=== PATIENT | male | born 1950 | race Caucasian/White ===

== ENCOUNTER 2022-06-19 18:35 | Inpatient (IN) ==
[2022-06-19 19:59] LABS: Basophils # (auto) 0.06 K/uL (0-0.2); Basophils % (auto) 0.6 %; Eosinophils # (auto) 0.32 K/uL (0-0.50); Eosinophils % (auto) 3.4 %; Hematocrit (blood only) 43.5 % (40.1-51.0); Hemoglobin 14.9 g/dl (14.0-18.0); Immature Granulocytes # (auto) 0.05 K/uL (0.00-0.02); Immature Granulocytes % (auto) 0.5 %; Lymphocytes # (auto) 2.04 K/uL (1.2-3.4); Lymphocytes % (auto) 21.5 %; Mean Corpuscular Hemoglobin 32.6 pg (25.0-34.0); Mean Corpuscular Hgb Conc 34.3 g/dL (32.0-36.0); Mean Corpuscular Volume 95.2 fL (80.0-100.0); Monocytes # (auto) 1.15 K/uL (0.24-0.82); Monocytes % (auto) 12.1 %; Neutrophils # (auto) 5.86 K/uL (1.4-6.5); Neutrophils % (auto) 61.9 %; Platelet Count 291 K/uL (130-400); RDW Coefficient of Variation 14.2 % (11.5-14.5); RDW Standard Deviation 49.3 fL (36.4-46.3); Red Blood Count 4.57 M/uL (4.63-6.08); White Blood Count 9.48 K/ul (4.8-10.8)
[2022-06-19 20:26] LABS: Albumin Globulin Ratio 1.3 (0.9-2); Albumin Level 4.1 gm/dl (3.4-5.0); BUN Creatinine Ratio 14.1 (10-20); Calcium 9.5 mg/dl (8.5-10.1); Creatinine Clr Calc Pharmacy 106.8 ml/min; Est GFR (African American) 105.3 ml/min; Est GFR (Non-African American) 90.8 ml/min; Globulin 3.2 gm/dl (2.5-4.0); Potassium 4.4 mmol/L (3.5-5.1); Total Protein 7.3 gm/dl (6.0-8.3)
[2022-06-19] MEDS ORDERED: SODIUM CHLORIDE 0.9% 1000ML 1,000 ML IV ONE (21:16)
[2022-06-19] MEDS ORDERED: PIPERACILLIN/TAZOBACTAM 4.5 GM/120 ML BAG IV ONE (21:16)
--- NOTE | 2022-06-19 21:24 | Emergency Department Note ---
Impression & Plan Catheter-associated urinary tract infection ED Provider Note NAME: LORAINE GALEAS AGE: 71 SEX: M : 1950 ARRIVES VIA: Walk-In INFORMANT: Patient, ED PROVIDER(S): Deep Keene DO CHIEF COMPLAINT: Urinary symptoms HPI: The patient is a 71-year-old male who presented to the emergency department for urinary symptoms. The patient has been dealing with chronic urinary issues over the course of the last year. He has a suprapubic catheter. He also has a stimulator that was implanted in [facility]. This is hopefully to help with his urinary symptoms. He states he noticed cloudy urine recently. He is suprapubic catheter was changed a few weeks ago. He states that he had a urinalysis done as an outpatient on the . He had antibiotics called in by his primary care physician but he was told not to start the antibiotics today as the urine culture returned positive for Pseudomonas which was resistant and would require IV antibiotics. The patient states he has no fever. He has had no vomiting. He does note some abdominal discomfort. He denies having any swelling in the lower extremities. ROS: See above HPI for pertinent positives & negatives. A total of 10 systems reviewed and were otherwise negative. PAST MEDICAL HISTORY: See Below PAST SURGICAL HISTORY: See Below FAMILY HISTORY: See Below SOCIAL HISTORY: See Below HOME MEDICATIONS: See Below ALLERGIES: See Below VITALS: See Below PHYSICAL EXAMINATION: GENERAL: Patient is awake alert in no acute distress patient is resting comfortably and showing no signs of anxiety EYES: The conjunctivae are clear. The pupils are round and reactive. EARS, NOSE, MOUTH AND THROAT: The nose is without any evidence of any deformity. NECK: The neck is nontender and supple. RESPIRATORY: Normal respiratory effort is noted there is no evidence of wheezing rhonchi or rales CARDIOVASCULAR: Regular rate and rhythm noted there no murmurs rubs or gallops normal S1 normal S2. GASTROINTESTINAL: The abdomen was soft and mildly distended. There is no specific tenderness guarding rigidity. MUSCULOSKELETAL/EXTREMITIES: There is no evidence of gross deformity full range of motion is noted in the hips and shoulders. SKIN: The skin is warm and dry. Trace pedal edema was noted bilaterally. NEUROLOGIC: Patient is awake alert and oriented x3 MEDICAL DECISION MAKING: The patient is a 71-year-old male who presented to the emergency department at the request of his physician for an evaluation of urinary tract infection. The patient has a history of a chronic indwelling suprapubic Patel catheter. The patient was found to have Pseudomonas in the urine. He states he has been having cloudy urine. This does appear to be consistent with an acute infection. The patient was treated with IV fluids and IV antibiotics in the emergency department. I discussed patient's laboratory results with him. I also discussed this case with the on-call [facility] hospitalist. They have agreed to evaluate the patient in the emergency department. Triage Nursing notes reviewed. Prior medical records reviewed Vital Signs: reviewed and remarkable for elevated blood pressure. Differential diagnosis: Catheter malfunction, obstruction, dehydration, urinary tract infection, urinary retention, acute kidney injury, as well as other pathologies. ER treatment provided: See below Diagnostics interpreted by me: ECG: none Cardiac Monitoring: An order was placed for continuous cardiac monitoring. The monitor shows a rate of 80 bpm with sinus rhythm. Laboratory studies: As stated above and show below. Imaging studies: See below Consultation(s): I discussed this case with Dr. Oglesby who is on-call for the [facility]ist group. Past Med/Surg History Medical History Asthma Basal cell carcinoma of back Bladder outlet obstruction Bladder wall thickening BPH (benign prostatic hyperplasia) Chronic back pain Hepatic steatosis History of COVID-19 Dx 09/2020 > symptoms at time of: fatigue, loss of taste and smell > resolved Incarcerated ventral hernia Obesity Suprapubic catheter Urethral stricture Urinary retention Surgical History H/O dilation of urethra x3 H/O ventral hernia repair (04/10/22) Robotic Laparoscopic Ventral Hernia Repair with Mesh, Transabdominal pre peritoneal - John Perez DO, FACS History of basal cell carcinoma (BCC) excision (05/28/22) FINAL DIAGNOSIS Skin, left back (punch biopsy): - A micronodular and macronodular basal cell carcinoma is seen. - This basal cell carcinoma extends to the edges of the punch biopsy specimen. - A conservative reexcision of this site to obtain negative surgical margins is suggested. History of cystoscopy irect Visual Internal Urethrotomy History of surgery suprapubic cath placed @ [facility] [place] History of ureter repair STRICTURE Hx of biopsy 10/29/2021: lesion on his back punch biopsy Dr. Perez in office Hx of biopsy Back Mass Wide Local Excision (11/20/21): Grade view 2, MAC#3, [place] 7.5 [place] [facility] [place] Family History Mother Alcohol abuse Bone cancer Dementia Breast cancer She age 85 Uterine cancer Brother Alcohol abuse Brother Depression - suicide. Father Dementia Began after open heart surgery age 89. Still living as of 10/2019. born [birth year] Heart disease valvular Other No family history of adverse response to anesthesia Social History Smoking Status: Never smoker Age Started Using Tobacco: 21; Age Quit Using Tobacco: 26; Years Smoked: 5; Second Hand Exposure: No; Hx Alcohol Use: Yes Alcohol type: wine Alcohol Intake Frequency: 4 or More x per/Week Hx Substance Use: No Preferred Language: Indonesian Communication Ability: Effective Visual Impairment: No Limitations Hearing Ability: Normal Tie Tape Machine Operator Required: No Beliefs That Will Affect Care: None marital status: Current Living Situation: Spouse current occupational status: retired Feels Safe at Home: Yes Childhood Exposure to Second-Hand Smoke: Yes caffeine: Yes Dental Care, Regularly: Yes Physical Activity Frequency: 3-4 Times per Week Physical Activity Frequency Comment: walk Seatbelt Use: always Sunscreen Use: Yes Do you think of yourself as: straight/heterosexual Assistive Devices: None Allergies Allergies Allergy/AdvReac Type Severity Reaction Status Date / Time No Known Allergies Allergy Verified 06/19/22 22:40 Home Meds Home Medications Medication Instructions Recorded Confirmed ascorbate calcium (vitamin C) 500 500 mg PO QAM 03/22/19 06/19/22 mg tablet vitamin B complex 1 cap PO QAM 03/22/19 06/19/22 vitamin E 200 unit capsule 200 units PO QAM 03/22/19 06/19/22 Lactobacillus acidophilus 10 1 cell PO QAM 11/09/19 06/19/22 billion cell capsule (Probiotic) multivitamin 1 tab PO QAM 10/15/20 06/19/22 aspirin 81 mg tablet,delayed 81 mg PO QAM 07/11/21 06/19/22 release (Adult Low Dose Aspirin) cholecalciferol (vitamin D3) 25 1,000 unit PO QAM 10/16/21 06/19/22 mcg (1,000 unit) capsule omega 9-uoh-dtq-fish oil 1,000 mg 1 cap PO QAM 06/19/22 06/19/22 (120 mg-180 mg) capsule (Fish Oil) Previous Rx's Medication Instructions Recorded duloxetine 60 mg capsule,delayed 60 mg PO QAM #30 caps 05/22/22 release levofloxacin 750 mg tablet 750 mg PO DAILY #10 tabs 06/18/22 tramadol 50 mg tablet 50 mg PO HS PRN pain #30 tabs 06/18/22 Results & Data (ED) Vital Signs Vital Signs - 24 hr 06/19/22 19:08 06/19/22 22:00 06/20/22 00:00 Temperature 36.8 C Temperature Source Temporal Artery Scan Pulse Rate 70 Pulse Rate [Finger] 62 88 Pulse Rhythm [Finger] Regular Regular Pulse Strength [Finger] Normal Normal Respiratory Rate 16 18 18 Respiratory Effort / Characteristics Non-Labored Spontaneous Non-Labored Non-Labored Respiratory Depth Normal Normal Normal Respiratory Pattern Regular Regular Regular Blood Pressure 145/95 H Blood Pressure [Right Arm] 164/104 H 146/93 H Blood Pressure Mean 111 Blood Pressure Mean [Right Arm] 124 110 Blood Pressure Position [Right Arm] Lying Lying Pulse Oximetry 98 98 97 Oxygen Delivery Method Room Air Room Air Room Air Sepsis Recent Fever Within 48 Hours No Sepsis New/Unexplained Change in Mental Status No Sepsis Action Taken by Nursing No Action Required Home Medications Current Medication List: was personally reviewed by me Laboratory Data Attestation: I reviewed the patient's lab results. Result diagrams: 06/19/22 19:40 06/19/22 19:40 Lab Results 06/19/22 06/19/22 06/19/22 Range/Units 19:40 19:40 21:07 WBC 9.48 (4.8-10.8) K/ul RBC 4.57 L (4.63-6.08) M/uL Hgb 14.9 (14.0-18.0) g/dl Hct 43.5 (40.1-51.0) % MCV 95.2 (80.0-100.0) fL MCH 32.6 (25.0-34.0) pg MCHC 34.3 (32.0-36.0) g/dL RDW Std Deviation 49.3 H (36.4-46.3) fL RDW Coeff of Mandie 14.2 (11.5-14.5) % Plt Count 291 (130-400) K/uL MPV 9.0 L (9.4-12.4) fL Immature Gran % (Auto) 0.5 % Neut % (Auto) 61.9 % Lymph % (Auto) 21.5 % Kidder % (Auto) 12.1 % Eos % (Auto) 3.4 % Baso % (Auto) 0.6 % Neut # (Auto) 5.86 (1.4-6.5) K/uL Lymph # (Auto) 2.04 (1.2-3.4) K/uL [place] # (Auto) 1.15 H (0.24-0.82) K/uL Eos # (Auto) 0.32 (0-0.50) K/uL Baso # (Auto) 0.06 (0-0.2) K/uL Immature Gran # (Auto) 0.05 H (0.00-0.02) K/uL Sodium 138 (136-145) mmol/L Potassium 4.4 (3.5-5.1) mmol/L Chloride 104 (98-107) mmol/L Carbon Dioxide 25 (21-32) mmol/L Anion Gap 9 (3-11) BUN 11 (6-23) mg/dl Creatinine 0.78 (0.6-1.4) mg/dl Est Cr Clr Drug Dosing 106.8 ml/min Est GFR ( Amer) 105.3 ml/min Est GFR (Non-Af Amer) 90.8 ml/min BUN/Creatinine Ratio 14.1 (10-20) Glucose 80 (70-99(Fasting)) mg/dl Calcium 9.5 (8.5-10.1) mg/dl Total Bilirubin 1.0 (0.2-1.0) mg/dl AST 29 (13-39) U/L ALT 25 (7-52) U/L Alkaline Phosphatase 93 (34-104) U/L Total Protein 7.3 (6.0-8.3) gm/dl Albumin 4.1 (3.4-5.0) gm/dl Globulin 3.2 (2.5-4.0) gm/dl Albumin/Globulin Ratio 1.3 (0.9-2) Urine Color Yellow Urine Appearance Cloudy A (Clear) Urine pH 5.0 (4.5-7.5) Ur Specific [place] 1.017 (1.000-1.030) Urine Protein 1+ H (Negative) Urine Glucose (UA) Negative (Negative) Urine Ketones Negative (Negative) Urine Blood 3+ H (Negative) Urine Nitrite Positive A (Negative) Urine Bilirubin Negative (Negative) Urine Urobilinogen Negative (Negative) Ur Leukocyte Esterase 3+ H (Negative) Urine WBC (Auto) >30 H (0-5) /hpf Urine RBC (Auto) 10-30 H (0-4) /hpf U Hyaline Cast (Auto) 0 (0-5) /lpf U Epithel Cells (Auto) 0-5 (0-5) /lpf Urine Bacteria (Auto) Negative (Negative) Urine Yeast Budding A (None Prsent) SARS-CoV-2, RNA, NAAT (NEGATIVE) 06/19/22 Range/Units 22:00 WBC (4.8-10.8) K/ul RBC (4.63-6.08) M/uL Hgb (14.0-18.0) g/dl Hct (40.1-51.0) % MCV (80.0-100.0) fL MCH (25.0-34.0) pg MCHC (32.0-36.0) g/dL RDW Std Deviation (36.4-46.3) fL RDW Coeff of Mandie (11.5-14.5) % Plt Count (130-400) K/uL MPV (9.4-12.4) fL Immature Gran % (Auto) % Neut % (Auto) % Lymph % (Auto) % Kid[place] % (Auto) % Eos % (Auto) % Baso % (Auto) % Neut # (Auto) (1.4-6.5) K/uL Lymph # (Auto) (1.2-3.4) K/uL [place] # (Auto) (0.24-0.82) K/uL Eos # (Auto) (0-0.50) K/uL Baso # (Auto) (0-0.2) K/uL Immature Gran # (Auto) (0.00-0.02) K/uL Sodium (136-145) mmol/L Potassium (3.5-5.1) mmol/L Chloride (98-107) mmol/L Carbon Dioxide (21-32) mmol/L Anion Gap (3-11) BUN (6-23) mg/dl Creatinine (0.6-1.4) mg/dl Est Cr Clr Drug Dosing ml/min Est GFR ( Amer) ml/min Est GFR (Non-Af Amer) ml/min BUN/Creatinine Ratio (10-20) Glucose (70-99(Fasting)) mg/dl Calcium (8.5-10.1) mg/dl Total Bilirubin (0.2-1.0) mg/dl AST (13-39) U/L ALT (7-52) U/L Alkaline Phosphatase (34-104) U/L Total Protein (6.0-8.3) gm/dl Albumin (3.4-5.0) gm/dl Globulin (2.5-4.0) gm/dl Albumin/Globulin Ratio (0.9-2) Urine Color Urine Appearance (Clear) Urine pH (4.5-7.5) Ur Specific [place] (1.000-1.030) Urine Protein (Negative) Urine Glucose (UA) (Negative) Urine Ketones (Negative) Urine Blood (Negative) Urine Nitrite (Negative) Urine Bilirubin (Negative) Urine Urobilinogen (Negative) Ur Leukocyte Esterase (Negative) Urine WBC (Auto) (0-5) /hpf Urine RBC (Auto) (0-4) /hpf U Hyaline Cast (Auto) (0-5) /lpf U Epithel Cells (Auto) (0-5) /lpf Urine Bacteria (Auto) (Negative) Urine Yeast (None Prsent) SARS-CoV-2, RNA, NAAT NEGATIVE (NEGATIVE) Administered Medications Discontinued Medications Sodium Chloride (Nss 1000ml) 1,000 mls @ 999 mls/hr IV .[id number] ONE Stop: 06/19/22 22:16 Last Infusion: 06/19/22 23:41 Dose: 0 mls/hr Documented By: Admin: 06/19/22 22:03 Dose: 999 mls/hr Documented By: LRS Piperacillin Sod/Tazobactam Sod (Zosyn) 4.5 gm in 120 mls @ 240 mls/hr IV NOW ONE Stop: 06/19/22 21:45 Last Infusion: 06/19/22 22:43 Dose: 0 mls/hr Documented By: Admin: 06/19/22 22:03 Dose: 240 mls/hr Documented By: KINGS Morphine Sulfate (Morphine Sulfate 2 Mg/Ml Carp) 1 mg IV NOW STA Stop: 06/19/22 22:56 Last Admin: 06/19/22 23:04 Dose: 1 mg Documented By: KINGS Discharge Plan Visit Data Chief Complaint: Medication Request Stated Complaint: REFERRD BY DOCTOR, IV FLUIDS, MEDICATION ED Provider: Deep Keene Discharge Problem: Catheter-associated urinary tract infection Patient Disposition: Being Evaluated by Hospitalist Forms Stand Alone Forms: My [facility] Prescriptions Prescriptions: No Action levofloxacin 750 mg tablet 750 mg PO DAILY Qty: 10 0RF tramadol 50 mg tablet 50 mg PO HS PRN (Reason: pain) Qty: 30 0RF duloxetine 60 mg capsule,delayed release(DR/EC) 60 mg PO QAM Qty: 30 3RF Probiotic 10 billion cell capsule 1 cell PO QAM cholecalciferol (vitamin D3) 25 mcg (1,000 unit) capsule 1,000 unit PO QAM ascorbate calcium (vitamin C) 500 mg tablet 500 mg PO QAM vitamin E 200 unit capsule 200 units PO QAM vitamin B complex capsule 1 cap PO QAM multivitamin Tablet 1 tab PO QAM aspirin [Adult Low Dose Aspirin] 81 mg tablet,delayed release (DR/EC) 81 mg PO QAM omega 8-mho-hmk-fish oil [Fish Oil] 1,000 mg (120 mg-180 mg) Capsule 1 cap PO QAM Referrals Referrals: Eduardo Gonzalez DO [Physician] -
[2022-06-19 22:02] LABS: Appearance Urine Cloudy (Clear); Bacteria Urine Automated Negative (Negative); Bilirubin Urine Negative (Negative); Blood Urine 3+ (Negative); Cast Urine Automated 0 /lpf (0-5); Color Urine Yellow; Epithelial Cell Urine Auto 0-5 /lpf (0-5); Glucose Urine UA Negative (Negative); Ketones Urine Negative (Negative); Leukocyte Esterase Urine 3+ (Negative); Nitrite Urine Positive (Negative); Protein Urine 1+ (Negative); Specific Gravity Urine 1.017 (1.000-1.030); Urobilinogen Urine Negative (Negative); WBC Urine Automated >30 /hpf (0-5)
--- NOTE | 2022-06-19 22:10 | History & Physical Report ---
Date of Service June 19, 2022 Assessment & Plan (1) Catheter-associated urinary tract infection: Plan: -Zosyn -Urology consultation -Bladder scan as needed -Flush catheter as needed -Morphine PRN (2) Depression: Plan: Chronic. 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 Cooper. Patient had a suprapubic catheter placed as well at [facility] [place]. He reports that the site has never done well. He has a considerable amount of crusting and discharge. He has noted purulent urine over the last 11-12 days - described as frothy and opaque. Also with bladder pressure and difficulty passing urine over the last several days. He denies fever, chills, chest pain, cough, SOB, nausea, vomiting, diarrhea or constipation. Had UA performed which suggested infection. Culture with Pseudomonas - resi stant to Cipro and Levaquin. In the ER he is afebrile, HD stable, NAD. Complaining of suprapubic pain, requesting medication. ER Course: Zosyn, Morphine, NSS Allergies Allergy/AdvReac Type Severity Reaction Status Date / Time No Known Allergies Allergy Verified 06/19/22 22:40 Home Medications Medication Instructions Recorded Confirmed Type ascorbate calcium (vitamin C) 500 500 mg PO QAM 03/22/19 06/19/22 History mg tablet vitamin B complex 1 cap PO QAM 03/22/19 06/19/22 History vitamin E 200 unit capsule 200 units PO QAM 03/22/19 06/19/22 History Lactobacillus acidophilus 10 1 cell PO QAM 11/09/19 06/19/22 History billion cell capsule (Probiotic) multivitamin 1 tab PO QAM 10/15/20 06/19/22 History aspirin 81 mg tablet,delayed 81 mg PO QAM 07/11/21 06/19/22 History release (Adult Low Dose Aspirin) cholecalciferol (vitamin D3) 25 1,000 unit PO QAM 10/16/21 06/19/22 History mcg (1,000 unit) capsule duloxetine 60 mg capsule,delayed 60 mg PO QAM #30 caps 05/22/22 06/19/22 Rx release levofloxacin 750 mg tablet 750 mg PO DAILY #10 tabs 06/18/22 06/19/22 Rx tramadol 50 mg tablet 50 mg PO HS PRN pain #30 tabs 06/18/22 06/19/22 Rx omega 4-ofn-xtg-fish oil 1,000 mg 1 cap PO QAM 06/19/22 06/19/22 History (120 mg-180 mg) capsule (Fish Oil) Past Med/Surg History Medical History Asthma Basal cell carcinoma of back Bladder outlet obstruction Bladder wall thickening BPH (benign prostatic hyperplasia) Chronic back pain Hepatic steatosis History of COVID-19 Dx 09/2020 > symptoms at time of: fatigue, loss of taste and smell > resolved Incarcerated ventral hernia Obesity Suprapubic catheter Urethral stricture Urinary retention Surgical History H/O dilation of urethra x3 H/O ventral hernia repair (04/10/22) Robotic Laparoscopic Ventral Hernia Repair with Mesh, Transabdominal pre per trixie Perez DO, FACS History of basal cell carcinoma (BCC) excision (05/28/22) FINAL DIAGNOSIS Skin, left back (punch biopsy): - A micronodular and macronodular basal cell carcinoma is seen. - This basal cell carcinoma extends to the edges of the punch biopsy specimen. - A conservative reexcision of this site to obtain negative surgical margins is suggested. History of cystoscopy irect Visual Internal Urethrotomy History of surgery suprapubic cath [place] [facility] [place] History of ureter repair STRICTURE Hx of biopsy 10/29/2021: lesion on his back punch biopsy Dr. Perez in office Hx of biopsy Back Mass Wide Local Excision (11/20/21): Grade view 2, MAC#3, ETT 7.5 at [facility] [place] tonsillectomy Family History Mother Alcohol abuse Bone cancer Dementia Breast cancer She age 85 Uterine cancer Brother Alcohol abuse Brother Depression - suicide. Father Dementia Began after open heart surgery age 89. Still living as of 10/2019. born 1923 Heart disease valvular Other No family history of adverse response to anesthesia Social History Smoking Status: Former smoker Age Started Using Tobacco: 21; Age Quit Using Tobacco: 26; Years Smoked: 5; Second Hand Exposure: No; Hx Alcohol Use: Yes Alcohol type: wine Alcohol Intake Frequency: 4 or More x per/Week Hx Substance Use: No Preferred Language: [place] Korean Communication Ability: Effective Visual Impairment: No Limitations Hearing Ability: Normal Lookback Coordinator Required: No Beliefs That Will Affect Care: None marital status: Current Living Situation: Spouse Current Living Situation Comment: current occupational status: retired Other Information That Helps Us Care for You: No Feels Safe at Home: Yes Safety Concerns: Feels Safe At This Time Childhood Exposure to Second-Hand Smoke: Yes caffeine: Yes Dental Care, Regularly: Yes Physical Activity Frequency: 3-4 Times per Week Physical Activity Frequency Comment: walk Seatbelt Use: always Sunscreen Use: Yes Do you think of yourself as: straight/heterosexual Assistive Devices: None Review of Systems Review of Systems: All systems reviewed & are unremarkable except as noted in HPI & below Physical Exam Physical Exam: General: patient resting comfortably, NAD, non-toxic in appearance, AA&O x 4 Skin: warm, dry, intact, no rashes or lesions HEENT: NC/AT, PERRL, EOMI, anicteric sclera, conjunctiva without injection, external ear normal to inspection and nontender, nares patent, moist mucus membranes, dentition intact, no oropharyngeal lesions, neck supple, trachea midline, no LAD, no thyromegaly, no JVD Heart: +S1/S2, regular, no m/r/g Lungs: equal air entry bilaterally, no rales/rhonchi/wheezes Abd: +BS, soft, NT/ND, no masses/organomegaly/ascites, suprapubic catheter with crusting at entry site, bladder stimulator present on back Ext: warm, 2+ pulses in UE/LE bilaterally, no clubbing/cyanosis or edema Neuro: nonfocal, patient AA&O x 4, speech intact, no facial droop, moving all extremities on command with equal strength 5/5 Results & Data Results & Data ([facility]) Vital Signs (Past 12 Hours) Vital Signs Temp Pulse Pulse Resp BP BP Pulse Ox 06/19/22 22:00 62 18 164/104 H 98 06/19/22 19:08 36.8 C 70 16 145/95 H 98 O2 Del Method 06/19/22 22:00 Room Air 06/19/22 19:08 Room Air Laboratory Results Laboratory Results WBC 9.48 K/ul (4.8-10.8) 06/19/22 19:40 RBC 4.57 M/uL (4.63-6.08) L 06/19/22 19:40 Hgb 14.9 g/dl (14.0-18.0) 06/19/22 19:40 Hct 43.5 % (40.1-51.0) 06/19/22 19:40 MCV 95.2 fL (80.0-100.0) 06/19/22 19:40 MCH 32.6 pg (25.0-34.0) 06/19/22 19:40 MCHC 34.3 g/dL (32.0-36.0) 06/19/22 19:40 RDW Std Deviation 49.3 fL (36.4-46.3) H 06/19/22 19:40 RDW Coeff of Mandie 14.2 % (11.5-14.5) 06/19/22 19:40 Plt Count 291 K/uL (130-400) 06/19/22 19:40 MPV 9.0 fL (9.4-12.4) L 06/19/22 19:40 Immature Gran % (Auto) 0.5 % 06/19/22 19:40 Neut % (Auto) 61.9 % 06/19/22 19:40 Lymph % (Auto) 21.5 % 06/19/22 19:40 [place] % (Auto) 12.1 % 06/19/22 19:40 Eos % (Auto) 3.4 % 06/19/22 19:40 Baso % (Auto) 0.6 % 06/19/22 19:40 Neut # (Auto) 5.86 K/uL (1.4-6.5) 06/19/22 19:40 Lymph # (Auto) 2.04 K/uL (1.2-3.4) 06/19/22 19:40 [place] # (Auto) 1.15 K/uL (0.24-0.82) H 06/19/22 19:40 Eos # (Auto) 0.32 K/uL (0-0.50) 06/19/22 19:40 Baso # (Auto) 0.06 K/uL (0-0.2) 06/19/22 19:40 Immature Gran # (Auto) 0.05 K/uL (0.00-0.02) H 06/19/22 19:40 Sodium 138 mmol/L (136-145) 06/19/22 19:40 Potassium 4.4 mmol/L (3.5-5.1) 06/19/22 19:40 Chloride 104 mmol/L (98-107) 06/19/22 19:40 Carbon Dioxide 25 mmol/L (21-32) 06/19/22 19:40 Anion Gap 9 (3-11) 06/19/22 19:40 BUN 11 mg/dl (6-23) 06/19/22 19:40 Creatinine 0.78 mg/dl (0.6-1.4) 06/19/22 19:40 Est Cr Clr Drug Dosing 106.8 ml/min 06/19/22 19:40 Est GFR ( Amer) 105.3 ml/min 06/19/22 19:40 Est GFR (Non-Af Amer) 90.8 ml/min 06/19/22 19:40 BUN/Creatinine Ratio 14.1 (10-20) 06/19/22 19:40 Glucose 80 mg/dl (70-99(Fasting)) 06/19/22 19:40 Calcium 9.5 mg/dl (8.5-10.1) 06/19/22 19:40 Total Bilirubin 1.0 mg/dl (0.2-1.0) 06/19/22 19:40 AST 29 U/L (13-39) 06/19/22 19:40 ALT 25 U/L (7-52) 06/19/22 19:40 Alkaline Phosphatase 93 U/L (34-104) 06/19/22 19:40 Total Protein 7.3 gm/dl (6.0-8.3) 06/19/22 19:40 Albumin 4.1 gm/dl (3.4-5.0) 06/19/22 19:40 Globulin 3.2 gm/dl (2.5-4.0) 06/19/22 19:40 Albumin/Globulin Ratio 1.3 (0.9-2) 06/19/22 19:40 Urine Color Yellow 06/19/22 21:07 Urine Appearance Cloudy (Clear) A 06/19/22 21:07 Urine pH 5.0 (4.5-7.5) 06/19/22 21:07 Ur Specific [place] 1.017 (1.000-1.030) 06/19/22 21:07 Urine Protein 1+ (Negative) H 06/19/22 21:07 Urine Glucose (UA) Negative (Negative) 06/19/22 21: Urine Ketones Negative (Negative) 06/19/22 21: Urine Blood 3+ (Negative) H 06/19/22 21:07 Urine Nitrite Positive (Negative) A 06/19/22 21: Urine Bilirubin Negative (Negative) 06/19/22 21:07 Urine Urobilinogen Negative (Negative) 06/19/22 21:07 Ur Leukocyte Esterase 3+ (Negative) H 06/19/22 21:07 Urine WBC (Auto) >30 /hpf (0-5) H 06/19/22 21:07 Urine RBC (Auto) 10-30 /hpf (0-4) H 06/19/22 21:07 U Hyaline Cast (Auto) 0 /lpf (0-5) 06/19/22 21:07 U Epithel Cells (Auto) 0-5 /lpf (0-5) 06/19/22 21:07 Urine Bacteria (Auto) Negative (Negative) 06/19/22 21: Urine Yeast Budding (None Prsent) A 06/19/22 21:07 SARS-CoV-2, RNA, NAAT NEGATIVE (NEGATIVE) 06/19/22 22:00 Code Status & VTE Plan VTE Prophylaxis Plan VTE Prophylaxis will be ordered: Yes PG Care Time/CCT Total # of Minutes Spent Total Time Spent with Patient: Total time spent is greater than 50% in coordination of care (as documented) at patient's floor/unit and/or counseling patient: Coding Level of Care Code 45922 Initial Inpt Care Lvl 2 Diagnoses Catheter-associated urinary tract infection T83.511A; N39.0 Encounter type: initial encounter Indwelling urinary catheter type: unspecified Depression F32.9 (1) Catheter-associated urinary tract infection Encounter type: initial encounter Indwelling urinary catheter type: unspecified Qualified Code(s): T83.511A - Infection and inflammatory reaction due to indwelling urethral catheter, initial encounter; N39.0 - Urinary tract infection, site not specified
[2022-06-19] MEDS ORDERED: MoRPHine SULFATE 2 MG/ML CARP IV STA (22:55)
[2022-06-20] MEDS ORDERED: ACETAMINOPHEN 325 MG TAB PO PRN (01:39)
[2022-06-20] MEDS ORDERED: ONDANSETRON INJ 2 MG/ML 2 ML VIAL IV PRN (01:39)
[2022-06-20] MEDS ORDERED: DOCUSATE SODIUM 100 MG CAP PO PRN (01:39)
[2022-06-20] MEDS: LACTATED RINGER'S 1,000 ML IV SCH ×2 (02:27→14:48)
[2022-06-20] MEDS: MoRPHine SULFATE 2 MG/ML CARP IV PRN ×5 (03:19→20:02)
[2022-06-20] MEDS: PIPERACILLIN/TAZOBACTAM 4.5 GM in DEXTROSE 5% 100 ML IV SCH ×3 (03:28→20:02)
[2022-06-20 08:16] LABS: Hematocrit (blood only) 40.5 % (40.1-51.0); Mean Corpuscular Hemoglobin 32.7 pg (25.0-34.0); Mean Corpuscular Hgb Conc 34.6 g/dL (32.0-36.0); Mean Corpuscular Volume 94.6 fL (80.0-100.0); Mean Platelet Volume 9.3 fL (9.4-12.4); Platelet Count 245 K/uL (130-400); RDW Standard Deviation 48.5 fL (36.4-46.3); Red Blood Count 4.28 M/uL (4.63-6.08); White Blood Count 7.51 K/ul (4.8-10.8)
[2022-06-20] MEDS: DULoxetine HCL 60 MG CAP PO SCH (08:27)
[2022-06-20] MEDS: ASPIRIN 81 MG ECTAB PO SCH (08:27)
[2022-06-20] MEDS: ENOXAPARIN INJ 40 MG/0.4 ML SYR SQ SCH (08:28)
[2022-06-20 08:38] LABS: BUN Creatinine Ratio 12.9 (10-20); Calcium 9.1 mg/dl (8.5-10.1); Est GFR (African American) 101.6 ml/min; Est GFR (Non-African American) 87.7 ml/min; Potassium 3.9 mmol/L (3.5-5.1)
--- NOTE | 2022-06-20 08:50 | Urology Consultation ---
Date of Consultation June 20, 2022 Assessment & Plan (1) Catheter-associated urinary tract infection: (2) Suprapubic catheter: Plan 71yo M with a suprapubic catheter and temporary Medtronic bladder stimulator in place admitted with Pseudomonas UTI. - Reviewed with Dr. Ledesma. - Afebrile and hemodynamically stable. - Labs reviewed - WBC 7.51, Creatinine 0.85. - UC&S 06/17 with Pseudomonas; UC&S 06/19 pending; Blood cultures pending. - On IV Zosyn, follow cultures. - No plan for urological intervention. OK to have diet from standpoint. - 16Fr Suprapubic catheter exchanged at bedside without difficulty. Pt tolerated well. - Maintain suprapubic catheter. - Continue supportive care and antibiotic therapy. - Pt has f/u with his urology team at [facility] on 06/25, plans to keep as scheduled. - Urology will sign-off for now. Please contact us with any further questions, concerns, or changes in patient status. Supervising Physician Co-Signing Physician Notes Discussed patient with CHRISTAL. Agree with plan. Saw patient personally and helped with SP tube exchange. F/U with [place] [facility] for postoperative care from sacral neuromodulator placement. History of Present Illness Reason for Consultation: Suprapubic catheter, UTI Attending Physician: Cristiana Mensah MD History of Present Illness 71yo male with history of urethroplasty in the , urinary retention with detrusor inactivity (presently has a temporary MedTronic bladder stimulator in place which was placed at [facility] on 06/11/[address] Cooper) and a suprapubic catheter (also placed at [facility]) admitted with Pseudomonas UTI. The patient had a urine culture done as an outpatient on 06/17. The urine culture finalized with Pseudomonas, however was resistant to oral options and requires IV antibiotics. On arrival, he reported cloudy urine, some bladder pressure, and some difficulty passing urine over the last several days. Patient currently follows with urology at [facility]. He is status post stage I InterStim sacral neuromodulation, placement of electrodes on 06/11/2022 at [facility]. Per operative note review, the patient was to follow-up in 1 week for removal of electrodes or full implantation of device. He was also do a plugging trial with attempt to void spontaneously in the interim. Patient examined at bedside this AM. Awake, resting bed on arrival. No acute distress. Suprapubic catheter intact, currently plugged. Pt drains every couple of hours. 575ml output documented this morning. Denies hematuria or dysuria. Does note site irritation/tenderness and drainage. Urine has been cloudy. SP tube last exchanged 05/03/22 per [facility]. He denies fevers or chills. Denies nausea or vomiting. Has f/u with Urology on 06/25 at [facility]. Will either have electrodes removed or full implantation at that time. No additional complaints or concerns at time of exam. Allergies Allergy/AdvReac Type Severity Reaction Status Date / Time No Known Allergies Allergy Verified 06/19/22 22:40 Home Medications Medication Instructions Recorded Confirmed Type ascorbate calcium (vitamin C) 500 500 mg PO QAM 03/22/19 06/19/22 History mg tablet vitamin B complex 1 cap PO QAM 03/22/19 06/19/22 History vitamin E 200 unit capsule 200 units PO QAM 03/22/19 06/19/22 History Lactobacillus acidophilus 10 1 cell PO QAM 11/09/19 06/19/22 History billion cell capsule (Probiotic) multivitamin 1 tab PO QAM 10/15/20 06/19/22 History aspirin 81 mg tablet,delayed 81 mg PO QAM 07/11/21 06/19/22 History release (Adult Low Dose Aspirin) cholecalciferol (vitamin D3) 25 1,000 unit PO QAM 10/16/21 06/19/22 History mcg (1,000 unit) capsule duloxetine 60 mg capsule,delayed 60 mg PO QAM #30 caps 05/22/22 06/19/22 Rx release levofloxacin 750 mg tablet 750 mg PO DAILY #10 tabs 06/18/22 06/19/22 Rx tramadol 50 mg tablet 50 mg PO HS PRN pain #30 tabs 06/18/22 06/19/22 Rx omega 3-udw-ibd-fish oil 1,000 mg 1 cap PO QAM 06/19/22 06/19/22 History (120 mg-180 mg) capsule (Fish Oil) piperacillin-tazobactam 3.375 3.375 g (56.25 mL) IV Q6H 8 days 06/20/22 Rx gram/50 mL dextrose(iso-os) IV #1,800 mL piggyback (Zosyn) Patient History Medical History Asthma Basal cell carcinoma of back Bladder outlet obstruction Bladder wall thickening BPH (benign prostatic hyperplasia) Chronic back pain Hepatic steatosis History of COVID-19 Dx 09/2020 > symptoms at time of: fatigue, loss of taste and smell > resolved Incarcerated ventral hernia Obesity Suprapubic catheter Urethral stricture Urinary retention Surgical History H/O dilation of urethra x3 H/O ventral hernia repair (04/10/22) Robotic Laparoscopic Ventral Hernia Repair with Mesh, Transabdominal pre peritoneal - John Perez, , FACS History of basal cell carcinoma (BCC) excision (05/28/22) FINAL DIAGNOSIS Skin, left back (punch biopsy): - A micronodular and macronodular basal cell carcinoma is seen. - This basal cell carcinoma extends to the edges of the punch biopsy specimen. - A conservative reexcision of this site to obtain negative surgical margins is suggested. History of cystoscopy irect Visual Internal Urethrotomy History of surgery suprapubic cath placed @ [facility] History of ureter repair STRICTURE Hx of biopsy 10/29/2021: lesion on his back punch biopsy Dr. Perez in office Hx of biopsy Back Mass Wide Local Excision (11/20/21): Grade view 2, MAC#3, ETT 7.5 at [facility] [place] tonsillectomy Family History Mother Alcohol abuse Bone cancer Dementia Breast cancer She age 85 Uterine cancer Brother Alcohol abuse Brother Depression - suicide. Father Dementia Began after open heart surgery age 89. Still living as of 10/2019. born 1923 Heart disease valvular Other No family history of adverse response to anesthesia Social History Smoking Status: Former smoker Age Started Using Tobacco: 21; Age Quit Using Tobacco: 26; Years Smoked: 5; Second Hand Exposure: No; Hx Alcohol Use: Yes Alcohol type: wine Alcohol Intake Frequency: 4 or More x per/Week Hx Substance Use: No Preferred Language: Divehi Communication Ability: Effective Visual Impairment: No Limitations Hearing Ability: Normal Physical Education Department Chair Required: No Beliefs That Will Affect Care: None marital status: Current Living Situation: Spouse Current Living Situation Comment: current occupational status: retired How many Children do You have: 1 Feels Safe at Home: Yes Childhood Exposure to Second-Hand Smoke: Yes caffeine: Yes Dental Care, Regularly: Yes Physical Activity Frequency: 3-4 Times per Week Physical Activity Frequency Comment: walk Seatbelt Use: always Sunscreen Use: Yes Do you think of yourself as: straight/heterosexual Assistive Devices: None Review of Systems Review of Systems: All systems reviewed & are unremarkable except as noted in HPI & below Physical Exam Constitutional: cooperative; no acute distress Eyes: PERRL, conjunctivae normal, anicteric sclerae ENMT: external ear and nose normal, oropharynx normal Neck: normal visual inspection Respiratory: no respiratory distress and no labored breathing Gastrointestinal (Abdomen): Suprapubic catheter intact. Mild erythema surrounding site. Small amount of drainage noted. Musculoskeletal: Head/Neck/Chest: normocephalic Skin: No visible rashes or lesions to exposed skin areas Neurologic: awake Psychiatric: A+Ox3, euthymic affect Results & Data ([facility]) Vital Signs (Past 12 Hours) Vital Signs Temp Pulse Resp BP Pulse Ox O2 Del Method 06/20/22 07:17 36.7 C 64 16 153/97 H 99 Room Air 06/20/22 01:30 36.4 C 63 18 167/92 H 100 Room Air 06/20/22 00:00 88 18 146/93 H 97 Room Air 06/19/22 22:00 62 18 164/104 H 98 Room Air PG Care Time/CCT Total # of Minutes Spent Total Time Spent with Patient: Total time spent is greater than 50% in coordination of care (as documented) at patient's floor/unit and/or counseling patient: Coding Level of Care Code 83305 Initial Inpt Care Lvl 2 Diagnoses Catheter-associated urinary tract infection T83.511A; N39.0 Encounter type: initial encounter Indwelling urinary catheter type: unspecified Suprapubic catheter Z93.59 (1) Catheter-associated urinary tract infection Encounter type: initial encounter Indwelling urinary catheter type: unspecified Qualified Code(s): T83.511A - Infection and inflammatory reaction due to indwelling urethral catheter, initial encounter; N39.0 - Urinary tract infection, site not specified
--- NOTE | 2022-06-20 13:54 | Hospitalist Progress Note ---
Date of Service June 20, 2022 Assessment & Plan (1) Catheter-associated urinary tract infection: Plan: With suprapubic catheter in place x5 weeks, presents with almost 2 weeks of cloudy and infected appearing urine along with discomfort in the lower abdomen Growing Pseudomonas aeruginosa resistant to fluoroquinolones on multiple urine cultures over the last month, but most recently on 06/17 now resistant to fluoroquinolones No signs or symptoms of sepsis -Continue Zosyn and recommend 10-day course of treatment -Appreciate urology-have asked them to exchange suprapubic catheter which was done on 06/20 -Urology consultation appreciated -Bladder scan as needed -Flush catheter as needed -Morphine PRN (2) Atonic bladder: Plan: Severe, currently with trial of Medtronic bladder stimulator in place, surgically placed at [facility] on 06/11 Has follow-up planned for 06/25 for removal of trial stimulator (3) Depression: Plan: Chronic. Well controlled on medication -Continue Duloxetine Plan F/E/N - LR at 80mL/hr x 2 liters and then complete, advance diet to regular Ppx - Lovenox Code - Full Dispo -continued stay on medical/surgical, but hopefully discharge to home tomorrow with IV antibiotics if blood cultures remain negative and doing well Admission and Anticipated Discharge Date Admission Date: June 19, 2022 Subjective Patient feeling exhausted as he did not get any sleep through the night while in the ER waiting for a bed on the floor. He denies any chest pain or shortness of breath, no lightheadedness. He reviewed his year-long history of bladder issues with me which has been very severe. He is having some occasional lower abdominal pain but nothing severe. He is feeling frustrated about his situation. He states that since having the suprapubic catheter for the last 5 weeks, it has not been exchanged that he knows of. His urine has been "opaque" for the last 11 days. No fevers or chills. He and his are open to home IV antibiotics. Review of Systems Review of Systems: All systems reviewed & are unremarkable except as noted in HPI & below Physical Exam Constitutional: WD/WN, vitals as above Eyes: + anicteric sclerae Neck: trachea midline, no thyromegaly Respiratory: normal respiratory effort, lungs clear to auscultation Cardiovascular: RRR, no murmur, no edema Chest (Breasts): Chest: normal inspection of chest Gastrointestinal (Abdomen): normal bowel sounds, soft, nontender, no hepatosplenomegaly Musculoskeletal: Extremities: extremities normal to inspection; no cyanosis an d no clubbing Skin: Multiple small scabs on face Neurologic: moves all extremities and awake; no focal motor deficits Psychiatric: A+Ox3, euthymic affect Genitourinary: + external lesion (SP catheter site with pyogenic granuloma around catheter) Lymphatic: no lymphedema Results & Data Results & Data ([facility]) Vital Signs (Past 12 Hours) Vital Signs Temp Pulse Resp BP Pulse Ox O2 Del Method 06/20/22 07:17 36.7 C 64 16 153/97 H 99 Room Air Laboratory Results 06/20/22 06/20/22 06/19/22 Range/Units 07:54 07:54 22:00 WBC 7.51 (4.8-10.8) K/ul RBC 4.28 L (4.63-6.08) M/uL Hgb 14.0 (14.0-18.0) g/dl Hct 40.5 (40.1-51.0) % MCV 94.6 (80.0-100.0) fL MCH 32.7 (25.0-34.0) pg MCHC 34.6 (32.0-36.0) g/dL RDW Std Deviation 48.5 H (36.4-46.3) fL RDW Coeff of Mandie 14.0 (11.5-14.5) % Plt Count 245 (130-400) K/uL MPV 9.3 L (9.4-12.4) fL Immature Gran % (Auto) % Neut % (Auto) % Lymph % (Auto) % [place] % (Auto) % Eos % (Auto) % Baso % (Auto) % Neut # (Auto) (1.4-6.5) K/uL Lymph # (Auto) (1.2-3.4) K/uL [place] # (Auto) (0.24-0.82) K/uL Eos # (Auto) (0-0.50) K/uL Baso # (Auto) (0-0.2) K/uL Immature Gran # (Auto) (0.00-0.02) K/uL Sodium 137 (136-145) mmol/L Potassium 3.9 (3.5-5.1) mmol/L Chloride 104 (98-107) mmol/L Carbon Dioxide 27 (21-32) mmol/L Anion Gap 6 (3-11) BUN 11 (6-23) mg/dl Creatinine 0.85 (0.6-1.4) mg/dl Est Cr Clr Drug Dosing 98.0 ml/min Est GFR ( Amer) 101.6 ml/min Est GFR (Non-Af Amer) 87.7 ml/min BUN/Creatinine Ratio 12.9 (10-20) Glucose 96 (70-99(Fasting)) mg/dl Calcium 9.1 (8.5-10.1) mg/dl Total Bilirubin (0.2-1.0) mg/dl AST (13-39) U/L ALT (7-52) U/L Alkaline Phosphatase (34-104) U/L Total Protein (6.0-8.3) gm/dl Albumin (3.4-5.0) gm/dl Globulin (2.5-4.0) gm/dl Albumin/Globulin Ratio (0.9-2) Urine Color Urine Appearance (Clear) Urine pH (4.5-7.5) Ur Specific [place] (1.000-1.030) Urine Protein (Negative) Urine Glucose (UA) (Negative) Urine Ketones (Negative) Urine Blood (Negative) Urine Nitrite (Negative) Urine Bilirubin (Negative) Urine Urobilinogen (Negative) Ur Leukocyte Esterase (Negative) Urine WBC (Auto) (0-5) /hpf Urine RBC (Auto) (0-4) /hpf U Hyaline Cast (Auto) (0-5) /lpf U Epithel Cells (Auto) (0-5) /lpf Urine Bacteria (Auto) (Negative) Urine Yeast (None Prsent) SARS-CoV-2, RNA, NAAT NEGATIVE (NEGATIVE) 06/19/22 06/19/22 06/19/22 Range/Units 21:07 19:40 19:40 WBC 9.48 (4.8-10.8) K/ul RBC 4.57 L (4.63-6.08) M/uL Hgb 14.9 (14.0-18.0) g/dl Hct 43.5 (40.1-51.0) % MCV 95.2 (80.0-100.0) fL MCH 32.6 (25.0-34.0) pg MCHC 34.3 (32.0-36.0) g/dL RDW Std Deviation 49.3 H (36.4-46.3) fL RDW Coeff of Mandie 14.2 (11.5-14.5) % Plt Count 291 (130-400) K/uL MPV 9.0 L (9.4-12.4) fL Immature Gran % (Auto) 0.5 % Neut % (Auto) 61.9 % Lymph % (Auto) 21.5 % [place] % (Auto) 12.1 % Eos % (Auto) 3.4 % Baso % (Auto) 0.6 % Neut # (Auto) 5.86 (1.4-6.5) K/uL Lymph # (Auto) 2.04 (1.2-3.4) K/uL [place] # (Auto) 1.15 H (0.24-0.82) K/uL Eos # (Auto) 0.32 (0-0.50) K/uL Baso # (Auto) 0.06 (0-0.2) K/uL Immature Gran # (Auto) 0.05 H (0.00-0.02) K/uL Sodium 138 (136-145) mmol/L Potassium 4.4 (3.5-5.1) mmol/L Chloride 104 (98-107) mmol/L Carbon Dioxide 25 (21-32) mmol/L Anion Gap 9 (3-11) BUN 11 (6-23) mg/dl Creatinine 0.78 (0.6-1.4) mg/dl Est Cr Clr Drug Dosing 106.8 ml/min Est GFR ( Amer) 105.3 ml/min Est GFR (Non-Af Amer) 90.8 ml/min BUN/Creatinine Ratio 14.1 (10-20) Glucose 80 (70-99(Fasting)) mg/dl Calcium 9.5 (8.5-10.1) mg/dl Total Bilirubin 1.0 (0.2-1.0) mg/dl AST 29 (13-39) U/L ALT 25 (7-52) U/L Alkaline Phosphatase 93 (34-104) U/L Total Protein 7.3 (6.0-8.3) gm/dl Albumin 4.1 (3.4-5.0) gm/dl Globulin 3.2 (2.5-4.0) gm/dl Albumin/Globulin Ratio 1.3 (0.9-2) Urine Color Yellow Urine Appearance Cloudy A (Clear) Urine pH 5.0 (4.5-7.5) Ur Specific [place] 1.017 (1.000-1.030) Urine Protein 1+ H (Negative) Urine Glucose (UA) Negative (Negative) Urine Ketones Negative (Negative) Urine Blood 3+ H (Negative) Urine Nitrite Positive A (Negative) Urine Bilirubin Negative (Negative) Urine Urobilinogen Negative (Negative) Ur Leukocyte Esterase 3+ H (Negative) Urine WBC (Auto) >30 H (0-5) /hpf Urine RBC (Auto) 10-30 H (0-4) /hpf U Hyaline Cast (Auto) 0 (0-5) /lpf U Epithel Cells (Auto) 0-5 (0-5) /lpf Urine Bacteria (Auto) Negative (Negative) Urine Yeast Budding A (None Prsent) SARS-CoV-2, RNA, NAAT (NEGATIVE) PG Care Time/CCT Total # of Minutes Spent Total Time Spent with Patient: Total time spent is greater than 50% in coordination of care (as documented) at patient's floor/unit and/or counseling patient: Coding Level of Care Code 92607 Subseq Hosp Care Lvl 2 Diagnoses Catheter-associated urinary tract infection T83.511A; N39.0 Encounter type: initial encounter Indwelling urinary catheter type: unspecified Atonic bladder N31.2 Depression F32.9 (1) Catheter-associated urinary tract infection Encounter type: initial encounter Indwelling urinary catheter type: unspecified Qualified Code(s): T83.511A - Infection and inflammatory reaction due to indwelling urethral catheter, initial encounter; N39.0 - Urinary tract infection, site not specified
[2022-06-21] MEDS: MoRPHine SULFATE 2 MG/ML CARP IV PRN ×5 (00:11→19:34)
[2022-06-21] MEDS: PIPERACILLIN/TAZOBACTAM 4.5 GM in DEXTROSE 5% 100 ML IV SCH ×3 (04:23→19:34)
[2022-06-21 07:56] LABS: Basophils # (auto) 0.06 K/uL (0-0.2); Basophils % (auto) 0.7 %; Eosinophils # (auto) 0.52 K/uL (0-0.50); Hematocrit (blood only) 41.4 % (40.1-51.0); Hemoglobin 14.4 g/dl (14.0-18.0); Immature Granulocytes # (auto) 0.03 K/uL (0.00-0.02); Immature Granulocytes % (auto) 0.3 %; Lymphocytes % (auto) 13.9 %; Mean Corpuscular Hemoglobin 32.4 pg (25.0-34.0); Mean Corpuscular Hgb Conc 34.8 g/dL (32.0-36.0); Mean Platelet Volume 9.2 fL (9.4-12.4); Monocytes # (auto) 1.13 K/uL (0.24-0.82); Monocytes % (auto) 13.1 %; Neutrophils # (auto) 5.67 K/uL (1.4-6.5); Platelet Count 236 K/uL (130-400); RDW Coefficient of Variation 13.8 % (11.5-14.5); RDW Standard Deviation 46.9 fL (36.4-46.3); Red Blood Count 4.45 M/uL (4.63-6.08); White Blood Count 8.61 K/ul (4.8-10.8)
[2022-06-21] MEDS: ENOXAPARIN INJ 40 MG/0.4 ML SYR SQ SCH (08:15)
[2022-06-21] MEDS: DULoxetine HCL 60 MG CAP PO SCH (08:16)
[2022-06-21] MEDS: ASPIRIN 81 MG ECTAB PO SCH (08:16)
[2022-06-21 08:25] LABS: BUN Creatinine Ratio 13.4 (10-20); Calcium 8.9 mg/dl (8.5-10.1); Creatinine Clr Calc Pharmacy 101.6 ml/min; Est GFR (African American) 103.1 ml/min; Potassium 3.9 mmol/L (3.5-5.1)
[2022-06-21] MEDS ORDERED: MELATONIN 3 MG TAB PO PRN (11:42)
[2022-06-21] MEDS ORDERED: POLYETHYLENE (MIRALAX) 17 GM PACK PO PRN (11:42)
--- NOTE | 2022-06-21 11:51 | Hospitalist Progress Note ---
Date of Service June 21, 2022 Assessment & Plan (1) Catheter-associated urinary tract infection: Plan: With suprapubic catheter in place x5 weeks, presents with almost 2 weeks of cloudy and infected appearing urine along with discomfort in the lower abdomen Growing Pseudomonas aeruginosa on multiple urine cultures over the last month, but most recently on 06/17 now resistant to fluoroquinolones No signs or symptoms of sepsis Continues to have some lower abd pains, poor appetite, fatigue Urine now appears clear and no longer looks infected -Continue Zosyn and recommend 10-day course of treatment-last dose will be end of day 06/29 -Appreciate urology-have asked them to exchange suprapubic catheter which was done on 06/20 -Urology consultation appreciated -change Bladder scan to scheduled qshift to see if having any retention since having bladder stimulator placed -Flush catheter as needed -Morphine PRN but will also add on po option of hydrocodone prn mod-severe pain, continue APAP po for mild pain -Case Man has arranged home IV Zosyn infusions to start after discharge-delayed discharge on Friday due to patient still not feeling well enough to be discharged but CM will arrange for home health to start on Fri-Friday instead. -US-guided PIV placed by IV team on 06/21 -should have once weekly CBC, CMP while on IV antibiotics -Blood cultures remain NGTD -add on scheduled docusate, prn Miralax for bowel regimen while on opioids (2) Atonic bladder: Plan: Severe, currently with trial of Medtronic bladder stimulator in place, surgically placed at [facility] on 06/11 Has follow-up planned for 06/25 for removal of trial stimulator-he called [facility] and convinced them to delay removal of the trial stimulator until beginning of July given ongoing treatment for current infection (3) Depression: Plan: Chronic. Well controlled on medication -Continue Duloxetine -add melatonin prn for insomnia Plan DVT Ppx - Lovenox Code - Full Dispo -continued stay on medical/surgical, but hopefully discharge to home tomorrow with IV antibiotics if blood cultures remain negative and feeling better Admission and Anticipated Discharge Date Admission Date: June 19, 2022 Subjective Pt still feeling wiped out today and not sleeping, poor appetite. Having pain in lower back from surgery and in lower abdomen, taking IV morphine. Is ambulating to the bathroom and back but no BM since admission. No CP, SOB. Does not feel ready to discharge yet. Review of Systems Review of Systems: All systems reviewed & are unremarkable except as noted in HPI & below Physical Exam Constitutional: WD/WN, vitals as above Eyes: + anicteric sclerae Neck: trachea midline, no thyromegaly Respiratory: normal respiratory effort, lungs clear to auscultation Cardiovascular: RRR, no murmur, no edema Chest (Breasts): Chest: normal inspection of chest Gastrointestinal (Abdomen): Inspection/Auscultation: + abdomen abnormal to inspection (SP catheter in place) Percussion/Palpation: + abdomen tender (mild TTP in suprapubic region w/o guarding or rebound) and abdomen soft Musculoskeletal: Extremities: extremities normal to inspection; no cyanosis and no clubbing Skin: multiple scabs on face Neurologic: moves all extremities and awake; no focal motor deficits Psychiatric: A+Ox3, euthymic affect Genitourinary: + external lesion (SP catheter site with pyogenic granuloma around catheter) Lymphatic: no lymphedema Results & Data Results & Data ([facility]) Vital Signs (Past 12 Hours) Vital Signs Temp Pulse Resp BP Pulse Ox O2 Del Method 06/21/22 07:47 36.9 C 62 16 126/84 97 Room Air Laboratory Results 06/21/22 06/21/22 Range/Units 07:27 07:27 WBC 8.61 (4.8-10.8) K/ul RBC 4.45 L (4.63-6.08) M/uL Hgb 14.4 (14.0-18.0) g/dl Hct 41.4 (40.1-51.0) % MCV 93.0 (80.0-100.0) fL MCH 32.4 (25.0-34.0) pg MCHC 34.8 (32.0-36.0) g/dL RDW Std Deviation 46.9 H (36.4-46.3) fL RDW Coeff of Mandie 13.8 (11.5-14.5) % Plt Count 236 (130-400) K/uL MPV 9.2 L (9.4-12.4) fL Immature Gran % (Auto) 0.3 % Neut % (Auto) 66.0 % Lymph % (Auto) 13.9 % [place] % (Auto) 13.1 % Eos % (Auto) 6.0 % Baso % (Auto) 0.7 % Neut # (Auto) 5.67 (1.4-6.5) K/uL Lymph # (Auto) 1.20 (1.2-3.4) K/uL [place] # (Auto) 1.13 H (0.24-0.82) K/uL Eos # (Auto) 0.52 H (0-0.50) K/uL Baso # (Auto) 0.06 (0-0.2) K/uL Immature Gran # (Auto) 0.03 H (0.00-0.02) K/uL Sodium 134 L (136-145) mmol/L Potassium 3.9 (3.5-5.1) mmol/L Chloride 103 (98-107) mmol/L Carbon Dioxide 24 (21-32) mmol/L Anion Gap 7 (3-11) BUN 11 (6-23) mg/dl Creatinine 0.82 (0.6-1.4) mg/dl Est Cr Clr Drug Dosing 101.6 ml/min Est GFR ( Amer) 103.1 ml/min Est GFR (Non-Af Amer) 89.0 ml/min BUN/Creatinine Ratio 13.4 (10-20) Glucose 99 (70-99(Fasting)) mg/dl Calcium 8.9 (8.5-10.1) mg/dl PG Care Time/CCT Total # of Minutes Spent Total Time Spent with Patient: Total time spent is greater than 50% in coordination of care (as documented) at patient's floor/unit and/or counseling patient: Coding Level of Care Code 52491 Subseq Hosp Care Lvl 2 Diagnoses Catheter-associated urinary tract infection T83.511A; N39.0 Encounter type: initial encounter Indwelling urinary catheter type: unspecified Atonic bladder N31.2 Depression F32.9 (1) Catheter-associated urinary tract infection Encounter type: initial encounter Indwelling urinary catheter type: unspecified Qualified Code(s): T83.511A - Infection and inflammatory reaction due to indwelling urethral catheter, initial encounter; N39.0 - Urinary tract infection, site not specified
[2022-06-21] MEDS: HYDROCODONE/ACETAMOPHEN 5/325MG TAB PO PRN ×3 (12:27→23:24)
[2022-06-21] MEDS: DOCUSATE SODIUM 100 MG CAP PO SCH ×2 (12:27→19:35)
[2022-06-22] MEDS: MoRPHine SULFATE 2 MG/ML CARP IV PRN ×2 (03:00→07:16)
[2022-06-22] MEDS: PIPERACILLIN/TAZOBACTAM 4.5 GM in DEXTROSE 5% 100 ML IV SCH (04:55)
[2022-06-22] MEDS: HYDROCODONE/ACETAMOPHEN 5/325MG TAB PO PRN ×2 (05:23→09:31)
[2022-06-22 07:47] LABS: Basophils # (auto) 0.06 K/uL (0-0.2); Basophils % (auto) 0.8 %; Eosinophils # (auto) 0.66 K/uL (0-0.50); Eosinophils % (auto) 8.9 %; Hematocrit (blood only) 40.9 % (40.1-51.0); Hemoglobin 14.2 g/dl (14.0-18.0); Immature Granulocytes # (auto) 0.03 K/uL (0.00-0.02); Immature Granulocytes % (auto) 0.4 %; Lymphocytes # (auto) 1.36 K/uL (1.2-3.4); Lymphocytes % (auto) 18.3 %; Mean Corpuscular Hemoglobin 32.6 pg (25.0-34.0); Mean Corpuscular Hgb Conc 34.7 g/dL (32.0-36.0); Mean Platelet Volume 9.2 fL (9.4-12.4); Monocytes % (auto) 12.1 %; Neutrophils # (auto) 4.41 K/uL (1.4-6.5); Neutrophils % (auto) 59.5 %; Platelet Count 239 K/uL (130-400); RDW Coefficient of Variation 13.8 % (11.5-14.5); RDW Standard Deviation 47.6 fL (36.4-46.3); Red Blood Count 4.35 M/uL (4.63-6.08); White Blood Count 7.42 K/ul (4.8-10.8)
[2022-06-22] MEDS: ENOXAPARIN INJ 40 MG/0.4 ML SYR SQ SCH (08:02)
[2022-06-22] MEDS: ASPIRIN 81 MG ECTAB PO SCH (08:03)
[2022-06-22] MEDS: DOCUSATE SODIUM 100 MG CAP PO SCH (08:03)
[2022-06-22] MEDS: DULoxetine HCL 60 MG CAP PO SCH (08:04)
[2022-06-22 08:27] LABS: Albumin Globulin Ratio 1.2 (0.9-2); Albumin Level 3.7 gm/dl (3.4-5.0); BUN Creatinine Ratio 13.3 (10-20); Bilirubin,Total 1.5 mg/dl (0.2-1.0); Creatinine Clr Calc Pharmacy 100.4 ml/min; Est GFR (African American) 102.6 ml/min; Est GFR (Non-African American) 88.5 ml/min; Potassium 3.8 mmol/L (3.5-5.1); Total Protein 6.7 gm/dl (6.0-8.3)
--- NOTE | 2022-07-01 10:17 | Discharge Summary ---
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 Cooper. Patient had a suprapubic catheter placed as well at [facility]. He reports that the site has never done well. He has a considerable amount of crusting and discharge. He has noted purulent urine over the last 11-12 days - described as frothy and opaque. Also with bladder pressure and difficulty passing urine over the last several days. He denies fever, chills, chest pain, cough, SOB, nausea, vomiting, diarrhea or constipation. Had UA performed which suggested infection. Culture with Pseudomonas - resistant to Cipro and Levaquin. In the ER he is afebrile, HD stable, NAD. Complaining of suprapubic pain, requesting medication. ER Course: Zosyn, Morphine, NSS Principal Diagnosis cathter associated UTI Discharge Exam Constitutional: WD/WN, vitals as above Eyes: + anicteric sclerae Neck: trachea midline, no thyromegaly Respiratory: normal respiratory effort, lungs clear to auscultation Cardiovascular: RRR, no murmur, no edema Chest (Breasts): Chest: normal inspection of chest Gastrointestinal (Abdomen): Inspection/Auscultation: + abdomen abnormal to inspection (SP catheter in place) Percussion/Palpation: + abdomen tender (mild TTP in suprapubic region w/o guarding or rebound) and abdomen soft Musculoskeletal: Extremities: extremities normal to inspection; no cyanosis and no clubbing Skin: multiple scabs on face Neurologic: moves all extremities and awake; no focal motor deficits Psychiatric: A+Ox3, euthymic affect Genitourinary: + external lesion (SP catheter site with pyogenic granuloma around catheter) Lymphatic: no lymphedema Discharge Data Allergies Allergy/AdvReac Type Severity Reaction Status Date / Time No Known Allergies Allergy Verified 06/26/22 13:26 Consultations 06/19/22 21:31 ED Decision to Admit Stat 06/20/22 01:39 Consult Urology Routine Hospital Course (1) Catheter-associated urinary tract infection: With suprapubic catheter in place x5 weeks, presents with almost 2 weeks of cloudy and infected appearing urine along with discomfort in the lower abdomen Growing Pseudomonas aeruginosa on multiple urine cultures over the last month, but most recently on 06/17 now resistant to fluoroquinolones No signs or symptoms of sepsis Continues to have some lower abd pains, poor appetite, fatigue Urine now appears clear and no longer looks infected -Continue Zosyn and recommend 10-day course of treatment-last dose will be end of day 06/29 -Appreciate urology-have asked them to exchange suprapubic catheter which was done on 06/20 -Urology consultation appreciated -change Bladder scan to scheduled qshift to see if having any retention since having bladder stimulator placed -Flush catheter as needed -Morphine PRN but will also add on po option of hydrocodone prn mod-severe pain, continue APAP po for mild pain -Case Man has arranged home IV Zosyn infusions to start after discharge -US-guided PIV placed by IV team on 06/21 -should have once weekly CBC, CMP while on IV antibiotics -Blood cultures remain NGTD - (2) Atonic bladder: Severe, currently with trial of Medtronic bladder stimulator in place, surgically placed at [facility] on 06/11 Has follow-up planned for 06/25 for removal of trial stimulator-he called [facility] and convinced them to delay removal of the trial stimulator until beginning of July given ongoing treatment for current infection (3) Depression: Chronic. Well controlled on medication -Continue Duloxetine -add melatonin prn for insomnia Total Time Total Time Spent Total Time Spent (In Minutes): 35 Discharge Plan Discharge Items Patient Disposition: Home - Home Health Services Reason For Visit: PSEUDOMONAL UTI Discharge Diagnosis: Catheter-associated UTI Condition on Discharge: Fair Activity: Resume your previous activity Non-emergency contact: Primary Care Provider and Urologist Call non-emergency contact if: you have any medication questions, your symptoms worsen, your pain is concerning for you and you have a fever Follow-up/Referrals: Genesis Sultana MD [Primary Care Provider] - 06/26/22 11:45 am Diet: Regular Addtl Attending Provider Instructions: Please finish out 8 more days of the IV Zosyn for your urinary tract infection. You will need to have blood work to include a CBC and CMP in 5 days with the results sent to your PCP for review. Please keep your follow up appointment with your Urologist at [facility] as planned. Pending Studies at Discharge: Yes Studies:: Final blood culture results-no growth to date Stand-Alone Forms: My [facility], Smoking Cessation Medications and DC Order Prescriptions: New hydrocodone-acetaminophen 5-325 mg Tablet 1 tab PO Q4H PRN (Reason: moderate-severe pain) Qty: 15 0RF Continued tramadol 50 mg tablet 50 mg PO HS PRN (Reason: pain) Qty: 30 0RF duloxetine 60 mg capsule,delayed release(DR/EC) 60 mg PO QAM Qty: 30 3RF Probiotic 10 billion cell capsule 1 cell PO QAM cholecalciferol (vitamin D3) 25 mcg (1,000 unit) capsule 1,000 unit PO QAM ascorbate calcium (vitamin C) 500 mg tablet 500 mg PO QAM vitamin E 200 unit capsule 200 units PO QAM vitamin B complex capsule 1 cap PO QAM multivitamin Tablet 1 tab PO QAM aspirin [Adult Low Dose Aspirin] 81 mg tablet,delayed release (DR/EC) 81 mg PO QAM omega 6-mkp-kjx-fish oil [Fish Oil] 1,000 mg (120 mg-180 mg) Capsule 1 cap PO QAM Discontinued levofloxacin 750 mg tablet 750 mg PO DAILY Qty: 10 0RF Discharge Orders: Discharge Order (Routine); Ordered 06/22/22 Ordered By: Donnell Holden Admission Data Admit Date/Time: 06/19/22 22:10 Attending Provider: Donnell Holden Admit Provider: Saba Oglesby Primary Care Provider: Genesis Sultana Other Providers: Saba Oglesby ; Jesus Ledesma ; [facility] Other Interventions: Discharge Summary Assessment (RN) Last Done: 06/22/22 10:26 Coding Level of Care Code D/C DAY MANAGEMENT >30 MINS Diagnoses Catheter-associated urinary tract infection T83.511A; N39.0 Encounter type: initial encounter Indwelling urinary catheter type: unspecified Atonic bladder N31.2 Depression F32.9
== END 2022-06-22 11:33 | disposition home health service (06) | DRG 699 ==
LOC: ED 18:35 → SUATTDRO 22:10 → 3W 22:10

== ENCOUNTER 2022-07-21 13:56 | Inpatient (IN) ==
--- NOTE | 2022-07-21 14:05 | Emergency Department Note ---
Impression & Plan Complicated urinary tract infection, Suprapubic catheter, Abdominal pain ED Provider Note NAME: LORAINE GALEAS AGE: 71 SEX: M : 1950 ARRIVES VIA: Walk-In INFORMANT: Patient, ED PROVIDER(S): Brian Cooper MD Chief Complaint: Lower abdominal pain and pressure HPI: Patient presents with the above symptoms and states that his discomfort and pressure is gotten progressively worse of the last 3 days and believes he has had decreased urine output from his suprapubic catheter. The patient did have it placed in March of this past year and does follow with [facility] as well as Dr. Silva. Patient states that he was admitted back in May for complicated UTI that did require antibiotics. The patient denies any fevers chills flank pain or back pain. Patient has not done anything with regard to the patient's pain or symptoms. Patient denies any chest pains or shortness of breath. Patient did have his catheter replaced approximate 1 month prior. No additional exacerbating remitting factors. ROS: See HPI for pertinent positives and negatives. A total of 10 systems were reviewed and otherwise negative. Past medical history: See below Surgical history: See below Social history: See below Physical Exam: GENERAL: NAD, wearing a mask, non-toxic. EYE EXAM: Normal conjunctiva. PERRL, no anisocoria and EOM's grossly intact w/o pain. NECK: Supple, no nuchal rigidity, no adenopathy, non-tender. No signs of meningismus. FROM of the neck with good chin to chest and neck extension. No stridor. LUNGS: Clear to auscultation. Normal chest wall mechanics. HEART: NSR, no MRG. ABDOMEN: Abdomen soft, lower abdominal discomfort, most prominent in the mid lower abdomen, suprapubic catheter in place, normo-active bowel sounds, no masses, no rebound or guarding. BACK: No CVA TTP. SKIN: No rashes and no bruising. UPPER EXTREMITIES: Upper extremities are grossly normal. LOWER EXTREMITIES: Grossly normal, no edema. NEURO EXAM: A&O x3, cranial nerves II-XII grossly intact, normal speech, moves all 4 extremities. Differential diagnoses: Appendicitis, testicular torsion, infections, diverticulitis, UTI, obstruction, mesenteric ischemia, aortic pathology, inflammatory bowel disease, renal colic, PUD, pancreatitis, biliary pathology, hernia, volvulus, constipation, as well as other pathologies. Course: Patient was seen and evaluated the bedside. Full history physical exam was performed. Imaging Studies: See Below Cardiac monitoring: An order was placed for continuous cardiac monitoring. The monitor shows a rate of 79 with sinus rhythm. MDM: Patient was seen due to concern for lower abdominal pain and possible catheter obstruction. Catheter was attempted to be replaced and blood work was obtained along with urinalysis. I discussed with the patient that at the patient's blood work looked concerning or he did not have improvement in his discomfort we would obtain a CAT scan of the abdomen pelvis. Patient understood. He also stated that the pain was not relieved with replacement of the suprapubic catheter that a medication would be ordered. Patient is in agreement with this plan of care. Patient was able to drain 400 cc off the catheter and did not have significant retention the patient still complained of pain so CT abdomen pelvis ordered. I did have pharmacy look through the patient's prior urine cultures and the patient has had Pseudomonas that is resistant to p.o. antibiotics and cefepime was ordered. Patient was ordered pain medication. Patient has a normal white count H&H and platelet count. The patient's kidney function is unremarkable with normal electrolytes. Urinalysis does show likely infection. COVID-negative. CT abdomen pelvis shows bladder wall thickening no evidence of obstruction and no hydronephrosis. There is a subcutaneous fluid collection near the umbilicus which is likely a postoperative seroma. Given the patient's prior resistance and complicated UTI do believe the patient does benefit from admission and IV antibiotics. I did speak with Jt Brooks PA-C and Dr. Pascual. The patient was admitted to the medicine service Past Med/Surg History Medical History Asthma Basal cell carcinoma of back Bladder outlet obstruction Bladder wall thickening BPH (benign prostatic hyperplasia) Chronic back pain Hepatic steatosis History of COVID-19 Dx 09/2020 > symptoms at time of: fatigue, loss of taste and smell > resolved Hyperglycemia Incarcerated ventral hernia Obesity Suprapubic catheter Urethral stricture Urinary retention Surgical History H/O dilation of urethra x3 H/O ventral hernia repair (04/10/22) Robotic Laparoscopic Ventral Hernia Repair with Mesh, Transabdominal pre peritoneal - John Perez, DO, FACS History of basal cell carcinoma (BCC) excision (05/28/22) FINAL DIAGNOSIS Skin, left back (punch biopsy): - A micronodular and macronodular basal cell carcinoma is seen. - This basal cell carcinoma extends to the edges of the punch biopsy specimen. - A conservative reexcision of this site to obtain negative surgical margins is suggested. History of cystoscopy irect Visual Internal Urethrotomy History of surgery suprapubic cath placed [place] [facility] [place] History of ureter repair STRICTURE Hx of biopsy 10/29/2021: lesion on his back punch biopsy Dr. Perez in office Hx of biopsy Back Mass Wide Local Excision (11/20/21): Grade view 2, MAC#3, ETT 7.5 at [facility] [place]P tonsillectomy Family History Mother Alcohol abuse Bone cancer Dementia Breast cancer She age 85 Uterine cancer Brother Alcohol abuse Brother Depression - suicide. Father Dementia Began after open heart surgery age 89. Still living as of 10/2019. born 1923 Heart disease valvular Other No family history of adverse response to anesthesia Social History Smoking Status: Never smoker Age Started Using Tobacco: 21; Age Quit Using Tobacco: 26; Second Hand Exposure: No; Hx Alcohol Use: Yes Alcohol type: wine Alcohol Intake Frequency: 4 or More x per/Week Hx Substance Use: No Preferred Language: Maltese Communication Ability: Effective Visual Impairment: No Limitations Hearing Ability: Normal Flooring Installer Required: No Beliefs That Will Affect Care: None marital status: Current Living Situation: Spouse Current Living Situation Comment: current occupational status: retired How many Children do You have: 1 Feels Safe at Home: Yes Childhood Exposure to Second-Hand Smoke: Yes caffeine: Yes Dental Care, Regularly: Yes Physical Activity Frequency: 3-4 Times per Week Physical Activity Frequency Comment: walk Seatbelt Use: always Sunscreen Use: Yes Do you think of yourself as: straight/heterosexual Assistive Devices: None Allergies Allergies Allergy/AdvReac Type Severity Reaction Status Date / Time No Known Allergies Allergy Verified 07/21/22 15:00 Home Meds Home Medications Medication Instructions Recorded Confirmed ascorbate calcium (vitamin C) 500 500 mg PO QAM 03/22/19 07/21/22 mg tablet vitamin B complex 1 cap PO QAM 03/22/19 07/21/22 Lactobacillus acidophilus 10 1 cell PO QAM 11/09/19 07/21/22 billion cell capsule (Probiotic) multivitamin 1 tab PO QAM 10/15/20 07/21/22 aspirin 81 mg tablet,delayed 81 mg PO QAM 07/11/21 07/21/22 release (Adult Low Dose Aspirin) cholecalciferol (vitamin D3) 25 1,000 unit PO QAM 10/16/21 07/21/22 mcg (1,000 unit) capsule omega 5-squ-nii-fish oil 1,000 mg 1 cap PO QAM 06/19/22 07/21/22 (120 mg-180 mg) capsule (Fish Oil) vitamin E (dl, acetate) 90 mg (200 90 mg PO DAILY 07/21/22 07/21/22 unit) capsule Previous Rx's Medication Instructions Recorded duloxetine 60 mg capsule,delayed 60 mg PO QAM #30 caps 05/22/22 release hydrocodone 5 mg-acetaminophen 325 1 tab PO Q4H PRN moderate-severe 06/22/22 mg tablet pain #15 tabs tramadol 50 mg tablet 50 mg PO HS PRN pain #30 tabs 07/18/22 Results & Data (ED) Vital Signs Vital Signs - 24 hr 07/21/22 14:01 07/21/22 15:13 07/21/22 16:43 Temperature 36.5 C Temperature Source Oral Pulse Rate 73 Pulse Rate [Finger] 73 78 Respiratory Rate 18 18 18 Respiratory Effort / Characteristics Non-Labored Spontaneous Non-Labored Spontaneous Non-Labored Respiratory Depth Normal Normal Normal Respiratory Pattern Regular Blood Pressure 148/92 H Blood Pressure [Right Arm] 143/92 H 143/91 H Blood Pressure Mean 110 Blood Pressure Mean [Right Arm] 109 108 Pulse Oximetry 99 99 100 Oxygen Delivery Method Room Air Room Air Room Air Sepsis Recent Fever Within 48 Hours No Sepsis New/Unexplained Change in Mental Status No Sepsis Action Taken by Nursing No Action Required Home Medications Current Medication List: was personally reviewed by me Laboratory Data Attestation: I reviewed the patient's lab results. Result diagrams: 07/21/22 14:29 07/21/22 14:29 Lab Results 07/21/22 07/21/22 07/21/22 Range/Units 14:29 14:29 14:49 WBC 10.42 (4.8-10.8) K/ul RBC 4.64 (4.63-6.08) M/uL Hgb 15.2 (14.0-18.0) g/dl Hct 44.2 (40.1-51.0) % MCV 95.3 (80.0-100.0) fL MCH 32.8 (25.0-34.0) pg MCHC 34.4 (32.0-36.0) g/dL RDW Std Deviation 48.3 H (36.4-46.3) fL RDW Coeff of Mandie 13.8 (11.5-14.5) % Plt Count 241 (130-400) K/uL MPV 9.0 L (9.4-12.4) fL Immature Gran % (Auto) 0.4 % Neut % (Auto) 64.4 % Lymph % (Auto) 18.5 % Defiance % (Auto) 9.4 % Eos % (Auto) 6.4 % Baso % (Auto) 0.9 % Neut # (Auto) 6.71 H (1.4-6.5) K/uL Lymph # (Auto) 1.93 (1.2-3.4) K/uL Defiance # (Auto) 0.98 H (0.24-0.82) K/uL Eos # (Auto) 0.67 H (0-0.50) K/uL Baso # (Auto) 0.09 (0-0.2) K/uL Immature Gran # (Auto) 0.04 H (0.00-0.02) K/uL Sodium 135 L (136-145) mmol/L Potassium 4.5 (3.5-5.1) mmol/L Chloride 102 (98-107) mmol/L Carbon Dioxide 22 (21-32) mmol/L Anion Gap 11 (3-11) BUN 12 (6-23) mg/dl Creatinine 0.82 (0.6-1.4) mg/dl Est Cr Clr Drug Dosing 106.0 ml/min Est GFR ( Amer) 103.1 ml/min Est GFR (Non-Af Amer) 89.0 ml/min BUN/Creatinine Ratio 14.6 (10-20) Glucose 77 (70-99(Fasting)) mg/dl Calcium 9.7 (8.5-10.1) mg/dl Total Bilirubin 0.9 (0.2-1.0) mg/dl AST 38 (13-39) U/L ALT 34 (7-52) U/L Alkaline Phosphatase 96 (34-104) U/L Total Protein 7.9 (6.0-8.3) gm/dl Albumin 4.5 (3.4-5.0) gm/dl Globulin 3.4 (2.5-4.0) gm/dl Albumin/Globulin Ratio 1.3 (0.9-2) Lipase 16 (11-82) U/L Urine Color Yellow Urine Appearance Turbid A (Clear) Urine pH 5.5 (4.5-7.5) Ur Specific Minerva 1.013 (1.000-1.030) Urine Protein 2+ H (Negative) Urine Glucose (UA) Negative (Negative) Urine Ketones Negative (Negative) Urine Blood 3+ H (Negative) Urine Nitrite Positive A (Negative) Urine Bilirubin Negative (Negative) Urine Urobilinogen Negative (Negative) Ur Leukocyte Esterase 3+ H (Negative) Urine WBC (Auto) >30 H (0-5) /hpf Urine RBC (Auto) 10-30 H (0-4) /hpf U Hyaline Cast (Auto) 1-5 (0-5) /lpf U Epithel Cells (Auto) 20-30 H (0-5) /lpf Urine Bacteria (Auto) 1+ H (Negative) Urine Yeast Not Reportable SARS-CoV-2, RNA, NAAT (NEGATIVE) 07/21/22 Range/Units 17:24 WBC (4.8-10.8) K/ul RBC (4.63-6.08) M/uL Hgb (14.0-18.0) g/dl Hct (40.1-51.0) % MCV (80.0-100.0) fL MCH (25.0-34.0) pg MCHC (32.0-36.0) g/dL RDW Std Deviation (36.4-46.3) fL RDW Coeff of Mandie (11.5-14.5) % Plt Count (130-400) K/uL MPV (9.4-12.4) fL Immature Gran % (Auto) % Neut % (Auto) % Lymph % (Auto) % Defiance % (Auto) % Eos % (Auto) % Baso % (Auto) % Neut # (Auto) (1.4-6.5) K/uL Lymph # (Auto) (1.2-3.4) K/uL Def[place] # (Auto) (0.24-0.82) K/uL Eos # (Auto) (0-0.50) K/uL Baso # (Auto) (0-0.2) K/uL Immature Gran # (Auto) (0.00-0.02) K/uL Sodium (136-145) mmol/L Potassium (3.5-5.1) mmol/L Chloride (98-107) mmol/L Carbon Dioxide (21-32) mmol/L Anion Gap (3-11) BUN (6-23) mg/dl Creatinine (0.6-1.4) mg/dl Est Cr Clr Drug Dosing ml/min Est GFR ( Amer) ml/min Est GFR (Non-Af Amer) ml/min BUN/Creatinine Ratio (10-20) Glucose (70-99(Fasting)) mg/dl Calcium (8.5-10.1) mg/dl Total Bilirubin (0.2-1.0) mg/dl AST (13-39) U/L ALT (7-52) U/L Alkaline Phosphatase (34-104) U/L Total Protein (6.0-8.3) gm/dl Albumin (3.4-5.0) gm/dl Globulin (2.5-4.0) gm/dl Albumin/Globulin Ratio (0.9-2) Lipase (11-82) U/L Urine Color Urine Appearance (Clear) Urine pH (4.5-7.5) Ur Specific Minerva (1.000-1.030) Urine Protein (Negative) Urine Glucose (UA) (Negative) Urine Ketones (Negative) Urine Blood (Negative) Urine Nitrite (Negative) Urine Bilirubin (Negative) Urine Urobilinogen (Negative) Ur Leukocyte Esterase (Negative) Urine WBC (Auto) (0-5) /hpf Urine RBC (Auto) (0-4) /hpf U Hyaline Cast (Auto) (0-5) /lpf U Epithel Cells (Auto) (0-5) /lpf Urine Bacteria (Auto) (Negative) Urine Yeast SARS-CoV-2, RNA, NAAT NEGATIVE (NEGATIVE) Administered Medications Morphine Sulfate (Morphine Sulfate 2 Mg/Ml Carp) 1 mg IV Q4H PRN PRN Reason: Pain (4,5,6+) Stop: 08/04/22 17:16 Last Admin: 07/21/22 17:34 Dose: 1 mg Documented By: MARGAUX Discontinued Medications Cefepime HCl (Maxipime) 2,000 mg in 20 mls @ 5 mls/min IV NOW STA; Protocol Stop: 07/21/22 16:28 Last Admin: 07/21/22 16:40 Dose: 5 mls/min Documented By: MARGAUX Ioversol (Optiray 350 100ml) 94 ml IV ONCE ONE Stop: 07/21/22 16:10 Last Admin: 07/21/22 16:09 Dose: 94 ml Documented By: HUEK Morphine Sulfate (Morphine Sulfate 4 Mg/Ml 1 Ml Carp\Vial) 4 mg IV NOW STA Stop: 07/21/22 15:03 Last Admin: 07/21/22 15:13 Dose: 4 mg Documented By: MARGAUX Imaging Data Radiologist's Impression: Abdomen/Pelvis CT 07/21/22 15:[address] WITH IV CONTRAST CT DOSE: 1162.15 mGy.cm HISTORY: lower ab pain, suprapubic TECHNIQUE: Multiaxial CT images of the abdomen and pelvis were performed following the use of intravenous contrast. A dose lowering technique was utilized adhering to the principles of ALARA. COMPARISON STUDY: Abdomen and pelvis CT 04/02/2022. FINDINGS: The lung bases are clear. No pneumoperitoneum. No pneumatosis. No acute fractures within the visualized osseous structures. Status post mesh repair. Focal hernia. There is a 5.4 x 4.0 cm loculated that contains fluid collection at the umbilicus. This slightly protrudes beyond the skin surface. This favors a postoperative seroma. Secondary infection would be considered less likely but difficult to exclude by imaging. The liver, gallbladder, pancreas, spleen, and adrenal glands unremarkable. The main portal vein is patent. Mild to moderate calcified plaque within the mildly ectatic abdominal aorta. No evidence for an aortic aneurysm. Stable 1 cm hypodense lesion within the right kidney. This likely represents a cyst. Normal left kidney. No ureteral stones. No hydronephrosis. No retroperitoneal lymphadenopathy. No pelvic free fluid. There is severe bladder wall thickening. This has progressed. A suprapubic catheter appears in good position. Small focus of gas within the bladder lumen may be due to the prior catheterization. Colonic diverticulosis. No evidence for acute diverticulitis. No bowel wall thickening or obstruction. Normal appendix. IMPRESSION: 1. Marked bladder wall thickening. This is slightly progressed in the interval. This could be chronic or represent a cystitis. Recommend correlation with urinalysis. 2. No bowel wall thickening or obstruction. 3. No hydronephrosis. 4. Interval mesh repair of an umbilical hernia. There is a 5.4 x 4.0 cm subcutaneous fluid collection at the umbilicus which is new from the prior study. This favors a postoperative seroma. Secondary infection would be d ifficult to exclude by imaging but considered less likely. ACT 112: Negative or not required by law. Electronically signed by: Huber De La Paz M.D. 07/21/2022 4:23 PM Discharge Plan Visit Data Chief Complaint: Urinary Symptoms Stated Complaint: ABD PAIN, UNABLE TO VOID ED Provider: Brian Cooper Discharge Problem: Complicated urinary tract infection, Suprapubic catheter, Abdominal pain Patient Disposition: Admitted As Inpatient Forms Stand Alone Forms: [facility] Prescriptions Prescriptions: No Action tramadol 50 mg tablet 50 mg PO HS PRN (Reason: pain) Qty: 30 0RF duloxetine 60 mg capsule,delayed release(DR/EC) 60 mg PO QAM Qty: 30 3RF Probiotic 10 billion cell capsule 1 cell PO QAM cholecalciferol (vitamin D3) 25 mcg (1,000 unit) capsule 1,000 unit PO QAM ascorbate calcium (vitamin C) 500 mg tablet 500 mg PO QAM vitamin B complex capsule 1 cap PO QAM multivitamin Tablet 1 tab PO QAM aspirin [Adult Low Dose Aspirin] 81 mg tablet,delayed release (DR/EC) 81 mg PO QAM omega 8-owt-ker-fish oil [Fish Oil] 1,000 mg (120 mg-180 mg) Capsule 1 cap PO QAM hydrocodone-acetaminophen 5-325 mg Tablet 1 tab PO Q4H PRN (Reason: moderate-severe pain) Qty: 15 0RF vitamin E (dl, acetate) 90 mg (200 unit) Capsule 90 mg PO DAILY Referrals Referrals: PCP,NO [Physician] -
[2022-07-21 14:39] LABS: Basophils # (auto) 0.09 K/uL (0-0.2); Basophils % (auto) 0.9 %; Eosinophils # (auto) 0.67 K/uL (0-0.50); Eosinophils % (auto) 6.4 %; Hematocrit (blood only) 44.2 % (40.1-51.0); Hemoglobin 15.2 g/dl (14.0-18.0); Immature Granulocytes # (auto) 0.04 K/uL (0.00-0.02); Immature Granulocytes % (auto) 0.4 %; Lymphocytes # (auto) 1.93 K/uL (1.2-3.4); Lymphocytes % (auto) 18.5 %; Mean Corpuscular Hemoglobin 32.8 pg (25.0-34.0); Mean Corpuscular Hgb Conc 34.4 g/dL (32.0-36.0); Mean Corpuscular Volume 95.3 fL (80.0-100.0); Monocytes # (auto) 0.98 K/uL (0.24-0.82); Monocytes % (auto) 9.4 %; Neutrophils # (auto) 6.71 K/uL (1.4-6.5); Neutrophils % (auto) 64.4 %; Platelet Count 241 K/uL (130-400); RDW Coefficient of Variation 13.8 % (11.5-14.5); RDW Standard Deviation 48.3 fL (36.4-46.3); Red Blood Count 4.64 M/uL (4.63-6.08); White Blood Count 10.42 K/ul (4.8-10.8)
[2022-07-21] MEDS ORDERED: MoRPHine SULFATE 4 MG/ML 1 ML CARP\\VIAL IV STA (15:02)
[2022-07-21 15:13] LABS: Albumin Globulin Ratio 1.3 (0.9-2); Albumin Level 4.5 gm/dl (3.4-5.0); BUN Creatinine Ratio 14.6 (10-20); Bilirubin,Total 0.9 mg/dl (0.2-1.0); Calcium 9.7 mg/dl (8.5-10.1); Est GFR (African American) 103.1 ml/min; Globulin 3.4 gm/dl (2.5-4.0); Potassium 4.5 mmol/L (3.5-5.1); Total Protein 7.9 gm/dl (6.0-8.3)
[2022-07-21 15:17] LABS: Appearance Urine Turbid (Clear); Bacteria Urine Automated 1+ (Negative); Bilirubin Urine Negative (Negative); Blood Urine 3+ (Negative); Color Urine Yellow; Epithelial Cell Urine Auto 20-30 /lpf (0-5); Glucose Urine UA Negative (Negative); Ketones Urine Negative (Negative); Leukocyte Esterase Urine 3+ (Negative); Nitrite Urine Positive (Negative); Protein Urine 2+ (Negative); Specific Gravity Urine 1.013 (1.000-1.030); Urobilinogen Urine Negative (Negative); WBC Urine Automated >30 /hpf (0-5); pH Urine 5.5 (4.5-7.5)
[2022-07-21] MEDS ORDERED: OPTIRAY 350 100ml IV ONE (16:09)
[2022-07-21] MEDS ORDERED: CEFEPIME 2,000 MG/20 ML VIAL IV STA (16:25)
--- NOTE | 2022-07-21 16:25 | CT Scan Report ---
ABDOMEN AND PELVIS CT WITH IV CONTRAST CT DOSE: 1162.15 mGy.cm HISTORY: lower ab pain, suprapubic TECHNIQUE: Multiaxial CT images of the abdomen and pelvis were performed following the use of intrave nous contrast. A dose lowering technique was utilized adhering to the principles of ALARA. COMPARISON STUDY: Abdomen and pelvis CT 04/02/2022. FINDINGS: The lung bases are clear. No pneumoperitoneum. No pneumatosis. No acute fractures within th e visualized osseous structures. Status post mesh repair. Focal hernia. There is a 5.4 x 4.0 cm locul ated that contains fluid collection at the umbilicus. This slightly protrudes beyond the skin surface . This favors a postoperative seroma. Secondary infection would be considered less likely but difficu lt to exclude by imaging. The liver, gallbladder, pancreas, spleen, and adrenal glands unremarkable. The main portal vein is patent. Mild to moderate calcified plaque within the mildly ectatic abdominal aorta. No evidence for an aortic aneurysm. Stable 1 cm hypodense lesion within the right kidney. Thi s likely represents a cyst. Normal left kidney. No ureteral stones. No hydronephrosis. No retroperito sanchez lymphadenopathy. No pelvic free fluid. There is severe bladder wall thickening. This has progres sed. A suprapubic catheter appears in good position. Small focus of gas within the bladder lumen may be due to the prior catheterization. Colonic diverticulosis. No evidence for acute diverticulitis. No bowel wall thickening or obstruction. Normal appendix. IMPRESSION: 1. Marked bladder wall thickening. This is slightly progressed in the interval. This could be chronic or represent a cystitis. Recommend correlation with urinalysis. 2. No bowel wall thickening or obstruction. 3. No hydronephrosis. 4. Interval mesh repair of an umbilical hernia. There is a 5.4 x 4.0 cm subcutaneous fluid collection at the umbilicus which is new from the prior study. This favors a postoperative seroma. Secondary in fection would be difficult to exclude by imaging but considered less likely. ACT 112: Negative or not required by law. Electronically signed by: Huber De La Paz M.D. 07/21/2022 4:23 PM
--- NOTE | 2022-07-21 16:54 | History & Physical Report ---
Date of Service July 21, 2022 Assessment & Plan (1) Catheter-associated urinary tract infection: Plan: -Admit to med/surge -Patient is currently afebrile, hemodynamically stable, and stable on RA resistant to Fluoroquinolones. Patient was treated with Zosyn for a total of 10 days -Will switch to Cefepime for now as Zosyn may not have full treated his infection last time. Urology consult placed to help determine if he needs a catheter replacement and/or other procedure to successfully treat his infection -Urine and blood cultures obtained, follow results and sensitivities -Will start Detrol for bladder spasm pain, tylenol for mild pain and IV morphine for severe pain -AM CBC and BMP (2) H/O ventral hernia repair: Plan: -Patient is S/P robotic Jasvir incarcerated ventral hernia repair with mesh with Dr. Perez on 04/10/22 -Noted to have previous small seroma at the surgical site -CT of the A/P today showing a 5.4 x 4.0 cm subcutaneous fluid collection at the umbilicus which is new from the prior study. Results are likely showing a post- operative seroma but abscess cannot be excluded at this time -Patient is non-tender over the are so less concerned for a seroma at this time -Will consult Dr. Layton to assess the surgical site and determine if any procedures need to be done. (3) Depression: Plan: -Continue Duloxetine Plan The patient was seen with and discussed with Dr. Pascual at the time of the admission History of Present Illness Chief Complaint: Urinary symptoms Primary Care Provider: Sravanthi Moncada PA-C Pablo is a 71 year old male with a PMH significant for atonic bladder with current supra-pubic cath in place, recurrent Pseudomonal UTI's last in 06/2022 now resistant to fluoroquinolones, basal cell carcinoma S/P resection on 05/28/22,alcohol dependence, depression, and obesity who presented to the [facility] ED on 07/21/22 due to concerns for possible malfunctioning suprapubic weinstein catheter. In the ED the patient was found to be afebrile, hemodynamically stable, and stable on RA. Labs were remarkable for WBC WNlL, stable Hgb and platelets, absolute neutrophils of 6.71, stable renal function, and electrolytes, Liver function WNL, UA obtained from his weinstein catheter was noted to be Turbid, 3+ blood, Nitrite positive, 3+ leukocyte esterase, WBC > 30, and urine bacteria. CT of the abdomen and pelvis with IV contrast showed "Marked bladder wall thickening. This is slightly progressed in the interval. This could be chronic or represent a cystitis. Recommend correlation with urinalysis. 2. No bowel wall thickening or obstruction. 3. No hydronephrosis. 4. Interval mesh repair of an umbilical hernia. There is a 5.4 x 4.0 cm subcutaneous fluid collection at the umbilicus which is new from the prior study. This favors a postoperative seroma. Secondary infection would be difficult to exclude by imaging but considered less likely." Prior to admission the patient was given one dose of cefepime and 4mg IV morphine. At the time of the exam the patient was resting comfortably in bed in no acute distress. He states that he is frustrated to hear that he likely has a recurrent UTI as he was just admitted here last month for the same issue. He states that when he finished the home IV antibiotics for his last Pseudomonal UTI he feels as though it was not fully treated. He continues to have pain/pressure/discomfort over his bladder and at the suprapubic catheter site. He states that each morning there are blood clots and he also has pus at the catheter insertion site. He denies recent fevers and chills, chest pain, SOB, nausea, vomiting, diarrhea, melena and recent falls. We spoke about the fluid collection noted on CT at his previous hernia repair site. The patient had the procedure with Dr. Perez in General Surgery who he enjoys very much. He states that Dr. Perez was previously aware of the seroma but it appears as though it has increased in size and changed locations. The patient denies any pain at the location of the fluid collection, he just notes that it is firm. He previously had the bladder stimulator placed at [facility] and has been very unhappy with their care; he would like to transfer care back to [facility]. I spoke to him regarding code status, the patient is a full code and his would make decisions for him if he could not make them himself. PLease refer to Dr. Pascual's attestation for any changes to the treatment plan Allergies Allergy/AdvReac Type Severity Reaction Status Date / Time No Known Allergies Allergy Verified 07/21/22 15:00 Home Medications Medication Instructions Recorded Confirmed Type ascorbate calcium (vitamin C) 500 500 mg PO QAM 03/22/19 07/21/22 History mg tablet vitamin B complex 1 cap PO QAM 03/22/19 07/21/22 History Lactobacillus acidophilus 10 1 cell PO QAM 11/09/19 07/21/22 History billion cell capsule (Probiotic) multivitamin 1 tab PO QAM 10/15/20 07/21/22 History aspirin 81 mg tablet,delayed 81 mg PO QAM 07/11/21 07/21/22 History release (Adult Low Dose Aspirin) cholecalciferol (vitamin D3) 25 1,000 unit PO QAM 10/16/21 07/21/22 History mcg (1,000 unit) capsule duloxetine 60 mg capsule,delayed 60 mg PO QAM #30 caps 05/22/22 07/21/22 Rx release omega 6-uhx-pri-fish oil 1,000 mg 1 cap PO QAM 06/19/22 07/21/22 History (120 mg-180 mg) capsule (Fish Oil) hydrocodone 5 mg-acetaminophen 325 1 tab PO Q4H PRN moderate-severe 06/22/22 07/21/22 Rx mg tablet pain #15 tabs tramadol 50 mg tablet 50 mg PO HS PRN pain #30 tabs 07/18/22 07/21/22 Rx vitamin E (dl, acetate) 90 mg (200 90 mg PO DAILY 07/21/22 07/21/22 History unit) capsule Past Med/Surg History Medical History Asthma Basal cell carcinoma of back Bladder outlet obstruction Bladder wall thickening BPH (benign prostatic hyperplasia) Chronic back pain Hepatic steatosis History of COVID-19 Dx 09/2020 > symptoms at time of: fatigue, loss of taste and smell > resolved Hyperglycemia Incarcerated ventral hernia Obesity Suprapubic catheter Urethral stricture Urinary retention Surgical History H/O dilation of urethra x3 H/O ventral hernia repair (04/10/22) Robotic Laparoscopic Ventral Hernia Repair with Mesh, Transabdominal pre peritoneal - John Perez, DO, FACS History of basal cell carcinoma (BCC) excision (05/28/22) FINAL DIAGNOSIS Skin, left back (punch biopsy): - A micronodular and macronodular basal cell carcinoma is seen. - This basal cell carcinoma extends to the edges of the punch biopsy specimen. - A conservative reexcision of this site to obtain negative surgical margins is suggested. History of cystoscopy irect Visual Internal Urethrotomy History of surgery suprapubic cath placed @ [facility] [place] History of ureter repair STRICTURE Hx of biopsy 10/29/2021: lesion on his back punch biopsy Dr. Perez in office Hx of biopsy Back Mass Wide Local Excision (11/20/21): Grade view 2, MAC#3, ETT 7.5 at [facility] S/P tonsillectomy Family History Mother Alcohol abuse Bone cancer Dementia Breast cancer She age 85 Uterine cancer Brother Alcohol abuse Brother Depression - suicide. Father Dementia Began after open heart surgery age 89. Still living as of 10/2019. born 1923 Heart disease valvular Other No family history of adverse response to anesthesia Social History Smoking Status: Never smoker Age Started Using Tobacco: 21; Age Quit Using Tobacco: 26; Second Hand Exposure: No; Hx Alcohol Use: Yes Alcohol type: wine Alcohol Intake Frequency: 4 or More x per/Week Hx Substance Use: No Preferred Language: Korean Communication Ability: Effective Visual Impairment: No Limitations Hearing Ability: Normal Fisheries Inspector Required: No Beliefs That Will Affect Care: None marital status: Current Living Situation: Spouse Current Living Situation Comment: current occupational status: retired How many Children do You have: 1 Feels Safe at Home: Yes Childhood Exposure to Second-Hand Smoke: Yes caffeine: Yes Dental Care, Regularly: Yes Physical Activity Frequency: 3-4 Times per Week Physical Activity Frequency Comment: walk Seatbelt Use: always Sunscreen Use: Yes Do you think of yourself as: straight/heterosexual Assistive Devices: None Review of Systems Review of Systems: Denies current fever, chills, headache, changes in vision, hearing, taste, and smell, chest pain, SOB, cough, nausea, vomiting, diarrhea, hematemesis, melena, and recent falls. All systems have been reviewed and are otherwise negative. Physical Exam Physical Exam: Physical Exam: General: In no acute distress, stated age, well-nourished, good hygiene, non- toxic appearing HEENT: Normocephalic, atraumatic, no scleral icterus, pupils around round, symmetrical, and reactive to light, moist mucus membranes, trachea midline, no thyromegaly Chest/Pulm: No respiratory distress, symmetrical chest expansion, clear breath sounds throughout Cardiac: RRR, no murmurs noted Abdomen: patient with firm area of skin located just inferior to the umbilicus, the are is without signs of infection and non-tender to palpation, patient with suprapubic catheter in place, pus noted at the insertion site, no blood noted at this time, the suprapubic region is tender to palpation, Negative for ascites and bruising, normoactive bowel sounds, soft, non-tender to palpation throughout the rest of the patient's abdomen Musculoskeletal: Symmetrical and without signs of acute trauma, upper and lower extremities with full ROM, no atrophy, spasticity, or flaccidity Extremities: Radial, dorsalis pedis, and posterior tibial pulses are intact and symmetrical, no edema noted in the BL LE's Skin: Warm, dry, no rashes , lesions, or scars noted Neuro: Alert and oriented to person, place, month, year, and president, no focal defects, CN II-XII tested and intact, finger to nose test negative, no tremors noted Psych: No acute distress, calm and cooperative during the exam Results & Data Results & Data ([facility]) Vital Signs (Past 12 Hours) Vital Signs Temp Pulse Pulse Resp BP BP Pulse Ox 07/21/22 15:13 73 18 143/92 H 99 07/21/22 14:01 36.5 C 73 18 148/92 H 99 O2 Del Method 07/21/22 15:13 Room Air 07/21/22 14:01 Room Air Laboratory Results Abnormal lab results 07/21/22 07/21/22 07/21/22 Range/Units 14:29 14:29 14:49 RDW Std Deviation 48.3 H (36.4-46.3) fL MPV 9.0 L (9.4-12.4) fL Neut # (Auto) 6.71 H (1.4-6.5) K/uL Meagher # (Auto) 0.98 H (0.24-0.82) K/uL Eos # (Auto) 0.67 H (0-0.50) K/uL Immature Gran # (Auto) 0.04 H (0.00-0.02) K/uL Sodium 135 L (136-145) mmol/L Urine Appearance Turbid A (Clear) Urine Protein 2+ H (Negative) Urine Blood 3+ H (Negative) Urine Nitrite Positive A (Negative) Ur Leukocyte Esterase 3+ H (Negative) Urine WBC (Auto) >30 H (0-5) /hpf Urine RBC (Auto) 10-30 H (0-4) /hpf U Epithel Cells (Auto) 20-30 H (0-5) /lpf Urine Bacteria (Auto) 1+ H (Negative) Diagnostic Findings Abdomen/Pelvis CT 07/21/22 15:[address] WITH IV CONTRAST CT DOSE: 1162.15 mGy.cm HISTORY: lower ab pain, suprapubic TECHNIQUE: Multiaxial CT images of the abdomen and pelvis were performed following the use of intravenous contrast. A dose lowering technique was utilized adhering to the principles of ALARA. COMPARISON STUDY: Abdomen and pelvis CT 04/02/2022. FINDINGS: The lung bases are clear. No pneumoperitoneum. No pneumatosis. No acute fractures within the visualized osseous structures. Status post mesh repair. Focal hernia. There is a 5.4 x 4.0 cm loculated that contains fluid collection at the umbilicus. This slightly protrudes beyond the skin surface. This favors a postoperative seroma. Secondary infection would be considered less likely but difficult to exclude by imaging. The liver, gallbladder, pancreas, spleen, and adrenal glands unremarkable. The main portal vein is patent. Mild to moderate calcified plaque within the mildly ectatic abdominal aorta. No evidence for an aortic aneurysm. Stable 1 cm hypodense lesion within the right kidney. This likely represents a cyst. Normal left kidney. No ureteral stones. No hydronephrosis. No retroperitoneal lymphadenopathy. No pelvic free fluid. There is severe bladder wall thickening. This has progressed. A suprapubic catheter appears in good position. Small focus of gas within the bladder lumen may be due to the prior catheterization. Colonic diverticulosis. No evidence for acute diverticulitis. No bowel wall thickening or obstruction. Normal appendix. IMPRESSION: 1. Marked bladder wall thickening. This is slightly progressed in the interval. This could be chronic or represent a cystitis. Recommend correlation with urinalysis. 2. No bowel wall thickening or obstruction. 3. No hydronephrosis. 4. Interval mesh repair of an umbilical hernia. There is a 5.4 x 4.0 cm subcutaneous fluid collection at the umbilicus which is new from the prior study. This favors a postoperative seroma. Secondary infection would be difficult to exclude by imaging but considered less likely. ACT 112: Negative or not required by law. Electronically signed by: Huber De La Paz M.D. 07/21/2022 4:23 PM ECG Additional Comments: No ECG noted at the time of the admission Code Status & VTE Plan Code Status Full code VTE Prophylaxis Plan VTE Prophylaxis will be ordered: Yes Supervising Physician Co-Signing Physician Notes Patient seen and examined, chart reviewed, case discussed with Jt Brooks PA-C and I agree with the assessment and plan as above except as otherwise noted Labs and images reviewed Pablo is seen at the bedside. Reports he has had significant difficulties with his catheter and exchange, and is somewhat frustrated by the recurrence of his infection. Also notes that the swelling under his bellybutton is not painful or warm, but has become concerning to him and would like it dealt with. No fever/chills at the bedside. No chest pain/shortness of breath at the bedside. At bedside to review catheter is with surrounding purulent drainage and sediment in the Weinstein bag. Palpable around 4-5 cm nontender masses felt in the infraumbilical region. Agree with treatment of Pseudomonas infection as noted above. Recommend catheter exchange, urology has been consulted. Suspect patient's infraumbilical mass is a seroma in the setting of hernia repair, would defer intervention/drainage until suprapubic infection has been appropriately managed to prevent seeding but surgery consulted for arrangement of potential sterile drainage/management as able. Agree with management above. PG Care Time/CCT Total # of Minutes Spent Total Time Spent with Patient: Total time spent is greater than 50% in coordination of care (as documented) at patient's floor/unit and/or counseling patient: [place] [address] Initial Inpt Care Lvl 3 Patient Type Established Medical Decision Making High Complexity Diagnoses Catheter-associated urinary tract infection T83.511A; N39.0 Encounter type: initial encounter Indwelling urinary catheter type: unspecified H/O ventral hernia repair Z98.890; Z87.19 Depression F32.9 (1) Catheter-associated urinary tract infection Encounter type: initial encounter Indwelling urinary catheter type: unspecified Qualified Code(s): T83.511A - Infection and inflammatory reaction due to indwelling urethral catheter, initial encounter; N39.0 - Urinary tract infection, site not specified
[2022-07-21] MEDS: MoRPHine SULFATE 2 MG/ML CARP IV PRN ×2 (17:34→20:57)
[2022-07-21] MEDS: TOLTERODINE TARTRATE 2 MG TAB PO SCH (18:00)
[2022-07-21] MEDS ORDERED: MoRPHine SULFATE 2 MG/ML CARP IV STA ×2 (19:23→21:32)
--- NOTE | 2022-07-21 19:37 | Urology Consultation ---
Date of Consultation July 21, 2022 Assessment & Plan (1) Complicated urinary tract infection: Patient has been admitted on the hospitalist service. From a urology perspective we recommend the following: Continue antibiotics in form of cefepime as this will provide pseudomonal coverage. Urine culture can be followed and his antibiotics can be tailored based on the results of this Would recommend placing patient's suprapubic catheter to gravity drainage in order to adequately and persistently drain any infected urine Once the patient has received several days of intravenous antibiotics consideration can be given to changing his suprapubic catheter. It would be ideal to attempt to sterilize his urine before placing a new suprapubic catheter. Continue analgesics We will add Pyridium as patient is experiencing bladder discomfort and this may be bladder spasm due to underlying urinary tract infection Additional recommendations be forthcoming based on his clinical course as it unfolds History of Present Illness Reason for Consultation: Recurrent urinary tract infection with suprapubic catheter in place Attending Physician: Anup Pascual MD History of Present Illness This is a 71-year-old male who has a history of urethroplasty in . The patient also has a history of urinary retention for which she had a bladder stimulator placed at [facility] in June 2022. During this visit the patient also had a suprapubic catheter placed. The patient was instructed on how to His suprapubic catheter as well as had a drain and he has been doing so since it has been placed. The patient presented [facility] emergency department as he notes for approximately 3 days he has noted decreased urine output as well as suprapubic discomfort. He denies any nausea or vomiting. He denies any fevers, shakes, or chills. Patient notes that he usually uncapped his suprapubic catheter and drained urine and he has noted a decreased amount compared to what he is usually present. There is no other mention that the patient has a history of pseudomonal urinary tract infection in June 2022 which was resistant to quinolones. He does note that the suprapubic catheter has been in place since his visit at [facility] but has been exchanged on 1 occasion in June 2022 at [facility]. Since arrival to [facility] the patient has had labs and imaging which independent reviewed. A CT scan of the abdomen pelvis showed marked bladder wall thickening this felt to represent cystitis. Labs include a CBC her white blood cell count, hemoglobin, hematocrit, and platelet count were normal. Chemistry profile showed sodium is 135 with a normal potassium, normal BUN, normal creatinine. Urinalysis showed turbid urine with positive nitrites and 3+ leukocyte Estrace. He was noted to have greater than 30 white blood cells per high-power field as well as 1+ bacteria on the study. A COVID test was negative. I discussed with the nurse in the emergency department the patient's Patel catheter was flushed and irrigated easily. The amount of fluid that was instilled in the bladder was easily returned according to the nurse. Proximally 1 hour after this modality bladder scan showed only approximate 150 cc of residual urine. Due to concern for recurrent pseudomonal urinary tract infection he has been placed on cefepime. At the time of my interview he was resting comfortably in bed in no distress. Allergies Allergy/AdvReac Type Severity Reaction Status Date / Time No Known Allergies Allergy Verified 07/21/22 15:00 Home Medications Medication Instructions Recorded Confirmed Type ascorbate calcium (vitamin C) 500 500 mg PO QAM 03/22/19 07/21/22 History mg tablet vitamin B complex 1 cap PO QAM 03/22/19 07/21/22 History Lactobacillus acidophilus 10 1 cell PO QAM 11/09/19 07/21/22 History billion cell capsule (Probiotic) multivitamin 1 tab PO QAM 10/15/20 07/21/22 History aspirin 81 mg tablet,delayed 81 mg PO QAM 07/11/21 07/21/22 History release (Adult Low Dose Aspirin) cholecalciferol (vitamin D3) 25 1,000 unit PO QAM 10/16/21 07/21/22 History mcg (1,000 unit) capsule duloxetine 60 mg capsule,delayed 60 mg PO QAM #30 caps 05/22/22 07/21/22 Rx release omega 4-jlb-yuk-fish oil 1,000 mg 1 cap PO QAM 06/19/22 07/21/22 History (120 mg-180 mg) capsule (Fish Oil) hydrocodone 5 mg-acetaminophen 325 1 tab PO Q4H PRN moderate-severe 06/22/22 07/21/22 Rx mg tablet pain #15 tabs tramadol 50 mg tablet 50 mg PO HS PRN pain #30 tabs 07/18/22 07/21/22 Rx vitamin E (dl, acetate) 90 mg (200 90 mg PO DAILY 07/21/22 07/21/22 History unit) capsule Patient History Medical History Asthma Basal cell carcinoma of back Bladder outlet obstruction Bladder wall thickening BPH (benign prostatic hyperplasia) Chronic back pain Hepatic steatosis History of COVID-19 Dx 09/2020 > symptoms at time of: fatigue, loss of taste and smell > resolved Hyperglycemia Incarcerated ventral hernia Obesity Suprapubic catheter Urethral stricture Urinary retention Surgical History H/O dilation of urethra x3 H/O ventral hernia repair (04/10/22) Robotic Laparoscopic Ventral Hernia Repair with Mesh, Transabdominal pre peritoneal - John Perez, DO, FACS History of basal cell carcinoma (BCC) excision (05/28/22) FINAL DIAGNOSIS Skin, left back (punch biopsy): - A micronodular and macronodular basal cell carcinoma is seen. - This basal cell carcinoma extends to the edges of the punch biopsy specimen. - A conservative reexcision of this site to obtain negative surgical margins is suggested. History of cystoscopy irect Visual Internal Urethrotomy History of [place] [facility] [place] of ureter repair STRICTURE Hx of biopsy 10/29/2021: lesion on his back punch biopsy Dr. Perez in office Hx of biopsy Back Mass Wide Local Excision (11/20/21): Grade view 2, MAC#3, ETT 7.5 at [facility] [place] S/P tonsillectomy Family History Mother Alcohol abuse Bone cancer Dementia Breast cancer She age 85 Uterine cancer Brother Alcohol abuse Brother Depression - suicide. Father Dementia Began after open heart surgery age 89. Still living as of 10/2019. 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 Beliefs That Will Affect Care: None marital status: Current Living Situation: Spouse Current Living Situation Comment: current occupational status: retired How many Children do You have: 1 Feels Safe at Home: Yes Childhood Exposure to Second-Hand Smoke: Yes caffeine: Yes Dental Care, Regularly: Yes Physical Activity Frequency: 3-4 Times per Week Physical Activity Frequency Comment: walk Seatbelt Use: always Sunscreen Use: Yes Do you think of yourself as: straight/heterosexual Assistive Devices: None Review of Systems Constitutional: no fever and no chills Eyes: no eye pain Ear, Nose, Mouth, Throat: no ear pain Respiratory: no cough and no dyspnea Cardiovascular: no chest pain Gastrointestinal: + abdominal pain (Suprapubic discomfort); no nausea and no vomiting Genitourinary: + as per Subjective / HPI Musculoskeletal: no back pain Integumentary: no rash Neurologic: no localized weakness Physical Exam Constitutional: WD/WN, vitals as above Eyes: no conjunctival abnormality ENMT: Ears: no hearing impairment Mouth: no oropharynx abnormality Neck: trachea midline Respiratory: normal respiratory effort; no respiratory distress and no labored breathing Cardiovascular: Rate/Rhythm: regular rate and regular rhythm Gastrointestinal (Abdomen): Soft, nonrigid, nondistended. There is some slight discomfort with palpation of the suprapubic area. Suprapubic catheter is in place and is currently capped. There is minimal surrounding erythema at the patient's catheter insertion site. There is a small amount of purulent drainage near the catheter site. Musculoskeletal: No calf tenderness Skin: no rashes Neurologic: moves all extremities Psychiatric: A+Ox3, euthymic affect Results & Data ([facility]) Vital Signs (Past 12 Hours) Vital Signs Temp Pulse Pulse Resp BP BP Pulse Ox 07/21/22 16:43 78 18 143/91 H 100 07/21/22 15:13 73 18 143/92 H 99 07/21/22 14:01 36.5 C 73 18 148/92 H 99 O2 Del Method 07/21/22 16:43 Room Air 07/21/22 15:13 Room Air 07/21/22 14:01 Room Air PG Care Time/CCT Total # of Minutes Spent Total Time Spent with Patient: Total time spent is greater than 50% in coordination of care (as documented) at patient's floor/unit and/or counseling patient: Coding Level of Care Code 20605 Inpt Consult Level 5 Diagnoses Complicated urinary tract infection N39.0
--- NOTE | 2022-07-21 19:58 | Surgery Consultation ---
Date of Consultation July 21, 2022 Assessment & Plan (1) Seroma: The patient is being admitted to the hospital due to complicated urinary tract infection. For details concerning this please see the urology consultation as well as plan by the admitting service. From general surgery perspective concerning his seroma we recommend the following: As the patient does not have leukocytosis, tachycardia, or fever coupled with the fact that the lump in his abdomen is not warm or red is suggestive that this is merely a seroma or hematoma and not an abscess. It is unlikely that this is an expanding hematoma as the patient has not had a significant drop in his hemoglobin and hematocrit Would recommend monitoring this clinically for signs of enlargement. If significant enlargement is noted further measures can be taken. Additional recommendations be forthcoming based on his clinical course as it unfolds History of Present Illness Reason for Consultation: Postoperative seroma Attending Physician: Anup Pascual MD History of Present Illness This is a 71-year-old male who presented to [facility] to decreased urine output from his suprapubic catheter. He is being admitted to the hospital due to a complicated urinary tract infection. For more details concerning this please see the urology consultation as well as the admitting history and physical by the primary service. This patient did have a history of an incarcerated ventral hernia and on 04/10/2022 the patient underwent a robotic assisted laparoscopic ventral hernia pair with mesh by Dr. Perez. The patient was discharged home the same day as his procedure. The patient has followed up with Dr. Perez since his procedure on 04/30/2022 and 05/28/2022. During these visits the patient was noted to have a lump in his abdomen that was felt to either represent a hematoma or a seroma. Patient was again seen by Dr. Perez on 06/06/2022 and no concerns were raised concerning this lump at this time. Today in the emergency department the patient does note that he continues to have this reported lump in his abdomen and he feels that it may have increased in size over the past several days. He has not had any abdominal pain other than suprapubic discomfort associated with his urinary tract infection. He denies any fevers, shakes, or chills. He denies any nausea or vomiting. He denies any erythema, warmth, or redness of the lump in his abdomen. Today in the emergency department the patient was noted to be hemodynamically stable without hypotension, tachycardia, or fever. A CT scan of the abdomen pelvis was performed that showed patient had an interval mesh repair of an umbilical hernia. He had a 5.4 x 4 cm subcutaneous fluid collection near the umbilicus. The interpreting radiologist favored a seroma. Labs include a CBC her white blood cell count, hemoglobin, hematocrit, and platelet count were normal. Chemistry profile showed sodium was 135. Potassium, BUN, and creatinine were normal. Urinalysis was concerning for urinary tract infection. A COVID test was negative. At the time of interview the patient was not in any distress. Allergies Allergy/AdvReac Type Severity Reaction Status Date / Time No Known Allergies Allergy Verified 07/21/22 15:00 Home Medications Medication Instructions Recorded Confirmed Type ascorbate calcium (vitamin C) 500 500 mg PO QAM 03/22/19 07/21/22 History mg tablet vitamin B complex 1 cap PO QAM 03/22/19 07/21/22 History Lactobacillus acidophilus 10 1 cell PO QAM 11/09/19 07/21/22 History billion cell capsule (Probiotic) multivitamin 1 tab PO QAM 10/15/20 07/21/22 History aspirin 81 mg tablet,delayed 81 mg PO QAM 07/11/21 07/21/22 History release (Adult Low Dose Aspirin) cholecalciferol (vitamin D3) 25 1,000 unit PO QAM 10/16/21 07/21/22 History mcg (1,000 unit) capsule duloxetine 60 mg capsule,delayed 60 mg PO QAM #30 caps 05/22/22 07/21/22 Rx release omega 3-tmt-jji-fish oil 1,000 mg 1 cap PO QAM 06/19/22 07/21/22 History (120 mg-180 mg) capsule (Fish Oil) hydrocodone 5 mg-acetaminophen 325 1 tab PO Q4H PRN moderate-severe 06/22/22 07/21/22 Rx mg tablet pain #15 tabs tramadol 50 mg tablet 50 mg PO HS PRN pain #30 tabs 07/18/22 07/21/22 Rx vitamin E (dl, acetate) 90 mg (200 90 mg PO DAILY 07/21/22 07/21/22 History unit) capsule Patient History Medical History Asthma Basal cell carcinoma of back Bladder outlet obstruction Bladder wall thickening BPH (benign prostatic hyperplasia) Chronic back pain Hepatic steatosis History of COVID-19 Dx 09/2020 > symptoms at time of: fatigue, loss of taste and smell > resolved Hyperglycemia Incarcerated ventral hernia Obesity Suprapubic catheter Urethral stricture Urinary retention Surgical History H/O dilation of urethra x3 H/O ventral hernia repair (04/10/22) Robotic Laparoscopic Ventral Hernia Repair with Mesh, Transabdominal pre peritoneal - John Perez, DO, FACS History of basal cell carcinoma (BCC) excision (05/28/22) FINAL DIAGNOSIS Skin, left back (punch biopsy): - A micronodular and macronodular basal cell carcinoma is seen. - This basal cell carcinoma extends to the edges of the punch biopsy specimen. - A conservative reexcision of this site to obtain negative surgical margins is suggested. History of cystoscopy irect Visual Internal Urethrotomy History of surgery suprapubic cath placed @ [facility] [place] History of ureter repair STRICTURE Hx of biopsy 10/29/2021: lesion on his back punch biopsy Dr. Perez in office Hx of biopsy Back Mass Wide Local Excision (11/20/21): Grade view 2, MAC#3, ETT 7.5 at [facility] [place] S/P tonsillectomy Family History Mother Alcohol abuse Bone cancer Dementia Breast cancer She age 85 Uterine cancer Brother Alcohol abuse Brother Depression - suicide. Father Dementia Began after open heart surgery age 89. Still living as of 10/2019. born 1923 Heart disease valvular Other No family history of adverse response to anesthesia Social History Smoking Status: Never smoker Age Started Using Tobacco: 21; Age Quit Using Tobacco: 26; Second Hand Exposure: No; Hx Alcohol Use: Yes Alcohol type: wine Alcohol Intake Frequency: 4 or More x per/Week Hx Substance Use: No Preferred Language: [place] Communication Ability: Effective Visual Impairment: No Limitations Hearing Ability: Normal Housing Relocation Required: No Beliefs That Will Affect Care: None marital status: Current Living Situation: Spouse Current Living Situation Comment: current occupational status: retired How many Children do You have: 1 Feels Safe at Home: Yes Childhood Exposure to Second-Hand Smoke: Yes caffeine: Yes Dental Care, Regularly: Yes Physical Activity Frequency: 3-4 Times per Week Physical Activity Frequency Comment: walk Seatbelt Use: always Sunscreen Use: Yes Do you think of yourself as: straight/heterosexual Assistive Devices: None Review of Systems Constitutional: no fever and no chills Eyes: no eye pain Ear, Nose, Mouth, Throat: no ear pain Respiratory: no cough and no dyspnea Cardiovascular: no chest pain Gastrointestinal: + abdominal pain (Suprapubic discomfort); no nausea and no vomiting Genitourinary: + as per Subjective / HPI Musculoskeletal: no back pain Integumentary: no rash Neurologic: no localized weakness Physical Exam Constitutional: WD/WN, vitals as above Eyes: no conjunctival abnormality ENMT: Ears: no hearing impairment and no external ear abnormality Mouth: no oropharynx abnormality Neck: trachea midline Respiratory: normal respiratory effort; no respiratory distress and no labored breathing Cardiovascular: Rate/Rhythm: regular rate and regular rhythm Gastrointestinal (Abdomen): Abdomen is soft, nonrigid, nondistended, nontender to palpation. There is no rebound tenderness or guarding. The patient had a lump approximately 3 to 4 cm x 3 to 4 cm in size near his umbilicus. The area is nontender to palpation. The area is not indurated. The area is not fluctuant. There is no crepitus in the soft tissue. There is no surrounding erythema. The area is not warm. Musculoskeletal: No calf tenderness Skin: no rashes Neurologic: moves all extremities Psychiatric: A+Ox3, euthymic affect Results & Data ([facility]) Vital Signs (Past 12 Hours) Vital Signs Temp Pulse Pulse Resp BP BP Pulse Ox 07/21/22 19:45 75 16 136/93 99 07/21/22 16:43 78 18 143/91 H 100 07/21/22 15:13 73 18 143/92 H 99 07/21/22 14:01 36.5 C 73 18 148/92 H 99 O2 Del Method 07/21/22 19:45 07/21/22 16:43 Room Air 07/21/22 15:13 Room Air 07/21/22 14:01 Room Air PG Care Time/CCT Total # of Minutes Spent Total Time Spent with Patient: Total time spent is greater than 50% in coordination of care (as documented) at patient's floor/unit and/or counseling patient: Coding Level of Care Code 48008 Inpt Consult Level 5 Diagnoses Seroma
[2022-07-22] MEDS: MoRPHine SULFATE 2 MG/ML CARP IV PRN ×3 (01:32→09:19)
[2022-07-22] MEDS: CEFEPIME 2,000 MG in SYRINGE 0 ML IV SCH ×2 (05:44→17:01)
[2022-07-22] MEDS: ASPIRIN 81 MG ECTAB PO SCH (07:59)
[2022-07-22] MEDS: MULTIVITAMIN TAB PO SCH (07:59)
[2022-07-22] MEDS: CHOLECALCIFEROL 1,000 UNITS 25 MCG TAB PO SCH (07:59)
[2022-07-22] MEDS: TOLTERODINE TARTRATE 2 MG TAB PO SCH ×2 (07:59→20:30)
[2022-07-22] MEDS: VITAMIN B COMPLEX TAB PO SCH (08:00)
[2022-07-22] MEDS: ASCORBIC ACID 500 MG TAB PO SCH (08:00)
[2022-07-22] MEDS: TOCOPHERYL, DL-ALPHA 100 UNITS CAP PO SCH (08:00)
[2022-07-22] MEDS: DULoxetine HCL 60 MG CAP PO SCH (08:00)
[2022-07-22] MEDS: ADVANCED PROBIOTIC 1250 MG CAPSULE PO SCH (08:00)
[2022-07-22] MEDS: OMEGA-3 (PURIFIED FISH OIL) 1 GM CAP PO SCH (08:00)
[2022-07-22] MEDS: PHENAZOPYRIDINE HCL 100 MG TAB PO PRN (08:01)
--- NOTE | 2022-07-22 08:14 | Hospitalist Progress Note ---
Date of Service July 22, 2022 Assessment & Plan (1) Catheter-associated urinary tract infection: Plan: Prior UTI last month (when he had his catheter exchanged last) with pseudomonas UTI resistant to quinolones and tx w/ Zosyn and sent w/ IV for total 10 days in June. Patient w/ history of atonic bladder -- prior to current events over past year, patient w/ reported markedly distended bladder with estimated volume 3900cc in June 2021 Patient w/ Interstim implantation 06/11/22 however had fulminant UTI w/ purulent urine req hospitalization last month/IV abx and extended trial for [address], removed on 07/02 CTAP on admit w/ marked bladder wall thickening, slightly progressed in interval, chronic vs cystitis UA 3+ blood, +nitrite, 3+ leuk esterase, >30 WBC, 10-30 RBC, 20-30 epi, 1+ bacteria Urine cx pending --> gram negative bacilli on preliminary -- monitor final cx/sensitivity Cefepime on admit, continued No blood cultures drawn on admit -- added for this morning -- mindful he got 2 doses IV cefepime thus far prior to blood cultures Urology consulted -- timing for catheter exchange to be determined Antispasmodics prn Pain control -- morphine 1mg not effective control, 2mg took edge off but not completely--> discussed 2mg/4mg based on pain scale. Also ordered bowel regimen given no BM reported/gas, however does have abdominal sounds on exam kidney function remains stable Inquired to urology about intravesicular abx for patient given recurrence/resistance --> urology rec patient have outpatient ID follow up Messaged Dr Ordonez from [facility] ID connect this morning, consult placed for recs given recurrence Asked CM to help w/ arranging ID outpatient follow up Continued inpatient stay (2) H/O ventral hernia repair: Plan: Patient is S/P robotic Jasvir incarcerated ventral hernia repair with mesh with Dr. Perez on 04/10/22 , previously noted small seroma at surgical site CTAP on admission w/ 5.4 x 4 cm subcutaneous fluid collection at umbilicus new from prior study (noted prior study was before repair), abscess cannot be excluded --> patient noted that he believes this is getting larger in size General surgery consulted -- per note, clinically much smaller than it was just a few months ago, no evidence for infection (3) Depression: Plan: Continue Duloxetine Does have increased depression/frustrations regarding catheter/infections Consider adding lexapro or similar if any continued ongoing issues but would want to hold off starting given interactions w/ abx currently (4) Basal cell carcinoma: Plan: hx recurrent basal cell carcinoma (recent and in the past) -- s/p excisional biopsy recently w/ Dr Perez path w/ extension to the margins --> outpatient f/u for excision of basal cell carcinoma on his back Recommend having CM assist with getting patient follow up outpatient with DERMATOLOGY -- has seen Dr Mohamud in past for ulcerated lesion to L anterior chest, currently w/ one to back Rare cases of metastasis malignant melanoma to bladder have been reported, however no pelvic lymphadenopathy seen on imaging Plan continued inpatient stay monitor urine cx/sensitivities catheter exchange per urology ID consult pending, CM to assist w/ ID outpatient follow up given recurrent infections increased pain control/bowel regimen Admission and Anticipated Discharge Date Admission Date: July 21, 2022 Subjective eval this morning, increased lower abdominal/suprapubic pain in site of catheter increased morphine and got 2mg dose but states only taking the edge off will increased further and add bowel regimen, no BM. +BS but not passing much gas. Typically does not have issue with moving his bowels, but discussed increasing bowel regimen w/ pain control. got dose of pyridium and catheter draining orange urine, states never had spasm before but got one after the dose of pyridium. discussed abx intravesicular and to discuss with urology, has not been seen yet this morning. catheter does have purulent drainage around site. does have umbilical hernia, told was seroma/post-op findings and ok, but does believe this has increased in size. Nontender on exam, but is about the size of a golfball. Discussed if any increased pain/warmth please alert as cannot r/o abscess. No fever/chills. He states he presents as soon as any symptoms, had a fever a year or two ago, but doesn't typically get a fever with infection anymore. No chest pain/shortness of breath. Previously cared for by Dr Mensah, discussed if here later in week would love to have her caring for him. Messaged urology about timing to exchange catheter-- [employer] states few days abx but will clarify with Urologist on timing. Questions/concerns addressed at this time. Review of Systems Review of Systems: All systems reviewed & are unremarkable except as noted in HPI & below Physical Exam Physical Exam: General WD male sitting up in bed, NAD but does appear minimally uncomfortable HEENT: head normocephalic, atraumatic, pupils equal, mmm trachea midline Resp: CTAB, diminished in the bases, no w/c/r, on room air CV: RRR, no m/r/g, no pitting edema/calf tenderness GI: +distended, +BS throughout, suprapubic discomfort on palpation, no guarding/rigidity, +umbilical hernia, about the size of a golf ball, non- reducible, non-painful/erythematous : suprapubic catheter with purulent drainage around catheter site, catheter draining orange urine with sediment MSK/Neuro: moves all extremities, no focal deficit Psych: AOX3, cooperative and pleasant with care, frustrated about having another urinary infection Results & Data Results & Data ([facility]) Vital Signs (Past 12 Hours) Vital Signs Temp Pulse Resp BP Pulse Ox O2 Del Method 07/21/22 22:50 36.7 C 67 17 148/98 H 95 Room Air 07/21/22 20:57 37.1 C 75 18 159/90 H 97 Room Air Laboratory Results 07/21/22 07/21/22 07/21/22 Range/Units 17:24 14:49 14:29 WBC (4.8-10.8) K/ul RBC (4.63-6.08) M/uL Hgb (14.0-18.0) g/dl Hct (40.1-51.0) % MCV (80.0-100.0) fL MCH (25.0-34.0) pg MCHC (32.0-36.0) g/dL RDW Std Deviation (36.4-46.3) fL RDW Coeff of Mandie (11.5-14.5) % Plt Count (130-400) K/uL MPV (9.4-12.4) fL Immature Gran % (Auto) % Neut % (Auto) % Lymph % (Auto) % [place] % (Auto) % Eos % (Auto) % Baso % (Auto) % Neut # (Auto) (1.4-6.5) K/uL Lymph # (Auto) (1.2-3.4) K/uL [place] # (Auto) (0.24-0.82) K/uL Eos # (Auto) (0-0.50) K/uL Baso # (Auto) (0-0.2) K/uL Immature Gran # (Auto) (0.00-0.02) K/uL Sodium 135 L (136-145) mmol/L Potassium 4.5 (3.5-5.1) mmol/L Chloride 102 (98-107) mmol/L Carbon Dioxide 22 (21-32) mmol/L Anion Gap 11 (3-11) BUN 12 (6-23) mg/dl Creatinine 0.82 (0.6-1.4) mg/dl Est Cr Clr Drug Dosing 106.0 ml/min Est GFR ( Amer) 103.1 ml/min Est GFR (Non-Af Amer) 89.0 ml/min BUN/Creatinine Ratio 14.6 (10-20) Glucose 77 (70-99(Fasting)) mg/dl Calcium 9.7 (8.5-10.1) mg/dl Total Bilirubin 0.9 (0.2-1.0) mg/dl AST 38 (13-39) U/L ALT 34 (7-52) U/L Alkaline Phosphatase 96 (34-104) U/L Total Protein 7.9 (6.0-8.3) gm/dl Albumin 4.5 (3.4-5.0) gm/dl Globulin 3.4 (2.5-4.0) gm/dl Albumin/Globulin Ratio 1.3 (0.9-2) Lipase 16 (11-82) U/L Urine Color Yellow Urine Appearance Turbid A (Clear) Urine pH 5.5 (4.5-7.5) Ur Specific Hosmer 1.013 (1.000-1.030) Urine Protein 2+ H (Negative) Urine Glucose (UA) Negative (Negative) Urine Ketones Negative (Negative) Urine Blood 3+ H (Negative) Urine Nitrite Positive A (Negative) Urine Bilirubin Negative (Negative) Urine Urobilinogen Negative (Negative) Ur Leukocyte Esterase 3+ H (Negative) Urine WBC (Auto) >30 H (0-5) /hpf Urine RBC (Auto) 10-30 H (0-4) /hpf U Hyaline Cast (Auto) 1-5 (0-5) /lpf U Epithel Cells (Auto) 20-30 H (0-5) /lpf Urine Bacteria (Auto) 1+ H (Negative) Urine Yeast Not Reportable SARS-CoV-2, RNA, NAAT NEGATIVE (NEGATIVE) 07/21/22 Range/Units 14:29 WBC 10.42 (4.8-10.8) K/ul RBC 4.64 (4.63-6.08) M/uL Hgb 15.2 (14.0-18.0) g/dl Hct 44.2 (40.1-51.0) % MCV 95.3 (80.0-100.0) fL MCH 32.8 (25.0-34.0) pg MCHC 34.4 (32.0-36.0) g/dL RDW Std Deviation 48.3 H (36.4-46.3) fL RDW Coeff of Mandie 13.8 (11.5-14.5) % Plt Count 241 (130-400) K/uL MPV 9.0 L (9.4-12.4) fL Immature Gran % (Auto) 0.4 % Neut % (Auto) 64.4 % Lymph % (Auto) 18.5 % [place] % (Auto) 9.4 % Eos % (Auto) 6.4 % Baso % (Auto) 0.9 % Neut # (Auto) 6.71 H (1.4-6.5) K/uL Lymph # (Auto) 1.93 (1.2-3.4) K/uL [place] # (Auto) 0.98 H (0.24-0.82) K/uL Eos # (Auto) 0.67 H (0-0.50) K/uL Baso # (Auto) 0.09 (0-0.2) K/uL Immature Gran # (Auto) 0.04 H (0.00-0.02) K/uL Sodium (136-145) mmol/L Potassium (3.5-5.1) mmol/L Chloride (98-107) mmol/L Carbon Dioxide (21-32) mmol/L Anion Gap (3-11) BUN (6-23) mg/dl Creatinine (0.6-1.4) mg/dl Est Cr Clr Drug Dosing ml/min Est GFR ( Amer) ml/min Est GFR (Non-Af Amer) ml/min BUN/Creatinine Ratio (10-20) Glucose (70-99(Fasting)) mg/dl Calcium (8.5-10.1) mg/dl Total Bilirubin (0.2-1.0) mg/dl AST (13-39) U/L ALT (7-52) U/L Alkaline Phosphatase (34-104) U/L Total Protein (6.0-8.3) gm/dl Albumin (3.4-5.0) gm/dl Globulin (2.5-4.0) gm/dl Albumin/Globulin Ratio (0.9-2) Lipase (11-82) U/L Urine Color Urine Appearance (Clear) Urine pH (4.5-7.5) Ur Specific Hosmer (1.000-1.030) Urine Protein (Negative) Urine Glucose (UA) (Negative) Urine Ketones (Negative) Urine Blood (Negative) Urine Nitrite (Negative) Urine Bilirubin (Negative) Urine Urobilinogen (Negative) Ur Leukocyte Esterase (Negative) Urine WBC (Auto) (0-5) /hpf Urine RBC (Auto) (0-4) /hpf U Hyaline Cast (Auto) (0-5) /lpf U Epithel Cells (Auto) (0-5) /lpf Urine Bacteria (Auto) (Negative) Urine Yeast SARS-CoV-2, RNA, NAAT (NEGATIVE) Diagnostic Findings Abdomen/Pelvis CT 07/21/22 15:[address] WITH IV CONTRAST CT DOSE: 1162.15 mGy.cm HISTORY: lower ab pain, suprapubic TECHNIQUE: Multiaxial CT images of the abdomen and pelvis were performed following the use of intravenous contrast. A dose lowering technique was utilized adhering to the principles of ALARA. COMPARISON STUDY: Abdomen and pelvis CT 04/02/2022. FINDINGS: The lung bases are clear. No pneumoperitoneum. No pneumatosis. No acute fractures within the visualized osseous structures. Status post mesh repair. Focal hernia. There is a 5.4 x 4.0 cm loculated that contains fluid collection at the umbilicus. This slightly protrudes beyond the skin surface. This favors a postoperative seroma. Secondary infection would be considered less likely but difficult to exclude by imaging. The liver, gallbladder, pancreas, spleen, and adrenal glands unremarkable. The main portal vein is patent. Mild to moderate calcified plaque within the mildly ectatic abdominal aorta. No evidence for an aortic aneurysm. Stable 1 cm hypodense lesion within the right kidney. This likely represents a cyst. Normal left kidney. No ureteral stones. No hydronephrosis. No retroperitoneal lymphadenopathy. No pelvic free fluid. There is severe bladder wall thickening. This has progressed. A suprapubic catheter appears in good position. Small focus of gas within the bladder lumen may be due to the prior catheterization. Colonic diverticulosis. No evidence for acute diverticulitis. No bowel wall thickening or obstruction. Normal appendix. IMPRESSION: 1. Marked bladder wall thickening. This is slightly progressed in the interval. This could be chronic or represent a cystitis. Recommend correlation with urinalysis. 2. No bowel wall thickening or obstruction. 3. No hydronephrosis. 4. Interval mesh repair of an umbilical hernia. There is a 5.4 x 4.0 cm subcutaneous fluid collection at the umbilicus which is new from the prior study. This favors a postoperative seroma. Secondary infection would be difficult to exclude by imaging but considered less likely. ACT 112: Negative or not required by law. Electronically signed by: Huber De La Paz M.D. 07/21/2022 4:23 PM PG Care Time/CCT Total # of Minutes Spent Total Time Spent with Patient: Total time spent is greater than 50% in coordination of care (as documented) at patient's floor/unit and/or counseling patient: Coding Level of Care Code 97913 Subseq Hosp Care Lvl 3 Diagnoses Catheter-associated urinary tract infection T83.511A; N39.0 Encounter type: initial encounter Indwelling urinary catheter type: unspecified H/O ventral hernia repair Z98.890; Z87.19 Depression F32.9 Basal cell carcinoma C44.91 (1) Catheter-associated urinary tract infection Encounter type: initial encounter Indwelling urinary catheter type: unspecif ied Qualified Code(s): T83.511A - Infection and inflammatory reaction due to indwelling urethral catheter, initial encounter; N39.0 - Urinary tract in fection, site not specified
[2022-07-22 08:20] LABS: Hematocrit (blood only) 41.5 % (40.1-51.0); Hemoglobin 14.3 g/dl (14.0-18.0); Mean Corpuscular Hemoglobin 32.6 pg (25.0-34.0); Mean Corpuscular Hgb Conc 34.5 g/dL (32.0-36.0); Mean Corpuscular Volume 94.7 fL (80.0-100.0); Mean Platelet Volume 9.1 fL (9.4-12.4); Platelet Count 243 K/uL (130-400); RDW Coefficient of Variation 13.7 % (11.5-14.5); Red Blood Count 4.38 M/uL (4.63-6.08); White Blood Count 10.14 K/ul (4.8-10.8)
[2022-07-22 08:42] LABS: BUN Creatinine Ratio 15.2 (10-20); Calcium 9.3 mg/dl (8.5-10.1); Creatinine Clr Calc Pharmacy 94.5 ml/min; Est GFR (African American) 96.6 ml/min; Est GFR (Non-African American) 83.4 ml/min; Potassium 4.4 mmol/L (3.5-5.1)
--- NOTE | 2022-07-22 09:24 | Urology Progress Note ---
Date of Service July 22, 2022 Assessment & Plan (1) Complicated urinary tract infection: (2) Suprapubic catheter: Plan: Follow-up of suprapubic catheter and complicated UTI. - Afebrile, lab work reviewed - creatinine and WBC within normal limits. - Urine culture prelim showing gram negative bacilli. Blood cultures are pending. - He is currently on IV Cefepime - follow cultures and narrow per sensitivities. - Suprapubic catheter patent and draining orange urine with sediment and debris dependent in tubing. - SP catheter last changed in June. - Recommend change catheter after a few days of appropriate antibiotics or sooner if issues/malfunction. - Continue supportive care, antibiotics and management per primary service. - Continue Pyridium for discomfort. - He is currently on Tolterodine. Can try switching to oxybutynin 5 mg TID prn or scheduled for bladder spasms. - Recommend ID evaluation for recurrent UTIs. - will follow peripherally. Admission and Anticipated Discharge Date Admission Date: July 21, 2022 Supervising Physician Co-Signing Physician Notes I have discussed Mr. Garcia's case with CHACHA Gambino and agree with the above documentation. Subjective Patient seen and examined at bedside this morning. He is awake and resting in bed. He continues to have intermittent mild lower abdominal/bladder discomfort with occasional spasm. Patel catheter patent and draining orange urine with yellow sediment and debris in tubing. Patel has not required additional flush/irrigation since his arrival. No nausea or vomiting. No fever or chills. Review of Systems Constitutional: as per Subjective / HPI Gastrointestinal: as per Subjective / HPI Genitourinary: + as per Subjective / HPI Physical Exam Constitutional: well developed and well nourished; no acute distress Respiratory: normal respiratory effort; no respiratory distress and no labored breathing Gastrointestinal (Abdomen): Inspection/Auscultation: abdomen normal to inspection; abdomen not distended Percussion/Palpation: abdomen soft; abdomen nontender and no guarding Musculoskeletal: Head/Neck/Chest: normocephalic and head atraumatic Neurologic: moves all extremities and awake Psychiatric: Orientation: alert and oriented x 3 Genitourinary: Patel catheter patent and draining orange urine with yellow sediment and debris in tubing. Results & Data ([facility]) Vital Signs (Past 12 Hours) Vital Signs Temp Pulse Resp BP Pulse Ox O2 Del Method 07/22/22 08:05 36.7 C 71 16 143/83 H 97 Room Air 07/21/22 22:50 36.7 C 67 17 148/98 H 95 Room Air PG Care Time/CCT Total # of Minutes Spent Total Time Spent with Patient: Total time spent is greater than 50% in coordination of care (as documented) at patient's floor/unit and/or counseling patient: Coding Level of Care Code 68979 Subseq Hosp Care Lvl 2 Diagnoses Complicated urinary tract infection N39.0 Suprapubic catheter Z93.59
[2022-07-22] MEDS ORDERED: MoRPHine SULFATE 2 MG/ML CARP IV PRN (10:15)
[2022-07-22] MEDS: DOCUSATE SODIUM/SENNA 50/8.6MG TAB PO SCH (11:33)
[2022-07-22] MEDS: POLYETHYLENE (MIRALAX) 17 GM PACK PO SCH ×2 (11:33→20:30)
--- NOTE | 2022-07-22 14:14 | Surgery Progress Note ---
Date of Service July 22, 2022 Assessment & Plan (1) H/O ventral hernia repair: Plan: Status post robotic incarcerated ventral hernia repair, doing well. The fluid collection seen on imaging is a resolving seroma/hematoma. Clinically it is much smaller than it was just a few months ago. There is no evidence of infection. No surgical intervention indicated Patient needs to follow-up after resolution of his infection to proceed with excision of the basal cell carcinoma on his back Surgery will sign off, call with questions or concerns (2) Basal cell carcinoma: Admission and Anticipated Discharge Date Admission Date: July 21, 2022 Subjective 71-year-old male known to me from prior robotic incarcerated ventral hernia repair, admitted for complicated UTI secondary to indwelling suprapubic catheter. CT showed small fluid collection consistent with a resolving hematoma/seroma. This is been a known issue and has been decreasing in size. He is asymptomatic and there is no evidence of infection on prior exams. Physical Exam Constitutional: WD/WN, vitals as above Gastrointestinal (Abdomen): normal bowel sounds, soft, nontender, no hepatosplenomegaly Percussion/Palpation: no hernia (Resolving seroma/hematoma) Results & Data ([facility]) Vital Signs (Past 12 Hours) Vital Signs Temp Pulse Resp BP Pulse Ox O2 Del Method 07/22/22 08:05 36.7 C 71 16 143/83 H 97 Room Air Diagnostic Findings I personally reviewed and interpreted CT scan and agree with the assessment of a small fluid collection with no evidence of infection. This is much smaller than the size of the hernia sac on prior imaging and is resolving. ABDOMEN AND PELVIS CT WITH IV CONTRAST CT DOSE: 1162.15 mGy.cm HISTORY: lower ab pain, suprapubic TECHNIQUE: Multiaxial CT images of the abdomen and pelvis were performed following the use of intravenous contrast. A dose lowering technique was utilized adhering to the principles of ALARA. COMPARISON STUDY: Abdomen and pelvis CT 04/02/2022. FINDINGS: The lung bases are clear. No pneumoperitoneum. No pneumatosis. No acute fractures within the visualized osseous structures. Status post mesh repair. Focal hernia. There is a 5.4 x 4.0 cm loculated that contains fluid collection at the umbilicus. This slightly protrudes beyond the skin surface. This favors a postoperative seroma. Secondary infection would be considered less likely but difficult to exclude by imaging. The liver, gallbladder, pancreas, spleen, and adrenal glands unremarkable. The main portal vein is patent. Mild to moderate calcified plaque within the mildly ectatic abdominal aorta. No evidence for an aortic aneurysm. Stable 1 cm hypodense lesion within the right kidney. This likely represents a cyst. Normal left kidney. No ureteral stones. No hydronephrosis. No retroperitoneal lymphadenopathy. No pelvic free fluid. There is severe bladder wall thickening. This has progressed. A suprapubic catheter appears in good position. Small focus of gas within the bladder lumen may be due to the prior catheterization. Colonic diverticulosis. No evidence for acute diverticulitis. No bowel wall thickening or obstruction. Normal appendix. IMPRESSION: 1. Marked bladder wall thickening. This is slightly progressed in the interval. This could be chronic or represent a cystitis. Recommend correlation with urinalysis. 2. No bowel wall thickening or obstruction. 3. No hydronephrosis. 4. Interval mesh repair of an umbilical hernia. There is a 5.4 x 4.0 cm subcutaneous fluid collection at the umbilicus which is new from the prior study. This favors a postoperative seroma. Secondary infection would be difficult to exclude by imaging but considered less likely. ACT 112: Negative or not required by law. Electronically signed by: Huber De La Paz M.D. 07/21/2022 4:23 PM Dictated:[id number]/21/[id number] Transcribed: 07/21/221614 PG Care Time/CCT Total # of Minutes Spent Total Time Spent with Patient: Total time spent is greater than 50% in coordination of care (as documented) at patient's floor/unit and/or counseling patient: Coding Level of Care Code 41763 Inpt Consult Level 2 Diagnoses H/O ventral hernia repair Z98.890; Z87.19 Basal cell carcinoma C44.91
[2022-07-22] MEDS: MoRPHine SULFATE 4 MG/ML 1 ML CARP\\VIAL IV PRN ×3 (14:35→23:19)
[2022-07-22] MEDS: oxyCODONE HCL IR 5 MG TAB (IMMEDIATE RELEASE) PO PRN (17:20)
--- NOTE | 2022-07-22 17:39 | Infectious Disease Consult ---
Date of Consultation July 22, 2022 Assessment & Plan (1) Complicated urinary tract infection: 71 year old male with a PMH significant for urinary retention s/p bladder stimulator 06/2022 with removal on 07/02 at [place] with suprapubic catheter placed, alcohol dependence, depression, basal cell ca s/p resection, obesity who presented to [facility] ED on 07/21 with malfunctioning weinstein catheter. CT of the abdomen and pelvis with IV contrast showed "Marked bladder wall thickening. This is slightly progressed in the interval. This could be chronic or represent a cystitis. Recommend correlation with urinalysis. 2. No bowel wall thickening or obstruction. 3. No hydronephrosis. 4. Interval mesh repair of an umbilical hernia. There is a 5.4 x 4.0 cm subcutaneous fluid collection at the umbilicus which is new from the prior study. This favors a postoperative seroma. (2) Suprapubic catheter: (3) Catheter-associated urinary tract infection: Plan Discussion: Patient with h/o urethral strictures and urinary retention causing recurrent UTIs. Evaluation for suppressive abx therapy. Patient may not be a candidate for oral suppressive therapy. Review of PSA cultures shows R to quinolones (typically not good for suppressive therapy in general for this organism). We may consider extending his therapy further and replacing his catheter once improved. Recommend C/W Cefepime Await Blood cultures Await Urine cultures Thank you, ID will follow with you. Zena Ordonez MD Infectious Disease [facility], ID Connect Consultation Information This patient recommendation is based on a telemedicine consult request which was completed asynchronously through chart review and information provided by the primary physician. The patient was not seen or examined today. The evaluation is consultative in nature and all patient care and treatment decisions can either be accepted or rejected by the patient's primary hospital-based treating physician using their own independent medical judgment for their patient. Senior Web Designer contact information: Please call ID What's in My Handbag Call Center . (Phone Number For Physician Use Only) Time Spent Reviewing Chart: 31+ minutes History of Present Illness Reason for Consultation: Recurrent UTIs Requesting Physician: Dr. Foster Attending Physician: Kevin Foster MD History of Present Illness 71 year old male with a PMH significant for urinary retention s/p bladder stimulator 06/2022 with removal on 07/02 at [place] with suprapubic catheter placed, alcohol dependence, depression, basal cell ca s/p resection, obesity who presented to [facility] ED on 07/21 with malfunctioning weinstein catheter. 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 He also has a h/o uretheral strictures. Per last Urology notes he has a patent urethra. He underwent Stage 1 Interstim implantation on 06/11/22. This was complicated by a PSA uti on 06/19. I dont have records of treatment at that time. On 07/02 he underwent removal of device d/t trial being unsuccessful. For approximately 3 days he has noted decreased urine output as well as suprapubic discomfort. He usually uncapped his suprapubic catheter and drained urine and he has noted a decreased amount compared to what he is usually present. Review of prior cx show in 06/19 Ucx grew PSA R to quinolones 05/22/22 Ucx >100K PSA, 04/02/22 Ucx >100K PSA, C.albicans, 09/18/21 Ucx >100k MSSA (no associated blood cx then) On admission, Afebrile and HD stable. Initial labs showed normal WBC, UA obtained from his weinstein catheter was noted to be Turbid, 3+ blood, Nitrite positive, 3+ leukocyte esterase, WBC > 30, and urine bacteria. CT of the abdomen and pelvis with IV contrast showed "Marked bladder wall thickening. This is slightly progressed in the interval. This could be chronic or represent a cystitis. Recommend correlation with urinalysis. 2. No bowel wall thickening or obstruction. 3. No hydronephrosis. 4. Interval mesh repair of an umbilical hernia. There is a 5.4 x 4.0 cm subcutaneous fluid collection at the umbilicus which is new from the prior study. This favors a postoperative seroma. Patient was placed on Cefepime. Labs remained stable, WBC normal, creatinine normal. Blood cultures not ordered on admission, Drawn today in lab, 07/21 Urine culture growing >100, 000 cfu gram negative bacilli, ID consulted for recurrent Pseudomonal UTIs and evaluation for suppressive therapy Allergies Allergy/AdvReac Type Severity Reaction Status Date / Time No Known Allergies Allergy Verified 07/21/22 15:00 Home Medications Medication Instructions Recorded Confirmed Type ascorbate calcium (vitamin C) 500 500 mg PO QAM 03/22/19 07/21/22 History mg tablet vitamin B complex 1 cap PO QAM 03/22/19 07/21/22 History Lactobacillus acidophilus 10 1 cell PO QAM 11/09/19 07/21/22 History billion cell capsule (Probiotic) multivitamin 1 tab PO QAM 10/15/20 07/21/22 History aspirin 81 mg tablet,delayed 81 mg PO QAM 07/11/21 07/21/22 History release (Adult Low Dose Aspirin) cholecalciferol (vitamin D3) 25 1,000 unit PO QAM 10/16/21 07/21/22 History mcg (1,000 unit) capsule duloxetine 60 mg capsule,delayed 60 mg PO QAM #30 caps 05/22/22 07/21/22 Rx release omega 0-kzm-lel-fish oil 1,000 mg 1 cap PO QAM 06/19/22 07/21/22 History (120 mg-180 mg) capsule (Fish Oil) hydrocodone 5 mg-acetaminophen 325 1 tab PO Q4H PRN moderate-severe 06/22/22 07/21/22 Rx mg tablet pain #15 tabs tramadol 50 mg tablet 50 mg PO HS PRN pain #30 tabs 07/18/22 07/21/22 Rx vitamin E (dl, acetate) 90 mg (200 90 mg PO DAILY 07/21/22 07/21/22 History unit) capsule Patient History Medical History Asthma Basal cell carcinoma of back Bladder outlet obstruction Bladder wall thickening BPH (benign prostatic hyperplasia) Chronic back pain Hepatic steatosis History of COVID-19 Dx 09/2020 > symptoms at time of: fatigue, loss of taste and smell > resolved Hyperglycemia Incarcerated ventral hernia Obesity Suprapubic catheter Urethral stricture Urinary retention Surgical History H/O dilation of urethra x3 H/O ventral hernia repair (04/10/22) Robotic Laparoscopic Ventral Hernia Repair with Mesh, Transabdominal pre peritoneal - John Perez, DO, FACS History of basal cell carcinoma (BCC) excision (05/28/22) FINAL DIAGNOSIS Skin, left back (punch biopsy): - A micronodular and macronodular basal cell carcinoma is seen. - This basal cell carcinoma extends to the edges of the punch biopsy specimen. - A conservative reexcision of this site to obtain negative surgical margins is suggested. History of cystoscopy irect Visual Internal Urethrotomy History of surgery suprapubic cath placed @ [facility] History of ureter repair STRICTURE Hx of biopsy 10/29/2021: lesion on his back punch biopsy Dr. Perez in office Hx of biopsy Back Mass Wide Local Excision (11/20/21): Grade view 2, MAC#3, ETT 7.5 at [facility] S/P tonsillectomy Family History Mother Alcohol abuse Bone cancer Dementia Breast cancer She age 85 Uterine cancer Brother Alcohol abuse Brother Depression - suicide. Father Dementia Began after open heart surgery age 89. Still living as of 10/2019. born 1923 Heart disease valvular Other No family history of adverse response to anesthesia Social History Smoking Status: Former smoker Age Started Using Tobacco: 21; Age Quit Using Tobacco: 26; Second Hand Exposure: No; Hx Alcohol Use: Yes Alcohol type: wine Alcohol Intake Frequency: 4 or More x per/Week Hx Substance Use: No Preferred Language: Montserratian Communication Ability: Effective Visual Impairment: No Limitations Hearing Ability: Normal Needle Punch Machine Operator Required: No Beliefs That Will Affect Care: None marital status: Current Living Situation: Spouse Current Living Situation Comment: current occupational status: retired How many Children do You have: 1 Other Information That Helps Us Care for You: No Feels Safe at Home: Yes Safety Concerns: Feels Safe At This Time Childhood Exposure to Second-Hand Smoke: Yes caffeine: Yes Dental Care, Regularly: Yes Physical Activity Frequency: 3-4 Times per Week Physical Activity Frequency Comment: walk Seatbelt Use: always Sunscreen Use: Yes Do you think of yourself as: straight/heterosexual Assistive Devices: None Results & Data ([facility]) Vital Signs (Past 12 Hours) Vital Signs Temp Pulse Resp BP Pulse Ox O2 Del Method 07/22/22 15:22 37.0 C 72 18 135/83 95 Room Air 07/22/22 08:05 36.7 C 71 16 143/83 H 97 Room Air Laboratory Results Laboratory Results - last 48 hr 07/21/22 07/21/22 07/21/22 14:29 14:29 14:49 WBC 10.42 RBC 4.64 Hgb 15.2 Hct 44.2 MCV 95.3 MCH 32.8 MCHC 34.4 RDW Std Deviation 48.3 H RDW Coeff of Mandie 13.8 Plt Count 241 MPV 9.0 L Immature Gran % (Auto) 0.4 Neut % (Auto) 64.4 Lymph % (Auto) 18.5 Camp % (Auto) 9.4 Eos % (Auto) 6.4 Baso % (Auto) 0.9 Neut # (Auto) 6.71 H Lymph # (Auto) 1.93 Camp # (Auto) 0.98 H Eos # (Auto) 0.67 H Baso # (Auto) 0.09 Immature Gran # (Auto) 0.04 H Sodium 135 L Potassium 4.5 Chloride 102 Carbon Dioxide 22 Anion Gap 11 BUN 12 Creatinine 0.82 Est Cr Clr Drug Dosing 106.0 Est GFR ( Amer) 103.1 Est GFR (Non-Af Amer) 89.0 BUN/Creatinine Ratio 14.6 Glucose 77 Calcium 9.7 Total Bilirubin 0.9 AST 38 ALT 34 Alkaline Phosphatase 96 Total Protein 7.9 Albumin 4.5 Globulin 3.4 Albumin/Globulin Ratio 1.3 Lipase 16 Procalcitonin Urine Color Yellow Urine Appearance Turbid A Urine pH 5.5 Ur Specific [place] 1.013 Urine Protein 2+ H Urine Glucose (UA) Negative Urine Ketones Negative Urine Blood 3+ H Urine Nitrite Positive A Urine Bilirubin Negative Urine Urobilinogen Negative Ur Leukocyte Esterase 3+ H Urine WBC (Auto) >30 H Urine RBC (Auto) 10-30 H U Hyaline Cast (Auto) 1-5 U Epithel Cells (Auto) 20-30 H Urine Bacteria (Auto) 1+ H Urine Yeast Not Reportable SARS-CoV-2, RNA, NAAT 07/21/22 07/22/22 07/22/22 17:24 07:46 07:46 WBC 10.14 RBC 4.38 L Hgb 14.3 Hct 41.5 MCV 94.7 MCH 32.6 MCHC 34.5 RDW Std Deviation 48.0 H RDW Coeff of Mandie 13.7 Plt Count 243 MPV 9.1 L Immature Gran % (Auto) Neut % (Auto) Lymph % (Auto) Camp % (Auto) Eos % (Auto) Baso % (Auto) Neut # (Auto) Lymph # (Auto) Camp # (Auto) Eos # (Auto) Baso # (Auto) Immature Gran # (Auto) Sodium 135 L Potassium 4.4 Chloride 101 Carbon Dioxide 28 Anion Gap 6 BUN 14 Creatinine 0.92 Est Cr Clr Drug Dosing 94.5 Est GFR ( Amer) 96.6 Est GFR (Non-Af Amer) 83.4 BUN/Creatinine Ratio 15.2 Glucose 94 Calcium 9.3 Total Bilirubin AST ALT Alkaline Phosphatase Total Protein Albumin Globulin Albumin/Globulin Ratio Lipase Procalcitonin Urine Color Urine Appearance Urine pH Ur Specific [place] Urine Protein Urine Glucose (UA) Urine Ketones Urine Blood Urine Nitrite Urine Bilirubin Urine Urobilinogen Ur Leukocyte Esterase Urine WBC (Auto) Urine RBC (Auto) U Hyaline Cast (Auto) U Epithel Cells (Auto) Urine Bacteria (Auto) Urine Yeast SARS-CoV-2, RNA, NAAT NEGATIVE 07/22/22 08:43 WBC RBC Hgb Hct MCV MCH MCHC RDW Std Deviation RDW Coeff of Mandie Plt Count MPV Immature Gran % (Auto) Neut % (Auto) Lymph % (Auto) Camp % (Auto) Eos % (Auto) Baso % (Auto) Neut # (Auto) Lymph # (Auto) Camp # (Auto) Eos # (Auto) Baso # (Auto) Immature Gran # (Auto) Sodium Potassium Chloride Carbon Dioxide Anion Gap BUN Creatinine Est Cr Clr Drug Dosing Est GFR ( Amer) Est GFR (Non-Af Amer) BUN/Creatinine Ratio Glucose Calcium Total Bilirubin AST ALT Alkaline Phosphatase Total Protein Albumin Globulin Albumin/Globulin Ratio Lipase Procalcitonin < 0.05 Urine Color Urine Appearance Urine pH Ur Specific [place] Urine Protein Urine Glucose (UA) Urine Ketones Urine Blood Urine Nitrite Urine Bilirubin Urine Urobilinogen Ur Leukocyte Esterase Urine WBC (Auto) Urine RBC (Auto) U Hyaline Cast (Auto) U Epithel Cells (Auto) Urine Bacteria (Auto) Urine Yeast SARS-CoV-2, RNA, NAAT [address] [address] / Director: Anup Lee M.D. Clinical Laboratory Report Name: LORAINE GALEAS Acct: [id number] Status: ADM [place] : 1950 [facility] Date: 07/21/22 Age: 71 Sex: M Dis Date: Loc: Medical/Surgical/Ortho 3 [facility]/Bed: [facility] Spec: [id number] Collected: 07/21/22 Received: 07/21/[address]: Brian Cooper MD Source: Urine,Indwelling Cath OV Order: Ordered: Urine Culture Procedure Result Verified Site Urine Culture Preliminary 07/22/22 Organism 1 Gram negative bacilli [place] Count >100,000 CFU/ml Sens Sensitivities to Follow Medications Administered Current Inpatient Medications Acetaminophen (Acetaminophen 325 Mg Tab) 650 mg PO Q6H PRN PRN Reason: Pain (1,2,3) Or Fever Stop: 08/20/22 17:44 Ascorbic Acid (Ascorbic Acid 500 Mg Tab) [facility] Stop: 08/21/22 08:59 Last Admin: 07/22/22 08:00 Dose: 500 mg Aspirin (Aspirin 81 Mg Ectab) [facility] Stop: 08/21/22 08:59 Last Admin: 07/22/22 07:59 Dose: 81 mg Duloxetine HCl (Duloxetine Hcl 60 Mg Cap) 60 [facility] Stop: 08/21/22 08:59 Last Admin: 07/22/22 08:00 Dose: 60 mg Fish Oil (Valley-3 (Purified Fish Oil) 1 Gm Cap) 1 gm PO QAM [facility] Stop: 08/21/22 08:59 Last Admin: 07/22/22 08:00 Dose: 1 gm Cefepime HCl 2,000 mg/ Syringe 20 mls @ 5 mls/min IV Q12H [facility]; Protocol Stop: 08/01/22 04:59 Last Admin: 07/22/22 17:01 Dose: 5 mls/min Lactobacillus Acidophilus (Advanced Probiotic 1250 Mg Capsule) 2 cap PO QAM [facility] Stop: 08/21/22 08:59 Last Admin: 07/22/22 08:00 Dose: 2 cap Morphine Sulfate (Morphine Sulfate 2 Mg/Ml Carp) 2 mg IV Q4H PRN PRN Reason: Pain (4,5,6) Stop: 08/04/22 17:16 Last Admin: 07/22/22 10:31 Dose: 2 mg Morphine Sulfate (Morphine Sulfate 4 Mg/Ml 1 Ml Carp\\Vial) 4 mg IV Q4H PRN PRN Reason: severe pain Stop: 08/05/22 10:59 Last Admin: 07/22/22 14:35 Dose: 4 mg Multivitamins (Multivitamin Tab) 1 tab PO QAM [facility] Stop: 08/21/22 08:59 Last Admin: 07/22/22 07:59 Dose: 1 tab Oxycodone HCl (Oxycodone Hcl Ir 5 Mg Tab (Immediate Release)) 5 mg PO Q4H PRN PRN Reason: moderate pain not requiring IV Stop: 08/05/22 16:43 Last Admin: 07/22/22 17:20 Dose: 5 mg Phenazopyridine HCl (Phenazopyridine Hcl 100 Mg Tab) 100 mg PO TID PRN PRN Reason: bladder spasm Stop: 08/20/22 20:05 Last Admin: 07/22/22 08:01 Dose: 100 mg Polyethylene Glycol (Polyethylene (Miralax) 17 Gm Pack) 17 gm PO BID [facility] Stop: 08/21/22 11:14 Last Admin: 07/22/22 11:33 Dose: 17 gm Senna/Docusate Sodium (Docusate Sodium/Senna 50/8.6mg Tab) [facility] Stop: 08/21/22 11:14 Last Admin: 07/22/22 11:33 Dose: 1 tab Tolterodine Tartrate (Tolterodine Tartrate 2 Mg Tab) 2 mg PO BID [facility] Stop: 08/20/22 17:19 Last Admin: 07/22/22 07:59 Dose: 2 mg Vitamin B Complex (Vitamin B Complex Tab) 1 tab PO QAM [facility] Stop: 08/21/22 08:59 Last Admin: 07/22/22 08:00 Dose: 1 tab Vitamin D (Cholecalciferol 1,000 Units 25 Mcg Tab) 1,000 units PO QAM [facility] Stop: 08/21/22 08:59 Last Admin: 07/22/22 07:59 Dose: 1,000 units Vitamin E (Tocopheryl, Dl-Alpha 100 Units Cap) 100 units PO DAILY [facility] Stop: 08/21/22 08:59 Last Admin: 07/22/22 08:00 Dose: 100 units (1) Catheter-associated urinary tract infection Encounter type: initial encounter Indwelling urinary catheter type: unspecified Qualified Code(s): T83.511A - Infection and inflammatory reaction due to indwelling urethral catheter, initial encounter; N39.0 - Urinary tract infection, site not specified
[2022-07-23] MEDS: CEFEPIME 2,000 MG in SYRINGE 0 ML IV SCH ×2 (05:44→18:22)
[2022-07-23] MEDS: MoRPHine SULFATE 4 MG/ML 1 ML CARP\\VIAL IV PRN ×4 (05:45→20:28)
[2022-07-23 07:08] LABS: Hematocrit (blood only) 43.1 % (40.1-51.0); Hemoglobin 14.5 g/dl (14.0-18.0); Mean Corpuscular Hemoglobin 31.8 pg (25.0-34.0); Mean Corpuscular Hgb Conc 33.6 g/dL (32.0-36.0); Mean Corpuscular Volume 94.5 fL (80.0-100.0); Mean Platelet Volume 9.3 fL (9.4-12.4); Platelet Count 249 K/uL (130-400); RDW Coefficient of Variation 13.8 % (11.5-14.5); RDW Standard Deviation 47.9 fL (36.4-46.3); Red Blood Count 4.56 M/uL (4.63-6.08); White Blood Count 8.56 K/ul (4.8-10.8)
[2022-07-23 07:28] LABS: BUN Creatinine Ratio 18.6 (10-20); Est GFR (African American) 101.1 ml/min; Est GFR (Non-African American) 87.2 ml/min; Magnesium 1.9 mg/dl (1.7-2.4); Potassium 4.2 mmol/L (3.5-5.1)
[2022-07-23] MEDS: ASPIRIN 81 MG ECTAB PO SCH (07:55)
[2022-07-23] MEDS: VITAMIN B COMPLEX TAB PO SCH (07:55)
[2022-07-23] MEDS: TOCOPHERYL, DL-ALPHA 100 UNITS CAP PO SCH (07:55)
[2022-07-23] MEDS: TOLTERODINE TARTRATE 2 MG TAB PO SCH ×2 (07:55→20:24)
[2022-07-23] MEDS: OMEGA-3 (PURIFIED FISH OIL) 1 GM CAP PO SCH (07:55)
[2022-07-23] MEDS: DULoxetine HCL 60 MG CAP PO SCH (07:56)
[2022-07-23] MEDS: POLYETHYLENE (MIRALAX) 17 GM PACK PO SCH ×2 (07:56→20:25)
[2022-07-23] MEDS: ADVANCED PROBIOTIC 1250 MG CAPSULE PO SCH (07:56)
[2022-07-23] MEDS: MULTIVITAMIN TAB PO SCH (07:56)
[2022-07-23] MEDS: CHOLECALCIFEROL 1,000 UNITS 25 MCG TAB PO SCH (07:56)
[2022-07-23] MEDS: ASCORBIC ACID 500 MG TAB PO SCH (07:56)
[2022-07-23] MEDS: DOCUSATE SODIUM/SENNA 50/8.6MG TAB PO SCH (08:04)
[2022-07-23] MEDS: oxyCODONE HCL IR 5 MG TAB (IMMEDIATE RELEASE) PO PRN ×4 (08:04→22:59)
--- NOTE | 2022-07-23 11:41 | Infectious Disease Progress Nt ---
Date of Service July 23, 2022 Assessment & Plan (1) Complicated urinary tract infection: Plan: 71 year old male with a PMH significant for urinary retention s/p bladder stimulator 06/2022 with removal on 07/02 at [place] with suprapubic catheter placed, alcohol dependence, depression, basal cell ca s/p resection, obesity who presented to [facility] ED on 07/21 with malfunctioning weinstein catheter. CT of the abdomen and pelvis with IV contrast showed "Marked bladder wall thickening. This is slightly progressed in the interval. This could be chronic or represent a cystitis. Recommend correlation with urinalysis. 2. No bowel wall thickening or obstruction. 3. No hydronephrosis. 4. Interval mesh repair of an umbilical hernia. There is a 5.4 x 4.0 cm subcutaneous fluid collection at the umbilicus which is new from the prior study. This favors a postoperative seroma. (2) Suprapubic catheter: (3) Catheter-associated urinary tract infection: Plan Discussion: Patient with h/o urethral strictures and urinary retention causing recurrent UTIs. Evaluation for suppressive abx therapy. Patient may not be a candidate for oral suppressive therapy. Review of PSA cultures shows R to quinolones (typically not good for suppressive therapy in general for this organism). His repeat UCX are sensitive to quinolones but PSA quickly can become R. We may consider extending his therapy further and replacing his catheter once improved. His catheter on exam is quite purulent, I would favor removal while patient on IV therapy. Recommend C/W Cefepime 2G IV BID, so long as he is not bacteremic this dosing regimen is adequate Await Blood cultures Anticipate he will need 2 week therapy but would recommend exchange of his suprapubic catheter Thank you, ID will follow with you. Zena Ordonez MD Infectious Disease [facility], ID Connect Admission and Anticipated Discharge Date Admission Date: July 21, 2022 Subjective Subsequent visit was provided via telemedicine using two-way real-time interactive telecommunication between the patient and the telemedicine provider. For the duration of the visit, the provider was performing the assessment from a different facility than the patient. This includesuse of bluetooth stethoscope forauscultationperformed by the telepresenter that the telemedicine provider can hear if described in the physical exam. Towel Sorter contact information: Please call ID Connect Call Center . (Phone Number For Physician Use Only) After establishing a telemedicine visit, patient was: Patient was verified with two unique identifiers, Patient/authorized rep acknowledged consent and understanding and Gave permission to continue telehealth session Patient continues to feel significant pressure in suprapubic area. Does not feel significantly changed. Physical Exam Constitutional: NAD Gastrointestinal (Abdomen): Soft NT ND, Suprapubic tenderness, Catheter suprapubic with purulent discharge around site Skin: intact no rash PIVS only Results & Data ([facility]) Vital Signs (Past 12 Hours) Vital Signs Temp Pulse Resp BP Pulse Ox O2 Del Method 07/23/22 08:05 36.4 C L 61 18 152/89 H 98 Room Air 07/23/22 00:02 36.8 C 75 18 136/87 99 Room Air Laboratory Results Short CBC 07/23/22 Range/Units 06:30 WBC 8.56 (4.8-10.8) K/ul Hgb 14.5 (14.0-18.0) g/dl Hct 43.1 (40.1-51.0) % Plt Count 249 (130-400) K/uL BMP 07/23/22 06:30 Sodium 134 L Potassium 4.2 Chloride 100 Carbon Dioxide 28 BUN 16 Creatinine 0.86 Glucose 106 H Calcium 9.0 Microbiology 07/22/22 08:48 Blood Aerobic Blood Culture - Preliminary No growth in Aerobic bottle after 24 hours. 07/22/22 08:48 Blood Anaerobic Blood Culture - Preliminary No growth in Anaerobic bottle after 24 hours. 07/22/22 08:43 Blood Aerobic Blood Culture - Preliminary No growth in Aerobic bottle after 24 hours. 07/22/22 08:43 Blood Anaerobic Blood Culture - Preliminary No growth in Anaerobic bottle after 24 hours. 07/21/22 14:49 Urine,Indwelling Cath Urine Culture - Preliminary Pseudomonas aeruginosa Medications Administered Current Inpatient Medications Acetaminophen (Acetaminophen 325 Mg Tab) 650 mg PO Q6H PRN PRN Reason: Pain (1,2,3) Or Fever Stop: 08/20/22 17:44 Ascorbic Acid (Ascorbic Acid 500 Mg Tab) [facility] Stop: 08/21/22 08:59 Last Admin: 07/23/22 07:56 Dose: 500 mg Aspirin (Aspirin 81 Mg Ectab) [facility] Stop: 08/21/22 08:59 Last Admin: 07/23/22 07:55 Dose: 81 mg Duloxetine HCl (Duloxetine Hcl 60 Mg Cap) [facility] Stop: 08/21/22 08:59 Last Admin: 07/23/22 07:56 Dose: 60 mg Fish Oil (Ross-3 (Purified Fish Oil) 1 Gm Cap) [facility] Stop: 08/21/22 08:59 Last Admin: 07/23/22 07:55 Dose: 1 gm Cefepime HCl 2,000 mg/ Syringe 20 mls @ 5 mls/min IV Q12H [facility]; Protocol Stop: 08/01/22 04:59 Last Admin: 07/23/22 05:44 Dose: 5 mls/min Lactobacillus Acidophilus (Advanced Probiotic 1250 Mg Capsule) 2 [facility] Stop: 08/21/22 08:59 Last Admin: 07/23/22 07:56 Dose: 2 cap Morphine Sulfate (Morphine Sulfate 2 Mg/Ml Carp) 2 mg IV Q4H PRN PRN Reason: Pain (4,5,6) Stop: 08/04/22 17:16 Last Admin: 07/22/22 10:31 Dose: 2 mg Morphine Sulfate (Morphine Sulfate 4 Mg/Ml 1 Ml Carp\\Vial) 4 mg IV Q4H PRN PRN Reason: severe pain Stop: 08/05/22 10:59 Last Admin: 07/23/22 09:48 Dose: 4 mg Multivitamins (Multivitamin Tab) 1 tab [facility] Stop: 08/21/22 08:59 Last Admin: 07/23/22 07:56 Dose: 1 tab Oxycodone HCl (Oxycodone Hcl Ir 5 Mg Tab (Immediate Release)) 5 mg PO Q4H PRN PRN Reason: moderate pain not requiring IV Stop: 08/05/22 16:43 Last Admin: 07/23/22 08:04 Dose: 5 mg Phenazopyridine HCl (Phenazopyridine Hcl 100 Mg Tab) 100 mg PO TID PRN PRN Reason: bladder spasm Stop: 08/20/22 20:05 Last Admin: 07/22/22 08:01 Dose: 100 mg Polyethylene Glycol (Polyethylene (Miralax) 17 Gm Pack) 17 gm PO BID [facility] Stop: 08/21/22 11:14 Last Admin: 07/23/22 07:56 Dose: 17 gm Senna/Docusate Sodium (Docusate Sodium/Senna 50/8.6mg Tab) 1 tab PO QAM [facility] Stop: 08/21/22 11:14 Last Admin: 07/23/22 08:04 Dose: 1 tab Tolterodine Tartrate (Tolterodine Tartrate 2 Mg Tab) 2 mg PO BID [facility] Stop: 08/20/22 17:19 Last Admin: 07/23/22 07:55 Dose: 2 mg Vitamin B Complex (Vitamin B Complex Tab) 1 tab PO QAM [facility] Stop: 08/21/22 08:59 Last Admin: 07/23/22 07:55 Dose: 1 tab Vitamin D (Cholecalciferol 1,000 Units 25 Mcg Tab) 1,000 units PO QAM [facility] Stop: 08/21/22 08:59 Last Admin: 07/23/22 07:56 Dose: 1,000 units Vitamin E (Tocopheryl, Dl-Alpha 100 Units Cap) 100 units PO DAILY [facility] Stop: 08/21/22 08:59 Last Admin: 07/23/22 07:55 Dose: 100 units (1) Catheter-associated urinary tract infection Encounter type: initial encounter Indwelling urinary catheter type: unspecified Qualified Code(s): T83.511A - Infection and inflammatory reaction due to indwelling urethral catheter, initial encounter; N39.0 - Urinary tract infection, site not specified
[2022-07-23] MEDS: ACETAMINOPHEN 325 MG TAB PO PRN (12:15)
[2022-07-23] MEDS: PHENAZOPYRIDINE HCL 100 MG TAB PO PRN (12:15)
--- NOTE | 2022-07-23 14:54 | Hospitalist Progress Note ---
Date of Service July 23, 2022 Assessment & Plan (1) Catheter-associated urinary tract infection: Plan: Prior UTI last month (when he had his catheter exchanged last) with pseudomonas UTI resistant to quinolones and tx w/ Zosyn and sent w/ IV for total 10 days in June. Patient w/ history of atonic bladder -- prior to current events over past year, patient w/ reported markedly distended bladder with estimated volume 3900cc in June 2021 Patient w/ Interstim implantation 06/11/22 however had fulminant UTI w/ purulent urine req hospitalization last month/IV abx and extended trial for [address], removed on 07/02 - CTAP on admit w/ marked bladder wall thickening, slightly progressed in interval, chronic vs cystitis - UA 3+ blood, +nitrite, 3+ leuk esterase, >30 WBC, 10-30 RBC, 20-30 epi, 1+ bacteria - Urine cx pending --> pseudomonas again, now reportedly sensitive to FQ - Empirically started on Cefepime, will continue this at 2g q12h (ID agreeable) - Blood cultures NGTD - Urology consulted -- timing for catheter exchange to be determined - Pain control -- APAP for mild pain, OxyIR 10mg for mod pain, Morphine 4mg for severe pain - Will need close ID follow up upon dc given recurrence of infections (2) H/O ventral hernia repair: Plan: - Patient is S/P robotic Jasvir incarcerated ventral hernia repair with mesh with Dr. Perez on 04/10/22 , previously noted small seroma at surgical site - CTAP on admission w/ 5.4 x 4 cm subcutaneous fluid collection at umbilicus n ew from prior study (noted prior study was before repair), abscess cannot be excluded - General surgery consulted -- per note, clinically much smaller than it was just a few months ago, no evidence for infection, no need for intervention at this time (3) Depression: Plan: - Continue Duloxetine - Does have increased depression/frustrations regarding catheter/infections - Consider adding lexapro or similar if any continued ongoing issues but would want to hold off starting given interactions w/ abx currently - this can be deferred to his PCP upon dc (4) Basal cell carcinoma: Plan: - hx recurrent basal cell carcinoma (recent and in the past) -- s/p excisional biopsy recently w/ Dr Perez - path w/ extension to the margins --> outpatient f/u for excision of basal cell carcinoma on his back Recommend having CM assist with getting patient follow up outpatient with DERMATOLOGY -- has seen Dr Vance in past for ulcerated lesion to L anterior chest, currently w/ one to back Plan Treatment plan as outlined above. Adjustments to pain meds as above. Continue abx for minimum of 2 weeks. Will need midline inserted as long as blood cultures are negative. Will discuss DC planning with CM to determine if he can receive abx at home. Plan to be d/w Dr. Foster. Admission and Anticipated Discharge Date Admission Date: July 21, 2022 Subjective Patient seen on daily rounds this morning. Still reports some suprapubic fullness/discomfort. Catheter still draining. No fever, chills, cp, nausea, vomiting, cp, or dyspnea. Review of Systems Review of Systems: All systems reviewed and are unremarkable except as noted in HPI and below. Denies fever, chills, fatigue, headache, nasal congestion, sore throat, cough, chest pain, shortness of breath, palpitations, orthopnea, PND, abdominal pain, n/v/d, constipation, dysuria, hematuria, frequency, back pain, joint pain or swelling, easy bruising or bleeding, skin lesions or rashes. Physical Exam Physical Exam: GENERAL: 71 yo Well-developed, well-nourished elderly WM. NAD. LUNGS: Clear to auscultation bilaterally. No W/R/R. CARDIOVASCULAR: Regular rate and rhythm. ABDOMEN: Soft, non-tender and non-distended. palpable umbilical mass, nontender. BS normoactive x 4 quad. EXTREMITIES: No edema. Non-tender. Peripheral pulses +2/4. NEUROLOGIC: A&O x3. PSYCHIATRIC: Cooperative. Appropriate mood and affect. SKIN: Warm, dry, intact. No rashes or lesions. Results & Data Results & Data ([facility]) Vital Signs (Past 12 Hours) Vital Signs Temp Pulse Resp BP Pulse Ox O2 Del Method 07/23/22 08:05 36.4 C L 61 18 152/89 H 98 Room Air Laboratory Results 07/23/22 06:30 07/23/22 06:30 PG Care Time/CCT Total # of Minutes Spent Total Time Spent with Patient: Total time spent is greater than 50% in coordination of care (as documented) at patient's floor/unit and/or counseling patient: Coding Level of Care Code 17491 Subseq Hosp Care Lvl 2 Diagnoses Catheter-associated urinary tract infection T83.511A; N39.0 Encounter type: initial encounter Indwelling urinary catheter type: unspecified H/O ventral hernia repair Z98.890; Z87.19 Depression F32.9 Basal cell carcinoma C44.91 (1) Catheter-associated urinary tract infection Encounter type: initial encounter Indwelling urinary catheter type: unspecified Qualified Code(s): T83.511A - Infection and inflammatory reaction due to indwelling urethral catheter, initial encounter; N39.0 - Urinary tract infection, site not specified
[2022-07-24] MEDS: CEFEPIME 2,000 MG in SYRINGE 0 ML IV SCH ×2 (05:48→18:30)
[2022-07-24] MEDS: oxyCODONE HCL IR 5 MG TAB (IMMEDIATE RELEASE) PO PRN ×5 (05:53→22:13)
[2022-07-24 07:03] LABS: Hematocrit (blood only) 42.5 % (40.1-51.0); Hemoglobin 14.5 g/dl (14.0-18.0); Mean Corpuscular Hemoglobin 32.2 pg (25.0-34.0); Mean Corpuscular Hgb Conc 34.1 g/dL (32.0-36.0); Mean Corpuscular Volume 94.2 fL (80.0-100.0); Mean Platelet Volume 9.2 fL (9.4-12.4); Platelet Count 254 K/uL (130-400); RDW Coefficient of Variation 13.7 % (11.5-14.5); RDW Standard Deviation 47.5 fL (36.4-46.3); Red Blood Count 4.51 M/uL (4.63-6.08); White Blood Count 8.26 K/ul (4.8-10.8)
[2022-07-24 07:29] LABS: BUN Creatinine Ratio 20.8 (10-20); Calcium 9.1 mg/dl (8.5-10.1); Creatinine Clr Calc Pharmacy 112.9 ml/min; Est GFR (African American) 105.8 ml/min; Est GFR (Non-African American) 91.3 ml/min; Potassium 3.9 mmol/L (3.5-5.1)
[2022-07-24] MEDS: TOLTERODINE TARTRATE 2 MG TAB PO SCH ×2 (07:42→21:51)
[2022-07-24] MEDS: VITAMIN B COMPLEX TAB PO SCH (07:42)
[2022-07-24] MEDS: MULTIVITAMIN TAB PO SCH (07:42)
[2022-07-24] MEDS: OMEGA-3 (PURIFIED FISH OIL) 1 GM CAP PO SCH (07:42)
[2022-07-24] MEDS: ASCORBIC ACID 500 MG TAB PO SCH (07:42)
[2022-07-24] MEDS: CHOLECALCIFEROL 1,000 UNITS 25 MCG TAB PO SCH (07:42)
[2022-07-24] MEDS: TOCOPHERYL, DL-ALPHA 100 UNITS CAP PO SCH (07:42)
[2022-07-24] MEDS: POLYETHYLENE (MIRALAX) 17 GM PACK PO SCH ×2 (07:43→21:52)
[2022-07-24] MEDS: ASPIRIN 81 MG ECTAB PO SCH (07:43)
[2022-07-24] MEDS: DULoxetine HCL 60 MG CAP PO SCH (07:43)
[2022-07-24] MEDS: ADVANCED PROBIOTIC 1250 MG CAPSULE PO SCH (07:43)
[2022-07-24] MEDS: DOCUSATE SODIUM/SENNA 50/8.6MG TAB PO SCH (08:48)
--- NOTE | 2022-07-24 10:39 | Infectious Disease Progress Nt ---
Date of Service July 24, 2022 Assessment & Plan (1) Complicated urinary tract infection: Plan: 71 year old male with a PMH significant for urinary retention s/p bladder stimulator 06/2022 with removal on 07/02 at [place] with suprapubic catheter placed, alcohol dependence, depression, basal cell ca s/p resection, obesity who presented to [facility] ED on 07/21 with malfunctioning weinstein catheter. CT of the abdomen and pelvis with IV contrast showed "Marked bladder wall thickening. This is slightly progressed in the interval. This could be chronic or represent a cystitis. Recommend correlation with urinalysis. 2. No bowel wall thickening or obstruction. 3. No hydronephrosis. 4. Interval mesh repair of an umbilical hernia. There is a 5.4 x 4.0 cm subcutaneous fluid collection at the umbilicus which is new from the prior study. This favors a postoperative seroma. (2) Suprapubic catheter: (3) Catheter-associated urinary tract infection: Plan Discussion: Patient with h/o urethral strictures and urinary retention causing recurrent UTIs. Evaluation for suppressive abx therapy. Patient may not be a candidate for oral suppressive therapy. Review of PSA cultures shows R to quinolones (typically not good for suppressive therapy in general for this organism). His repeat UCX are sensitive to quinolones but PSA quickly can become R. Given his quick recurrence I would favor an extended therapy for 2 weeks and replacing his catheter once improved. His catheter on exam is quite purulent, I would favor removal while patient on IV therapy. Recommend -C/W Cefepime 2G IV BID, this dose is appropriate for complicated UTI. -07/22 Blood cultures are No Growth at 48 hours, therefore safe to place a midline. -Patients states prior midline placement extremely painful, we discussed use of pain medication prior to placement -Anticipate he will need 2 week therapy 07/21-08/04 but would recommend exchange of his suprapubic catheter during this time to ensure coverage during exchange in case of transient bacteremia. If catheter cannot be replaced during that time would favor continuation of therapy until this source control can be achieved (not to exceed 3 weeks) -Weekly CBC with diff, CMP, please ensure these are sent to primary care or outpatient ID physician if this can be established Discharge planning discussion but patient does not want to be discharged today or tomorrow, Will defer to Hospitalist service/case management Thank you, ID will s/o at this time. Zena Ordonez MD Infectious Disease [facility], [facility] Admission and Anticipated Discharge Date Admission Date: July 21, 2022 Subjective Subsequent visit was provided via telemedicine using two-way real-time interactive telecommunication between the patient and the telemedicine provider. For the duration of the visit, the provider was performing the assessment from a different facility than the patient. This includesuse of bluetooth stethoscope forauscultationperformed by the telepresenter that the telemedicine provider can hear if described in the physical exam. Complaint Adjuster contact information: Please call [facility] Call Center . (Phone Number For Physician Use Only) After establishing a telemedicine visit, patient was: Patient was verified with two unique identifiers, Patient/authorized rep acknowledged consent and understanding and Gave permission to continue telehealth session Patient states he is feeling slightly improved. He denies fevers/chills. Pain has improved. When discussing outpatient management patient became upset. He states timing of potential discharge would be difficult today or tomorrow. Physical Exam Constitutional: NAD, Respiratory: CTAB Cardiovascular: RRR, no murmur, no edema Gastrointestinal (Abdomen): normal bowel sounds, soft, nontender, no hepatosplenomegaly Results & Data ([facility]) Vital Signs (Past 12 Hours) Vital Signs Temp Pulse Resp BP Pulse Ox O2 Del Method 07/24/22 07:38 36.5 C 67 16 113/76 95 Room Air Laboratory Results Laboratory Results - last 48 hr 07/23/22 07/23/22 07/24/22 06:30 06:30 06:06 WBC 8.56 8.26 RBC 4.56 L 4.51 L Hgb 14.5 14.5 Hct 43.1 42.5 MCV 94.5 94.2 MCH 31.8 32.2 MCHC 33.6 34.1 RDW Std Deviation 47.9 H 47.5 H RDW Coeff of Mandie 13.8 13.7 Plt Count 249 254 MPV 9.3 L 9.2 L Sodium 134 L Potassium 4.2 Chloride 100 Carbon Dioxide 28 Anion Gap 6 BUN 16 Creatinine 0.86 Est Cr Clr Drug Dosing 101.0 Est GFR ( Amer) 101.1 Est GFR (Non-Af Amer) 87.2 BUN/Creatinine Ratio 18.6 Glucose 106 H Calcium 9.0 Magnesium 1.9 07/24/22 06:06 WBC RBC Hgb Hct MCV MCH MCHC RDW Std Deviation RDW Coeff of Mandie Plt Count MPV Sodium 136 Potassium 3.9 Chloride 102 Carbon Dioxide 28 Anion Gap 6 BUN 16 Creatinine 0.77 Est Cr Clr Drug Dosing 112.9 Est GFR ( Amer) 105.8 Est GFR (Non-Af Amer) 91.3 BUN/Creatinine Ratio 20.8 H Glucose 103 H Calcium 9.1 Magnesium Microbiology 07/22/22 08:48 Blood Aerobic Blood Culture - Preliminary No growth in Aerobic bottle after 48 hours. 07/22/22 08:48 Blood Anaerobic Blood Culture - Preliminary No growth in Anaerobic bottle after 48 hours. 07/22/22 08:43 Blood Aerobic Blood Culture - Preliminary No growth in Aerobic bottle after 48 hours. 07/22/22 08:43 Blood Anaerobic Blood Culture - Preliminary No growth in Anaerobic bottle after 48 hours. 07/21/22 14:49 Urine,Indwelling Cath Urine Culture - [place] [address] / Director: Anup Lee M.D. Clinical Laboratory Report Name: LORAINE GALEAS Acct: [id number] [place]: [place] 1950 [facility] [place]: 07/21/22 Age: 71 Sex: M Dis Date: Loc: Medical/Surgical/Ortho 3 [facility]/Bed: [facility] Spec: [id number] Collected: 07/21/22 Received: 07/21/[address]: Brian Cooper MD Source: Urine,Indwelling Cath OV Order: Ordered: Urine Culture Procedure Result Verified Site Urine Culture Final 07/23/22-1151 Organism 1 Pseudomonas aeruginosa Diamond Count >100,000 CFU/ml Sens Sensitivities to Follow P aerugino [facility] --- --------- Cefepime S 4 Ceftazidime S 4 Ciprofloxacin S 0.5 Gentamicin S <=4 Levofloxacin S 1 Meropenem S <=1 Tobramycin S <=4 Pip/Tazo S <=16 Medications Administered Current Inpatient Medications Acetaminophen (Acetaminophen 325 Mg Tab) 650 mg PO Q6H PRN PRN Reason: Pain (1,2,3) Or Fever Stop: 08/20/22 17:44 Last Admin: 07/23/22 12:15 Dose: 650 mg Ascorbic Acid (Ascorbic Acid 500 Mg Tab) 500 mg PO [facility] Stop: 08/21/22 08:59 Last Admin: 07/24/22 07:42 Dose: 500 mg Aspirin (Aspirin 81 Mg Ectab) [facility] Stop: 08/21/22 08:59 Last Admin: 07/24/22 07:43 Dose: 81 mg Duloxetine HCl (Duloxetine Hcl 60 Mg Cap) 60 mg PO [facility] Stop: 08/21/22 08:59 Last Admin: 07/24/22 07:43 Dose: 60 mg Fish Oil ([place]-3 (Purified Fish Oil) 1 Gm Cap) 1 gm [facility] Stop: 08/21/22 08:59 Last Admin: 07/24/22 07:42 Dose: 1 gm Cefepime HCl 2,000 mg/ Syringe 20 mls @ 5 mls/min IV Q12H CASANDRA; Protocol Stop: 08/01/22 04:59 Last Admin: 07/24/22 05:48 Dose: 5 mls/min Lactobacillus Acidophilus (Advanced Probiotic 1250 Mg Capsule) 2 cap [facility] Stop: 08/21/22 08:59 Last Admin: 07/24/22 07:43 Dose: 2 cap Morphine Sulfate (Morphine Sulfate 4 Mg/Ml 1 Ml Carp\\Vial) 4 mg IV Q4H PRN PRN Reason: severe pain >7 Stop: 08/05/22 10:59 Last Admin: 07/23/22 20:28 Dose: 4 mg Multivitamins (Multivitamin Tab) 1 tab [facility] Stop: 08/21/22 08:59 Last Admin: 07/24/22 07:42 Dose: 1 tab Oxycodone HCl (Oxycodone Hcl Ir 5 Mg Tab (Immediate Release)) 10 mg PO Q4H PRN PRN Reason: pain scale 4-6 Stop: 08/05/22 16:43 Last Admin: 07/24/22 10:02 Dose: 10 mg Phenazopyridine HCl (Phenazopyridine Hcl 100 Mg Tab) 100 mg PO TID PRN PRN Reason: bladder spasm Stop: 08/20/22 20:05 Last Admin: 07/23/22 12:15 Dose: 100 mg Polyethylene Glycol (Polyethylene (Miralax) 17 Gm Pack) 17 gm PO BID [facility] Stop: 08/21/22 11:14 Last Admin: 07/24/22 07:43 Dose: 17 gm Senna/Docusate Sodium (Docusate Sodium/Senna 50/8.6mg Tab) 1 tab PO QAM [facility] Stop: 08/21/22 11:14 Last Admin: 07/24/22 08:48 Dose: 1 tab Tolterodine Tartrate (Tolterodine Tartrate 2 Mg Tab) 2 mg PO BID [facility] Stop: 08/20/22 17:19 Last Admin: 07/24/22 07:42 Dose: 2 mg Vitamin B Complex (Vitamin B Complex Tab) 1 tab PO QAM [facility] Stop: 08/21/22 08:59 Last Admin: 07/24/22 07:42 Dose: 1 tab Vitamin D (Cholecalciferol 1,000 Units 25 Mcg Tab) 1,000 units PO QAM [facility] Stop: 08/21/22 08:59 Last Admin: 07/24/22 07:42 Dose: 1,000 units Vitamin E (Tocopheryl, Dl-Alpha 100 Units Cap) 100 units PO DAILY [facility] Stop: 08/21/22 08:59 Last Admin: 07/24/22 07:42 Dose: 100 units (1) Catheter-associated urinary tract infection Encounter type: initial encounter Indwelling urinary catheter type: unspecified Qualified Code(s): T83.511A - Infection and inflammatory reaction due to indwelling urethral catheter, initial encounter; N39.0 - Urinary tract infection, site not specified
[2022-07-24] MEDS: MoRPHine SULFATE 4 MG/ML 1 ML CARP\\VIAL IV PRN (13:42)
--- NOTE | 2022-07-24 14:26 | Hospitalist Progress Note ---
Date of Service July 24, 2022 Assessment & Plan (1) Catheter-associated urinary tract infection: Plan: Prior UTI last month (when he had his catheter exchanged last) with pseudomonas UTI resistant to quinolones and tx w/ Zosyn and sent w/ IV for total 10 days in June. Patient w/ history of atonic bladder -- prior to current events over past year, patient w/ reported markedly distended bladder with estimated volume 3900cc in June 2021 Patient w/ Interstim implantation 06/11/22 however had fulminant UTI w/ purulent urine req hospitalization last month/IV abx and extended trial for [address], removed on 07/02 - CTAP on admit w/ marked bladder wall thickening, slightly progressed in interval, chronic vs cystitis - UA 3+ blood, +nitrite, 3+ leuk esterase, >30 WBC, 10-30 RBC, 20-30 epi, 1+ bacteria - Urine cx --> pseudomonas again, now reportedly sensitive to FQ - Empirically started on Cefepime, will continue this at 2g q12h (ID agreeable) - Blood cultures NGTD - Urology consulted -- timing for catheter exchange to be determined - Pain control -- APAP for mild pain, OxyIR 10mg for mod pain, Morphine 4mg for severe pain - Will need close ID follow up upon dc given recurrence of infections - Ordered midline to be placed, consent on chart - Script for Cefepime given to case management - Medically cleared for dc once home health can be arranged (2) H/O ventral hernia repair: Plan: - Patient is S/P robotic Jasvir incarcerated ventral hernia repair with mesh with Dr. Perez on 04/10/22 , previously noted small seroma at surgical site - CTAP on admission w/ 5.4 x 4 cm subcutaneous fluid collection at umbilicus new from prior study (noted prior study was before repair), abscess cannot be excluded - General surgery consulted -- per note, clinically much smaller than it was just a few months ago, no evidence for infection, no need for intervention at this time (3) Depression: Plan: - Continue Duloxetine - Does have increased depression/frustrations regarding catheter/infections - Consider adding lexapro or similar if any continued ongoing issues but would want to hold off starting given interactions w/ abx currently - this can be deferred to his PCP upon dc (4) Basal cell carcinoma: Plan: - hx recurrent basal cell carcinoma (recent and in the past) -- s/p excisional biopsy recently w/ Dr Perez - path w/ extension to the margins --> outpatient f/u for excision of basal cell carcinoma on his back Recommend having CM assist with getting patient follow up outpatient with DERMATOLOGY -- has seen Dr Vance in past for ulcerated lesion to L anterior chest, currently w/ one to back Plan Plan as outlined above. Midline ordered, consent obtained and placed on chart. Medically stable for dc once home health arranged of which case management is working on. Plan to be d/w Dr. Foster. Admission and Anticipated Discharge Date Admission Date: July 21, 2022 Subjective Patient seen on daily rounds this morning. He is resting comfortably on edge of bed and has no complaints/concerns. Feels that his bladder fullness/discomfort has improved. No cp or dyspnea. No n/v. Catheter continues to drain well. He is on board with plan to discharge home with course of IV antibiotics but is requesting that it be postponed until after Thanksgiving as he is concerned about being a burden to his who is planning to host dinner for the family. Review of Systems Review of Systems: All systems reviewed and are unremarkable except as noted in HPI and below. Denies fever, chills, fatigue, headache, nasal congestion, sore throat, cough, chest pain, shortness of breath, palpitations, orthopnea, PND, abdominal pain, n/v/d, constipation, dysuria, hematuria, frequency, back pain, joint pain or swelling, easy bruising or bleeding, skin lesions or rashes. Physical Exam Physical Exam: GENERAL: 71 yo Well-developed, well-nourished elderly WM. NAD. LUNGS: Clear to auscultation bilaterally. No W/R/R. CARDIOVASCULAR: Regular rate and rhythm. ABDOMEN: Soft, non-tender and non-distended. palpable umbilical mass, nontender. BS normoactive x 4 quad. EXTREMITIES: No edema. Non-tender. Peripheral pulses +2/4. NEUROLOGIC: A&O x3. PSYCHIATRIC: Cooperative. Appropriate mood and affect. SKIN: Warm, dry, intact. No rashes or lesions. Results & Data Results & Data ([facility]) Vital Signs (Past 12 Hours) Vital Signs Temp Pulse Resp BP Pulse Ox O2 Del Method 07/24/22 07:38 36.5 C 67 16 113/76 95 Room Air Laboratory Results 07/24/22 06:06 07/24/22 06:06 PG Care Time/CCT Total # of Minutes Spent Total Time Spent with Patient: Total time spent is greater than 50% in coordination of care (as documented) at patient's floor/unit and/or counseling patient: Coding Level of Care Code 20630 Subseq Hosp Care Lvl 2 Diagnoses Catheter-associated urinary tract infection T83.511A; N39.0 Encounter type: initial encounter Indwelling urinary catheter type: unspecified H/O ventral hernia repair Z98.890; Z87.19 Depression F32.9 Basal cell carcinoma C44.91 (1) Catheter-associated urinary tract infection Encounter type: initial encounter Indwelling urinary catheter type: unspecified Qualified Code(s): T83.511A - Infection and inflammatory reaction due to indwelling urethral catheter, initial encounter; N39.0 - Urinary tract infection, site not specified
--- NOTE | 2022-07-24 14:31 | Urology Progress Note ---
Date of Service July 24, 2022 Assessment & Plan (1) Complicated urinary tract infection: (2) Suprapubic catheter: Plan: 71 yo M with a suprapubic catheter admitted for complicated UTI. - Afebrile and hemodynamically stable. - Labs reviewed - WBC 8.26, Creatinine 0.77. - UC&S 07/21 grew out Pseudomonas. Blood cultures showing no growth x 48 hours. - On IV Cefepime with plan to continue for 2 weeks. Appreciate ID recommendations. - 16 Fr Suprapubic catheter exchanged at bedside today without difficulty. Pt tolerated well. - Maintain suprapubic catheter. - Continue supportive care and antibiotic therapy. - Pt [place] [facility] [place], plans to keep as scheduled. - Urology will sign-off for now. Please contact us with any further questions, concerns, or changes in patient status. Admission and Anticipated Discharge Date Admission Date: July 21, 2022 Subjective Patient seen and examined at bedside this afternoon. He is awake and resting in bed, appears comfortable. Suprapubic catheter patent and draining yellow/orange urine with purulent sediment in tubing and a few stringy clots noted. He continues to have intermittent suprapubic pressure, but reports improvement. No nausea or vomiting. No fever or chills. Review of Systems Constitutional: as per Subjective / HPI Gastrointestinal: as per Subjective / HPI Genitourinary: + as per Subjective / HPI Physical Exam Constitutional: well developed and well nourished; no acute distress Respiratory: normal respiratory effort; no respiratory distress and no labored breathing Gastrointestinal (Abdomen): Inspection/Auscultation: abdomen normal to inspection; abdomen not distended Psychiatric: Orientation: alert and oriented x 3 Genitourinary: Suprapubic catheter patent and draining cloudy yellow/orange urine with purulent sediment in tubing and a few stringy clots noted. Patient was prepped using sterile technique, 16 Vietnamese catheter was exchanged, balloon inflated to 10 mL. Catheter irrigated easily at completion. Results & Data ([facility]) Vital Signs (Past 12 Hours) Vital Signs Temp Pulse Resp BP Pulse Ox O2 Del Method 07/24/22 07:38 36.5 C 67 16 113/76 95 Room Air PG Care Time/CCT Total # of Minutes Spent Total Time Spent with Patient: Total time spent is greater than 50% in coordination of care (as documented) at patient's floor/unit and/or counseling patient: Coding Level of Care Code 40953 Subseq Hosp Care Lvl 2 Diagnoses Complicated urinary tract infection N39.0 Suprapubic catheter Z93.59
[2022-07-24] MEDS: ACETAMINOPHEN 325 MG TAB PO PRN (21:51)
[2022-07-24] MEDS: PHENAZOPYRIDINE HCL 100 MG TAB PO PRN (21:59)
[2022-07-25] MEDS: MoRPHine SULFATE 4 MG/ML 1 ML CARP\\VIAL IV PRN ×6 (00:06→22:19)
[2022-07-25] MEDS: oxyCODONE HCL IR 5 MG TAB (IMMEDIATE RELEASE) PO PRN ×4 (06:04→19:35)
[2022-07-25] MEDS: CEFEPIME 2,000 MG in SYRINGE 0 ML IV SCH ×2 (06:05→17:27)
[2022-07-25] MEDS: ADVANCED PROBIOTIC 1250 MG CAPSULE PO SCH (08:16)
[2022-07-25] MEDS: VITAMIN B COMPLEX TAB PO SCH (08:16)
[2022-07-25] MEDS: CHOLECALCIFEROL 1,000 UNITS 25 MCG TAB PO SCH (08:16)
[2022-07-25] MEDS: TOLTERODINE TARTRATE 2 MG TAB PO SCH ×2 (08:16→21:28)
[2022-07-25] MEDS: ASCORBIC ACID 500 MG TAB PO SCH (08:16)
[2022-07-25] MEDS: DULoxetine HCL 60 MG CAP PO SCH (08:16)
[2022-07-25] MEDS: TOCOPHERYL, DL-ALPHA 100 UNITS CAP PO SCH (08:16)
[2022-07-25] MEDS: MULTIVITAMIN TAB PO SCH (08:16)
[2022-07-25] MEDS: OMEGA-3 (PURIFIED FISH OIL) 1 GM CAP PO SCH (08:16)
[2022-07-25] MEDS: ASPIRIN 81 MG ECTAB PO SCH (08:16)
[2022-07-25] MEDS: DOCUSATE SODIUM/SENNA 50/8.6MG TAB PO SCH (08:17)
[2022-07-25] MEDS: PHENAZOPYRIDINE HCL 100 MG TAB PO PRN (08:17)
[2022-07-25] MEDS: POLYETHYLENE (MIRALAX) 17 GM PACK PO SCH ×2 (08:18→21:28)
--- NOTE | 2022-07-25 18:31 | Hospitalist Progress Note ---
Date of Service July 25, 2022 Assessment & Plan (1) Catheter-associated urinary tract infection: Plan: Prior UTI last month (when he had his catheter exchanged last) with pseudomonas UTI resistant to quinolones and tx w/ Zosyn and sent w/ IV for total 10 days in June. Patient w/ history of atonic bladder -- prior to current events over past year, patient w/ reported markedly distended bladder with estimated volume 3900cc in June 2021 Patient w/ Interstim implantation 06/11/22 however had fulminant UTI w/ purulent urine req hospitalization last month/IV abx and extended trial for [address], removed on 07/02 - CTAP on admit w/ marked bladder wall thickening, slightly progressed in interval, chronic vs cystitis - UA 3+ blood, +nitrite, 3+ leuk esterase, >30 WBC, 10-30 RBC, 20-30 epi, 1+ bacteria - Urine cx --> pseudomonas again, now reportedly sensitive to FQ - Empirically started on Cefepime, will continue this at 2g q12h (ID agreeable) - Blood cultures NGTD - Urology consulted -- timing for catheter exchange to be determined - Pain control -- APAP for mild pain, OxyIR 10mg for mod pain, Morphine 4mg for severe pain - Will need close ID follow up upon dc given recurrence of infections - Ordered midline to be placed, consent on chart - Script for Cefepime given to case management - Remains medically stable for discharge as long as line placed and he can get IV antibiotics at home setup (2) H/O ventral hernia repair: Plan: - Patient is S/P robotic Jasvir incarcerated ventral hernia repair with mesh with Dr. Perez on 04/10/22 , previously noted small seroma at surgical site - CTAP on admission w/ 5.4 x 4 cm subcutaneous fluid collection at umbilicus new from prior study (noted prior study was before repair), abscess cannot be excluded - General surgery consulted -- per note, clinically much smaller than it was just a few months ago, no evidence for infection, no need for intervention at this time (3) Depression: Plan: - Continue Duloxetine - Does have increased depression/frustrations regarding catheter/infections - Consider adding lexapro or similar if any continued ongoing issues but would want to hold off starting given interactions w/ abx currently - this can be deferred to his PCP upon dc (4) Basal cell carcinoma: Plan: - hx recurrent basal cell carcinoma (recent and in the past) -- s/p excisional biopsy recently w/ Dr Perez - path w/ extension to the margins --> outpatient f/u for excision of basal cell carcinoma on his back Recommend having CM assist with getting patient follow up outpatient with DERMATOLOGY -- has seen Dr Vance in past for ulcerated lesion to L anterior chest, currently w/ one to back Plan Medically stable for discharge as long as home antibiotics can be set up. Admission and Anticipated Discharge Date Admission Date: July 21, 2022 Subjective Patient awaiting antibiotics to be set up at home at this time. No fever or chills. Urine yellow in suprapubic catheter. Awaiting midline to be placed. Review of Systems Review of Systems: All systems reviewed & are unremarkable except as noted in Subjective Physical Exam Constitutional: WD/WN, vitals as above Respiratory: normal respiratory effort, lungs clear to auscultation Cardiovascular: Rate/Rhythm: regular rate and regular rhythm Neurologic: moves all extremities and awake; not confused Psychiatric: A+Ox3, euthymic affect Results & Data Results & Data ([facility]) Vital Signs (Past 12 Hours) Vital Signs Temp Pulse Resp BP Pulse Ox O2 Del Method 07/25/22 15:32 36.4 C L 69 16 112/83 98 Room Air 07/25/22 07:22 36.6 C 67 16 121/81 98 Room Air PG Care Time/CCT Total # of Minutes Spent Total Time Spent with Patient: Total time spent is greater than 50% in coordination of care (as documented) at patient's floor/unit and/or counseling patient: Coding Level of Care Code 59392 Subseq Hosp Care Lvl 1 Diagnoses Catheter-associated urinary tract infection T83.511A; N39.0 Encounter type: initial encounter Indwelling urinary catheter type: unspecified H/O ventral hernia repair Z98.890; Z87.19 Depression F32.9 Basal cell carcinoma C44.91 (1) Catheter-associated urinary tract infection Encounter type: initial encounter Indwelling urinary catheter type: unspecified Qualified Code(s): T83.511A - Infection and inflammatory reaction due to indwelling urethral catheter, initial encounter; N39.0 - Urinary tract infection, site not specified
[2022-07-26] MEDS: oxyCODONE HCL IR 5 MG TAB (IMMEDIATE RELEASE) PO PRN ×4 (01:50→19:55)
[2022-07-26] MEDS: MoRPHine SULFATE 4 MG/ML 1 ML CARP\\VIAL IV PRN ×4 (03:22→21:46)
[2022-07-26] MEDS: CEFEPIME 2,000 MG in SYRINGE 0 ML IV SCH ×2 (05:30→17:37)
[2022-07-26] MEDS: DULoxetine HCL 60 MG CAP PO SCH (08:33)
[2022-07-26] MEDS: OMEGA-3 (PURIFIED FISH OIL) 1 GM CAP PO SCH (08:34)
[2022-07-26] MEDS: TOLTERODINE TARTRATE 2 MG TAB PO SCH ×2 (08:34→19:57)
[2022-07-26] MEDS: ADVANCED PROBIOTIC 1250 MG CAPSULE PO SCH (08:34)
[2022-07-26] MEDS: ASCORBIC ACID 500 MG TAB PO SCH (08:34)
[2022-07-26] MEDS: TOCOPHERYL, DL-ALPHA 100 UNITS CAP PO SCH (08:34)
[2022-07-26] MEDS: CHOLECALCIFEROL 1,000 UNITS 25 MCG TAB PO SCH (08:34)
[2022-07-26] MEDS: ASPIRIN 81 MG ECTAB PO SCH (08:34)
[2022-07-26] MEDS: MULTIVITAMIN TAB PO SCH (08:35)
[2022-07-26] MEDS: VITAMIN B COMPLEX TAB PO SCH (08:35)
[2022-07-26] MEDS: DOCUSATE SODIUM/SENNA 50/8.6MG TAB PO SCH (08:35)
[2022-07-26] MEDS: POLYETHYLENE (MIRALAX) 17 GM PACK PO SCH ×2 (08:35→19:57)
--- NOTE | 2022-07-26 19:01 | Hospitalist Progress Note ---
Date of Service July 26, 2022 Assessment & Plan (1) Catheter-associated urinary tract infection: Plan: Prior UTI last month (when he had his catheter exchanged last) with pseudomonas UTI resistant to quinolones and tx w/ Zosyn and sent w/ IV for total 10 days in June. Patient w/ history of atonic bladder -- prior to current events over past year, patient w/ reported markedly distended bladder with estimated volume 3900cc in June 2021 Patient w/ Interstim implantation 06/11/22 however had fulminant UTI w/ purulent urine req hospitalization last month/IV abx and extended trial for [address], removed on 07/02 - CTAP on admit w/ marked bladder wall thickening, slightly progressed in interval, chronic vs cystitis - UA 3+ blood, +nitrite, 3+ leuk esterase, >30 WBC, 10-30 RBC, 20-30 epi, 1+ bacteria - Urine cx --> pseudomonas again, now reportedly sensitive to FQ - Empirically started on Cefepime, will continue this at 2g q12h (ID agreeable) - Blood cultures NGTD - Urology consulted -- timing for catheter exchange to be determined - Pain control -- APAP for mild pain, OxyIR 10mg for mod pain, Morphine 4mg for severe pain - Will need close ID follow up upon dc given recurrence of infections - Midline placed 07/25 - Script for Cefepime given to case management Medically stable for discharge pending home health to be set up at home. (2) H/O ventral hernia repair: Plan: - Patient is S/P robotic Jasvir incarcerated ventral hernia repair with mesh with Dr. Perez on 04/10/22 , previously noted small seroma at surgical site - CTAP on admission w/ 5.4 x 4 cm subcutaneous fluid collection at umbilicus new from prior study (noted prior study was before repair), abscess cannot be excluded - General surgery consulted -- per note, clinically much smaller than it was just a few months ago, no evidence for infection, no need for intervention at this time (3) Depression: Plan: - Continue Duloxetine - Does have increased depression/frustrations regarding catheter/infections - Consider adding lexapro or similar if any continued ongoing issues but would want to hold off starting given interactions w/ abx currently - this can be deferred to his PCP upon dc (4) Basal cell carcinoma: Plan: - hx recurrent basal cell carcinoma (recent and in the past) -- s/p excisional biopsy recently w/ Dr Perez - path w/ extension to the margins --> outpatient f/u for excision of basal cell carcinoma on his back Recommend having CM assist with getting patient follow up outpatient with DERMATOLOGY -- has seen Dr Vance in past for ulcerated lesion to L anterior chest, currently w/ one to back Plan Medically stable for discharge as long as home antibiotics can be set up. Admission and Anticipated Discharge Date Admission Date: July 21, 2022 Subjective No acute concerns or questions. Medically stable for discharge pending ability to do antibiotics at home. Midline placed yesterday. Unfortunately there was a mix up whether the patient was medically stable for discharge this morning. I apologized to the patient regarding this. Review of Systems Review of Systems: All systems reviewed & are unremarkable except as noted in Subjective Physical Exam Constitutional: WD/WN, vitals as above Respiratory: normal respiratory effort Psychiatric: A+Ox3, euthymic affect Results & Data Results & Data ([facility]) Vital Signs (Past 12 Hours) Vital Signs Temp Pulse Resp BP Pulse Ox O2 Del Method 07/26/22 14:54 36.5 C 65 16 119/82 95 Room Air 07/26/22 07:20 36.3 C L 56 L 16 141/72 H 97 Room Air PG Care Time/CCT Total # of Minutes Spent Total Time Spent with Patient: Total time spent is greater than 50% in coordination of care (as documented) at patient's floor/unit and/or counseling patient: Coding Level of Care Code 83209 Subseq Hosp Care Lvl 1 Diagnoses Catheter-associated urinary tract infection T83.511A; N39.0 Encounter type: initial encounter Indwelling urinary catheter type: unspecified H/O ventral hernia repair Z98.890; Z87.19 Depression F32.9 Basal cell carcinoma C44.91 (1) Catheter-associated urinary tract infection Encounter type: initial encounter Indwelling urinary catheter type: unspecified Qualified Code(s): T83.511A - Infection and inflammatory reaction due to indwelling urethral catheter, initial encounter; N39.0 - Urinary tract infection, site not specified
[2022-07-27] MEDS: oxyCODONE HCL IR 5 MG TAB (IMMEDIATE RELEASE) PO PRN ×3 (02:37→12:36)
[2022-07-27] MEDS: CEFEPIME 2,000 MG in SYRINGE 0 ML IV SCH ×2 (05:57→18:07)
[2022-07-27] MEDS: POLYETHYLENE (MIRALAX) 17 GM PACK PO SCH (08:40)
[2022-07-27] MEDS: MULTIVITAMIN TAB PO SCH (08:40)
[2022-07-27] MEDS: ASPIRIN 81 MG ECTAB PO SCH (08:41)
[2022-07-27] MEDS: ASCORBIC ACID 500 MG TAB PO SCH (08:41)
[2022-07-27] MEDS: TOCOPHERYL, DL-ALPHA 100 UNITS CAP PO SCH (08:41)
[2022-07-27] MEDS: DULoxetine HCL 60 MG CAP PO SCH (08:41)
[2022-07-27] MEDS: CHOLECALCIFEROL 1,000 UNITS 25 MCG TAB PO SCH (08:41)
[2022-07-27] MEDS: ADVANCED PROBIOTIC 1250 MG CAPSULE PO SCH (08:41)
[2022-07-27] MEDS: OMEGA-3 (PURIFIED FISH OIL) 1 GM CAP PO SCH (08:41)
[2022-07-27] MEDS: TOLTERODINE TARTRATE 2 MG TAB PO SCH (08:41)
[2022-07-27] MEDS: VITAMIN B COMPLEX TAB PO SCH (08:41)
[2022-07-27] MEDS: DOCUSATE SODIUM/SENNA 50/8.6MG TAB PO SCH (09:13)
[2022-07-27] MEDS: MoRPHine SULFATE 4 MG/ML 1 ML CARP\\VIAL IV PRN (10:26)
[2022-07-27] MEDS ORDERED: oxyCODONE HCL IR 5 MG TAB (IMMEDIATE RELEASE) PO PRN ×2 (13:05)
--- NOTE | 2022-07-27 13:08 | Hospitalist Progress Note ---
Date of Service July 27, 2022 Assessment & Plan (1) Catheter-associated urinary tract infection: Plan: Prior UTI last month (when he had his catheter exchanged last) with pseudomonas UTI resistant to quinolones and tx w/ Zosyn and sent w/ IV for total 10 days in June. Patient w/ history of atonic bladder -- prior to current events over past year, patient w/ reported markedly distended bladder with estimated volume 3900cc in June 2021 Patient w/ Interstim implantation 06/11/22 however had fulminant UTI w/ purulent urine req hospitalization last month/IV abx and extended trial for [address], removed on 07/02 - CTAP on admit w/ marked bladder wall thickening, slightly progressed in interval, chronic vs cystitis - UA 3+ blood, +nitrite, 3+ leuk esterase, >30 WBC, 10-30 RBC, 20-30 epi, 1+ bacteria - Urine cx --> pseudomonas again, now reportedly sensitive to FQ - Empirically started on Cefepime, will continue this at 2g q12h (ID agreeable) - Blood cultures NGTD - Urology consulted -- timing for catheter exchange to be determined - Pain control -- APAP for mild pain, OxyIR 10mg for mod pain, Morphine 4mg for severe pain --> adjusted 07/27 to OxyIR 5 for mod pain and 10mg for severe pain, d/c Morphine - Will need close ID follow up upon dc given recurrence of infections - Midline placed 07/25 - Script for Cefepime given to case management Medically stable for discharge pending home health to be set up at home. (2) H/O ventral hernia repair: Plan: - Patient is S/P robotic Jasvir incarcerated ventral hernia repair with mesh with Dr. Perez on 04/10/22 , previously noted small seroma at surgical site - CTAP on admission w/ 5.4 x 4 cm subcutaneous fluid collection at umbilicus new from prior study (noted prior study was before repair), abscess cannot be excluded - General surgery consulted -- per note, clinically much smaller than it was just a few months ago, no evidence for infection, no need for intervention at this time (3) Depression: Plan: - Continue Duloxetine - Does have increased depression/frustrations regarding catheter/infections - Consider adding lexapro or similar if any continued ongoing issues but would want to hold off starting given interactions w/ abx currently - this can be deferred to his PCP upon dc (4) Basal cell carcinoma: Plan: - hx recurrent basal cell carcinoma (recent and in the past) -- s/p excisional biopsy recently w/ Dr Perez - path w/ extension to the margins --> outpatient f/u for excision of basal cell carcinoma on his back Recommend having CM assist with getting patient follow up outpatient with DERMATOLOGY -- has seen Dr Vance in past for ulcerated lesion to L anterior chest, currently w/ one to back Plan Medically stable for discharge as long as home antibiotics can be set up. Case managment working on this. Admission and Anticipated Discharge Date Admission Date: July 21, 2022 Subjective Patient seen on daily rounds this morning. He is resting in bed, reports that the antibiotics have not been delivered to his house so he doesn't believe that he will be able to go home today. There was apparently a mix up regarding his medical readiness to return home yesterday as planned and subsequently lost his home health spot. He voices no complaints of bladder fullness or abd discomfort. He denies n/v. Review of Systems Review of Systems: All systems reviewed and are unremarkable except as noted in HPI and below. Denies fever, chills, fatigue, headache, nasal congestion, sore throat, cough, chest pain, shortness of breath, palpitations, orthopnea, PND, abdominal pain, n/v/d, constipation, dysuria, hematuria, frequency, back pain, joint pain or swelling, easy bruising or bleeding, skin lesions or rashes. Physical Exam Physical Exam: GENERAL: 71 yo Well-developed, well-nourished elderly WM. NAD. LUNGS: Clear to auscultation bilaterally. No W/R/R. CARDIOVASCULAR: Regular rate and rhythm. ABDOMEN: Soft, non-tender and non-distended. palpable umbilical mass, nontender. BS normoactive x 4 quad. EXTREMITIES: No edema. Non-tender. Peripheral pulses +2/4. NEUROLOGIC: A&O x3. PSYCHIATRIC: Cooperative. Appropriate mood and affect. SKIN: Warm, dry, intact. No rashes or lesions. Results & Data Results & Data ([facility]) Vital Signs (Past 12 Hours) Vital Signs Temp Pulse Resp BP Pulse Ox O2 Del Method 07/27/22 07:13 36.5 C 61 16 126/82 98 Room Air Laboratory Results no labs today PG Care Time/CCT Total # of Minutes Spent Total Time Spent with Patient: Total time spent is greater than 50% in coordination of care (as documented) at patient's floor/unit and/or counseling patient: Coding Level of Care Code 34324 Subseq Hosp Care Lvl 2 Diagnoses Catheter-associated urinary tract infection T83.511A; N39.0 Encounter type: initial encounter Indwelling urinary catheter type: unspecified H/O ventral hernia repair Z98.890; Z87.19 Depression F32.9 Basal cell carcinoma C44.91 (1) Catheter-associated urinary tract infection Encounter type: initial encounter Indwelling urinary catheter type: unspecified Qualified Code(s): T83.511A - Infection and inflammatory reaction due to indwelling urethral catheter, initial encounter; N39.0 - Urinary tract infection, site not specified
--- NOTE | 2022-07-27 14:12 | Discharge Summary ---
Date of Service July 27, 2022 Admission HPI Per Admitting Provider Pablo is a 71 year old male with a PMH significant for atonic bladder with current supra-pubic cath in place, recurrent Pseudomonal UTI's last in 06/2022 now resistant to fluoroquinolones, basal cell carcinoma S/P resection on 05/28/22,alcohol dependence, depression, and obesity who presented to the [facility] ED on 07/21/22 due to concerns for possible malfunctioning suprapubic weinstein catheter. In the ED the patient was found to be afebrile, hemodynamically stable, and stable on RA. Labs were remarkable for WBC WNlL, stable Hgb and platelets, absolute neutrophils of 6.71, stable renal function, and electrolytes, Liver function WNL, UA obtained from his weinstein catheter was noted to be Turbid, 3+ blood, Nitrite positive, 3+ leukocyte esterase, WBC > 30, and urine bacteria. CT of the abdomen and pelvis with IV contrast showed "Marked bladder wall thickening. This is slightly progressed in the interval. This could be chronic or represent a cystitis. Recommend correlation with urinalysis. 2. No bowel wall thickening or obstruction. 3. No hydronephrosis. 4. Interval mesh repair of an umbilical hernia. There is a 5.4 x 4.0 cm subcutaneous fluid collection at the umbilicus which is new from the prior study. This favors a postoperative seroma. Secondary infection would be difficult to exclude by imaging but considered less likely." Prior to admission the patient was given one dose of cefepime and 4mg IV morphine. At the time of the exam the patient was resting comfortably in bed in no acute distress. He states that he is frustrated to hear that he likely has a recurrent UTI as he was just admitted here last month for the same issue. He states that when he finished the home IV antibiotics for his last Pseudomonal UTI he feels as though it was not fully treated. He continues to have pain/pressure/discomfort over his bladder and at the suprapubic catheter site. He states that each morning there are blood clots and he also has pus at the catheter insertion site. He denies recent fevers and chills, chest pain, SOB, nausea, vomiting, diarrhea, melena and recent falls. We spoke about the fluid collection noted on CT at his previous hernia repair site. The patient had the procedure with Dr. Perez in General Surgery who he enjoys very much. He states that Dr. Perez was previously aware of the seroma but it appears as though it has increased in size and changed locations. The patient denies any pain at the location of the fluid collection, he just notes that it is firm. He previously had the bladder stimulator placed at [facility] and has been very unhappy with their care; he would like to transfer care back to [facility]. I spoke to him regarding code status, the patient is a full code and his would make decisions for him if he could not make them himself. PLease refer to Dr. Pascual's attestation for any changes to the treatment plan Principal Diagnosis Complicated UTI d/t Pseudomonas Discharge Exam GENERAL: 71 yo Well-developed, well-nourished elderly WM. NAD. LUNGS: Clear to auscultation bilaterally. No W/R/R. CARDIOVASCULAR: Regular rate and rhythm. ABDOMEN: Soft, non-tender and non-distended. palpable umbilical mass, nontender. BS normoactive x 4 quad. EXTREMITIES: No edema. Non-tender. Peripheral pulses +2/4. NEUROLOGIC: A&O x3. PSYCHIATRIC: Cooperative. Appropriate mood and affect. SKIN: Warm, dry, intact. No rashes or lesions. Discharge Data Allergies Allergy/AdvReac Type Severity Reaction Status Date / Time No Known Allergies Allergy Verified 07/29/22 13:18 Consultations 07/21/22 16:30 ED Decision to Admit Stat 07/21/22 17:19 Consult Urology Routine 07/21/22 17:20 Consult General Surgery Routine Ordered Studies Abdomen/Pelvis CT 07/21/22 15:[address] WITH IV CONTRAST CT DOSE: 1162.15 mGy.cm HISTORY: lower ab pain, suprapubic TECHNIQUE: Multiaxial CT images of the abdomen and pelvis were performed following the use of intravenous contrast. A dose lowering technique was utilized adhering to the principles of ALARA. COMPARISON STUDY: Abdomen and pelvis CT 04/02/2022. FINDINGS: The lung bases are clear. No pneumoperitoneum. No pneumatosis. No acute fractures within the visualized osseous structures. Status post mesh repair. Focal hernia. There is a 5.4 x 4.0 cm loculated that contains fluid collection at the umbilicus. This slightly protrudes beyond the skin surface. This favors a postoperative seroma. Secondary infection would be considered less likely but difficult to exclude by imaging. The liver, gallbladder, pancreas, spleen, and adrenal glands unremarkable. The main portal vein is patent. Mild to moderate calcified plaque within the mildly ectatic abdominal aorta. No evidence for an aortic aneurysm. Stable 1 cm hypodense lesion within the right kidney. This likely represents a cyst. Normal left kidney. No ureteral stones. No hydr onephrosis. No retroperitoneal lymphadenopathy. No pelvic free fluid. There is severe bladder wall thickening. This has progressed. A suprapubic catheter appears in good position. Small focus of gas within the bladder lumen may be due to the prior catheterization. Colonic diverticulosis. No evidence for acute diverticulitis. No bowel wall thickening or obstruction. Normal appendix. IMPRESSION: 1. Marked bladder wall thickening. This is slightly progressed in the interval. This could be chronic or represent a cystitis. Recommend correlation with urinalysis. 2. No bowel wall thickening or obstruction. 3. No hydronephrosis. 4. Interval mesh repair of an umbilical hernia. There is a 5.4 x 4.0 cm subcutaneous fluid collection at the umbilicus which is new from the prior study. This favors a postoperative seroma. Secondary infection would be difficult to exclude by imaging but considered less likely. ACT 112: Negative or not required by law. Electronically signed by: Huber De La Paz M.D. 07/21/2022 4:23 PM Hospital Course (1) Catheter-associated urinary tract infection: Prior UTI last month (when he had his catheter exchanged last) with pseudomonas UTI resistant to quinolones and tx w/ Zosyn and sent w/ IV for total 10 days in June. Patient w/ history of atonic bladder -- prior to current events over past year, patient w/ reported markedly distended bladder with estimated volume 3900cc in June 2021 Patient w/ Interstim implantation 06/11/22 however had fulminant UTI w/ purulent urine req hospitalization last month/IV abx and extended trial for [address], removed on 07/02 - CTAP on admit w/ marked bladder wall thickening, slightly progressed in interval, chronic vs cystitis - UA 3+ blood, +nitrite, 3+ leuk esterase, >30 WBC, 10-30 RBC, 20-30 epi, 1+ bacteria - Urine cx --> pseudomonas again, now reportedly sensitive to FQ - Empirically started on Cefepime, will continue this at 2g q12h (ID agreeable) - Blood cultures NGTD - Urology consulted -- timing for catheter exchange to be determined - Pain control -- APAP for mild pain, OxyIR 10mg for mod pain, Morphine 4mg for severe pain --> adjusted 07/27 to OxyIR 5 for mod pain and 10mg for severe pain, d/c Morphine - Will need close ID follow up upon dc given recurrence of infections - Midline placed 07/25 - Script for Cefepime given to case management Medically stable for discharge / home health to be set up at home. (2) H/O ventral hernia repair: - Patient is S/P robotic Jasvir incarcerated ventral hernia repair with mesh with Dr. Perez on 04/10/22 , previously noted small seroma at surgical site - CTAP on admission w/ 5.4 x 4 cm subcutaneous fluid collection at umbilicus new from prior study (noted prior study was before repair), abscess cannot be excluded - General surgery consulted -- per note, clinically much smaller than it was just a few months ago, no evidence for infection, no need for intervention at this time (3) Depression: - Continue Duloxetine - Does have increased depression/frustrations regarding catheter/infections - Consider adding lexapro or similar if any continued ongoing issues but would want to hold off starting given interactions w/ abx currently - this can be deferred to his PCP upon dc (4) Basal cell carcinoma: - hx recurrent basal cell carcinoma (recent and in the past) -- s/p excisional biopsy recently w/ Dr Perez - path w/ extension to the margins --> outpatient f/u for excision of basal cell carcinoma on his back Recommend having CM assist with getting patient follow up outpatient with DERMATOLOGY -- has seen Dr Vance in past for ulcerated lesion to L anterior chest, currently w/ one to back Plan Medically and hemodynamically stable for discharge home with home health and continued course of IV antibiotics. Plan d/w Dr. Holden who has also seen and evaluated this patient and agrees with aforementioned. Total Time Total Time Spent Total Time Spent (In Minutes): >30 minutes Discharge Plan Discharge Items Patient Disposition: Home - Home Health Services Reason For Visit: URINARY SYMPTOMS Discharge Diagnosis: complicated urinary tract infection Activity: Resume your previous activity Non-emergency contact: Primary Care Provider and Urologist Call non-emergency contact if: you have any medication questions and your symptoms worsen Follow-up/Referrals: Sravanthi Moncada PA-C [Primary Care Provider] - Diet: Regular Addtl Attending Provider Instructions: You were hospitalized due to urinary symptoms which were found to be secondary to another urinary tract infection. Given the existence of you requiring a catheter, this type of infection is classified as complicated. In addition, the type of bacteria that grew in your urine is difficult to eradicate. For that reason, you were seen in consult by infectious disease. It was decided that you would undergo a total of 14 days of IV antibiotics called Cefepime. A midline (deeper IV) was placed in your arm in order to administer the antibiotics. It will remain in place until the completion of your antibiotics. You were also seen by urology here at the hospital. They have exchanged your catheter. You will need to follow up with the urology office as scheduled. Regarding your umbilical hernia, you will need to follow up with your general surgeon to ensure that this continues to dissipate over time. It is advised that you follow up with your primary care provider within 1 week of discharge. If you have any questions following your discharge, you can call the nonemergency number listed on your discharge paperwork. In the event of a medical emergency, call 911. Pending Studies at Discharge: No Stand-Alone Forms: My [facility], Smoking Cessation Medications and DC Order Prescriptions: Continued duloxetine 60 mg capsule,delayed release(DR/EC) 60 mg PO QAM Qty: 30 3RF Probiotic 10 billion cell capsule 1 cell PO QAM cholecalciferol (vitamin D3) 25 mcg (1,000 unit) capsule 1,000 unit PO QAM ascorbate calcium (vitamin C) 500 mg tablet 500 mg PO QAM vitamin B complex capsule 1 cap PO QAM multivitamin Tablet 1 tab PO QAM aspirin [Adult Low Dose Aspirin] 81 mg tablet,delayed release (DR/EC) 81 mg PO QAM omega 9-vka-sbj-fish oil [Fish Oil] 1,000 mg (120 mg-180 mg) Capsule 1 cap PO QAM vitamin E (dl, acetate) 90 mg (200 unit) Capsule 90 mg PO DAILY Discontinued tramadol 50 mg tablet 50 mg PO HS PRN (Reason: pain) Qty: 30 0RF hydrocodone-acetaminophen 5-325 mg Tablet 1 tab PO Q4H PRN (Reason: moderate-severe pain) Qty: 15 0RF Discharge Orders: Discharge Order (Routine); Ordered 07/27/22 Ordered By: Caridad Vang Admission Data Admit Date/Time: 07/21/22 16:49 Attending Provider: Donnell Holden Admit Provider: Anup Pascual Primary Care Provider: Sravanthi Moncada Other Providers: Anup Pascual ; John Perez ; [facility] Other Interventions: Discharge Summary Assessment (RN) Last Done: 07/27/22 18:15 Supervising Physician Co-Signing Physician Notes Patient seen and examined at bedside. During face to face encounter, I obtained a history of hospital stay and physical exam. I discussed plan of care with TERRIE Vang and patient. Patient will be discharged after being treated for a complicated UTI> Patient will complete course of cefepime as an outpatient. I reviewed above note, discharge plan and agree with it. Coding Level of Care Code D/C DAY MANAGEMENT >30 MINS Diagnoses Catheter-associated urinary tract infection T83.511A; N39.0 Encounter type: initial encounter Indwelling urinary catheter type: unspecified H/O ventral hernia repair Z98.890; Z87.19 Depression F32.9 Basal cell carcinoma C44.91 Home Health Attestation I certify that this patient is under my care and that I, or a physicians bookkeeping assistant working with me, had a face to-face encounter that meets the [id number] encounter requirements with this patient. The encounter with the patient was in whole, or in part, for the following medical condition, which is the primary reason for home health care (list medical condition): I certify that, based on my findings, the following services are medically necessary home health services: My clinical findings support the need for the above services because: Further, I certify that my clinical findings support that this patient is homebound (i.e. absences from home require considerable and taxing effort and are for medical reasons or protestant services or infrequently or of short duration when for other reasons) because: Certification for Home Health Services: Based on the above findings, I certify that this patient is confined to the home and needs intermittent prison care, physical therapy and/or speech therapy or continues to need occupational therapy. The patient is under my care, and I have initiated the establishment of the plan of care. This patient will be followed by a physician who will periodically review the plan of care.
== END 2022-07-27 19:35 | disposition home health service (06) | DRG 699 ==
LOC: ED 13:56 → SUATTDRO 16:49 → 3W 16:49
DX: Z85.828 Personal history of other malignant neoplasm of skin; Z79.82 Long term (current) use of aspirin; T83.518A Infection and inflammatory reaction due to other urinary catheter, initial encounter; Z87.440 Personal history of urinary (tract) infections; N39.0 Urinary tract infection, site not specified; N40.0 Benign prostatic hyperplasia without lower urinary tract symptoms; Y74.2 Prosthetic and other implants, materials and accessory general hospital and personal-use devices associated with adverse incidents; Y92.019 Unspecified place in single-family (private) house as the place of occurrence of the external cause; B96.5 Pseudomonas (aeruginosa) (mallei) (pseudomallei) as the cause of diseases classified elsewhere; Z86.16 Personal history of COVID-19; Z93.6 Other artificial openings of urinary tract status; F32.A Depression, unspecified

== ENCOUNTER 2023-07-04 15:33 | Inpatient (IN) ==
--- NOTE | 2023-07-04 16:52 | Emergency Department Note ---
Impression & Plan Abdominal discomfort, Hyperkalemia, Weakness, UTI (urinary tract infection) ED Provider Note NAME: LORAINE GALEAS AGE: 72 SEX: M : 1950 ARRIVES VIA: Walk-In INFORMANT: Patient ED PROVIDER(S): aFzal Mcgregor DO CHIEF COMPLAINT: weakness HPI: Patient is a 72-year-old male who presents to the ER for weakness. He notes that this has been present for the past several weeks. Patient denies any headache or change in vision. No chest pain but does admit to shortness of breath which is fairly consistent with his asthma per patient. believes that the shortness of breath may be a little worse. Denies any belly pain nausea vomiting or diarrhea. He notes he has been having trouble with his suprapubic catheter and he is following with urology. He came in and was referred in by his PCP as he has been so weak and rundown. He has been unable to get out of bed for the past 2 weeks. He notes that he has been having chills. Additional history obtained from who was present at bedside and notes he feels this way typically when he gets UTIs. ADDITIONAL HISTORY OBTAINED: Per HPI Chronic Medical/Social Conditions Affecting Care: Per HPI PAST MEDICAL HISTORY:See Below PAST SURGICAL HISTORY:See Below FAMILY HISTORY:See Below SOCIAL HISTORY:See Below HOME MEDICATIONS:See Below ALLERGIES:See Below VITALS:See Below PHYSICAL EXAMINATION: GENERAL: Sitting up in bed, alert, well appearing, well nourished, no distress, non-toxic EYE EXAM: normal conjunctiva. PERRL and EOM's grossly intact. OROPHARYNX: no exudate, no erythema, lips, buccal mucosa, and tongue normal and mucous membranes are moist NECK: supple, no nuchal rigidity, no adenopathy, non-tender LUNGS: Clear to auscultation. Normal chest wall mechanics HEART: no murmurs, S1 normal and S2 normal ABDOMEN: abdomen soft, non-tender, normo-active bowel sounds, no masses, no rebound or guarding. UPPER EXTREMITIES: upper extremities are grossly normal. LOWER EXTREMITIES: No pitting edema. NEURO EXAM: Normal sensorium, cranial nerves II-XII grossly intact, normal speech, no gross weakness of arms, no gross weakness of legs. MEDICAL DECISION MAKING: Patient is a 72-year-old male who presents ER for above-stated complaint. IV was established blood work was obtained. External records reviewed as described below. Labs show no significant leukocytosis or anemia. INR unremarkable. BMP with slightly elevated potassium at 5.3. Bilirubin and LFTs were fairly unremarkable. Troponin was negative. UA with nitrates leuks, whites and bacteria although contaminated in the setting of suprapubic catheter I did elect to treat as he notes lower abdominal pain/suprapubic pain in the setting of thick drainage from the Pat[place], tiredness and weakness. Discussed case with the hospitalist for further evaluation management treatment. External Records Reviewed: Saw dermatology for basal cell cancer on 06/05 Consults/Care Managements Discussions: Per MDM Triage Nursing notes reviewed. Limited review of prior medical records performed Vital Signs: reviewed and remarkable for no significant abnormalities Differential diagnosis: Infection, dehydration, metabolic abnormality, hypo/hyperglycemia, electrolyte disturbance, anemia, hypoxia, cardiac sources, intracerebral event, toxicologic, neurologic, as well as other pathologies. ER treatment provided: See below Diagnostics interpreted by me include EKG and cardiac monitoring as listed below: -Cardiac Monitoring: An order was placed for continuous cardiac monitoring. The monitor shows a rate of 85 with sinus rhythm. -ECG: Sinus rhythm rate 87 Normal axis No PVCs QTc 440 -Laboratory studies:Interpreted by me as stated above in MDM and shown below. Imaging studies: Xrays: As interpreted by me: Portable AP upright 1 view of the chest shows no focal infiltrate CTs show: none Procedures:none Critical Care: None Past Med/Surg History Medical History History of UTI Recurrent hx, pseudomonas on recent urine culture > rx fosfomycin by urology BCC (basal cell carcinoma) Situational depression r/t intermittent severe UTI Dupuytren's contracture of both hands Obesity Suprapubic catheter Current Basal cell carcinoma of back History of COVID-19 09/2020- fatigue, loss of taste and smell > resolved Asthma Hepatic steatosis Bladder outlet obstruction Atonic bladder with suprapubic catheter placement Chronic back pain BPH (benign prostatic hyperplasia) Surgical History History of urologic surgery Medtronic Interstim placed 06/18/22 at [place]- later removed secondary to infection H/O ventral hernia repair Robotic Laparoscopic Ventral Hernia Repair with Mesh, Transabdominal pre peritoneal History of surgery suprapubic cath placed @ [facility] [place] Hx of biopsy Back Mass Wide Local Excision (11/20/21): Grade view 2, MAC#3, ETT 7.5 at [facility] [place] History of cystoscopy Direct Visual Internal Urethrotomy Hx of biopsy 10/29/2021: lesion on his back punch biopsy Dr. Perez in office History of ureter repair stricture History of basal cell carcinoma (BCC) excision back H/O dilation of urethra x3 S/P tonsillectomy Family History Mother Alcohol abuse Bone cancer Dementia Breast cancer She age 85 Uterine cancer Ovarian cancer Brother Alcohol abuse Brother Depression - suicide. Father Dementia Began after open heart surgery age 89. Still living as of 10/2019. born 1923 Heart disease valvular Other No family history of adverse response to anesthesia Denies family history of Prostate cancer Myocardial infarction Lung cancer Colorectal cancer Stroke Social History Smoking Status: Former smoker Age Started Using Tobacco: 21; Age Quit Using Tobacco: 26; Second Hand Exposure: No; Do You Dip or Chew Tobacco: No; Hx Alcohol Use: Yes Alcohol type: wine Alcohol Intake Frequency: 4 or More x per/Week Hx Substance Use: No Preferred Language: Malawian Communication Ability: Effective Visual Impairment: Diminished Hearing Ability: Normal Grill Chef Required: No Beliefs That Will Affect Care: None marital status: Current Living Situation: Spouse Current Living Situation Comment: current occupational status: retired How many Children do You have: 1 Feels Safe at Home: Yes Childhood Exposure to Second-Hand Smoke: Yes Diet: regular caffeine: Yes Dental Care, Regularly: Yes Physical Activity Frequency: 3-4 Times per Week Physical Activity Frequency Comment: walk Seatbelt Use: always Sunscreen Use: Yes Do you think of yourself as: straight/heterosexual Assistive Devices: Glasses Allergies Allergies Allergy/AdvReac Type Severity Reaction Status Date / Time No Known Allergies Allergy Verified 07/04/23 17:17 Home Meds Home Medications Medication Instructions Recorded Confirmed ascorbate calcium (vitamin C) 500 500 mg PO QAM 03/22/19 07/04/23 mg tablet vitamin B complex 1 cap PO QAM 03/22/19 07/04/23 Lactobacillus acidophilus 10 1 cell PO QAM 11/09/19 07/04/23 billion cell capsule (Probiotic) multivitamin 1 tab PO QAM 10/15/20 07/04/23 aspirin 81 mg tablet,delayed 81 mg PO QAM 07/11/21 07/04/23 release (Adult Low Dose Aspirin) cholecalciferol (vitamin D3) 25 1,000 unit PO QAM 10/16/21 07/04/23 mcg (1,000 unit) capsule omega 3-pum-lva-fish oil 1,000 mg 1 cap PO QAM 06/19/22 07/04/23 (120 mg-180 mg) capsule (Fish Oil) vitamin E (dl, acetate) 90 mg (200 90 mg PO QAM 07/21/22 07/04/23 unit) capsule amitriptyline 50 mg tablet 50 mg PO HS 07/04/23 07/04/23 duloxetine 60 mg capsule,delayed 60 mg PO QAM 07/04/23 07/04/23 release Previous Rx's Medication Instructions Recorded tramadol 50 mg tablet 50 mg PO DAILY #30 tabs 06/23/23 Results & Data (ED) Vital Signs Vital Signs - 24 hr 07/04/23 15:46 07/04/23 17:29 07/04/23 17:32 Temperature 36.5 C Temperature Source Temporal Artery Scan Pulse Rate 113 H 87 86 Pulse Rate [Left Apical] Pulse Rate from SpO2 Sensor Respiratory Rate 18 12 Respiratory Effort / Characteristics Respiratory Depth Blood Pressure 118/77 123/95 Blood Pressure [Left Arm] Blood Pressure Mean 90 104 Blood Pressure Mean [Left Arm] Pulse Oximetry 94 98 Oxygen Delivery Method Room Air Room Air Sepsis Recent Fever Within 48 Hours No Sepsis New/Unexplained Change in Mental Status N/A Sepsis Action Taken by Nursing No Action Required 07/04/23 18:00 07/04/23 18:40 07/04/23 18:40 Temperature Temperature Source Pulse Rate 85 89 Pulse Rate [Left Apical] 86 Pulse Rate from SpO2 Sensor Respiratory Rate 20 18 18 Respiratory Effort / Characteristics Non-Labored Respiratory Depth Normal Blood Pressure 117/83 131/82 Blood Pressure [Left Arm] 122/78 Blood Pressure Mean 94 98 Blood Pressure Mean [Left Arm] 92 Pulse Oximetry 94 96 94 Oxygen Delivery Method Room Air Room Air Room Air Sepsis Recent Fever Within 48 Hours Sepsis New/Unexplained Change in Mental Status Sepsis Action Taken by Nursing 07/04/23 18:41 07/04/23 18:50 07/04/23 19:00 Temperature Temperature Source Pulse Rate 86 83 78 Pulse Rate [Left Apical] Pulse Rate from SpO2 Sensor 83 79 Respiratory Rate 24 17 21 Respiratory Effort / Characteristics Respiratory Depth Blood Pressure 122/78 Blood Pressure [Left Arm] Blood Pressure Mean 92 Blood Pressure Mean [Left Arm] Pulse Oximetry 95 94 94 Oxygen Delivery Method Room Air Sepsis Recent Fever Within 48 Hours Sepsis New/Unexplained Change in Mental Status Sepsis Action Taken by Nursing 07/04/23 19:00 07/04/23 19:10 07/04/23 19:30 Temperature Temperature Source Pulse Rate 79 82 Pulse Rate [Left Apical] Pulse Rate from SpO2 Sensor 79 Respiratory Rate 17 14 Respiratory Effort / Characteristics Respiratory Depth Blood Pressure 117/82 129/80 Blood Pressure [Left Arm] Blood Pressure Mean 102 96 Blood Pressure Mean [Left Arm] Pulse Oximetry 96 97 Oxygen Delivery Method Room Air Sepsis Recent Fever Within 48 Hours Sepsis New/Unexplained Change in Mental Status Sepsis Action Taken by Nursing 07/04/23 19:40 07/04/23 20:22 Temperature Temperature Source Pulse Rate 84 77 Pulse Rate [Left Apical] Pulse Rate from SpO2 Sensor Respiratory Rate 17 12 Respiratory Effort / Characteristics Respiratory Depth Blood Pressure 122/79 122/79 Blood Pressure [Left Arm] Blood Pressure Mean 93 93 Blood Pressure Mean [Left Arm] Pulse Oximetry 91 98 Oxygen Delivery Method Room Air Sepsis Recent Fever Within 48 Hours Sepsis New/Unexplained Change in Mental Status Sepsis Action Taken by Nursing Laboratory Data 07/04/23 16:30 07/04/23 16:30 Lab Results 07/04/23 07/04/23 07/04/23 Range/Units 16:28 16:30 17:47 WBC 7.54 (4.8-10.8) K/ul RBC 4.87 (4.70-6.10) M/uL Hgb 16.4 (14.0-18.0) g/dl Hct 46.0 (42.0-52.0) % MCV 94.5 (80.0-100.0) fL MCH 33.7 (25.0-34.0) pg MCHC 35.7 (32.0-36.0) g/dL RDW Std Deviation 45.2 (36.4-46.3) fL RDW Coeff of Mandie 13.1 (11.5-14.5) % Plt Count 287 (130-400) K/uL MPV 8.9 L (9.4-12.4) fL Immature Gran % (Auto) 1.2 % Neut % (Auto) 65.9 % Lymph % (Auto) 12.7 % [place] % (Auto) 16.6 % Eos % (Auto) 2.3 % Baso % (Auto) 1.3 % Neut # (Auto) 4.97 (1.40-6.50) K/uL Lymph # (Auto) 0.96 L (1.20-3.40) K/uL Flag[place] # (Auto) 1.25 H (0.11-0.59) K/uL Eos # (Auto) 0.17 (0.00-0.50) K/uL Baso # (Auto) 0.10 (0.00-0.20) K/uL Immature Gran # (Auto) 0.09 (0.01-0.20) K/uL PT 10.9 (9.0-12.0) Seconds INR 1.0 (0.9-1.1) APTT 31.5 H (21.0-31.0) Seconds PTT Ratio 1.1 Sodium 131 L (136-145) mmol/L Potassium 5.3 H (3.5-5.1) mmol/L Chloride 96 L (98-107) mmol/L Carbon Dioxide 23 (21-32) mmol/L Anion Gap 12 H (3-11) BUN 16 (6-23) mg/dl Creatinine 1.00 (0.6-1.4) mg/dl Est Cr Clr Drug Dosing 83.6 ml/min Est GFR ( Amer) 86.8 ml/min Est GFR (Non-Af Amer) 74.9 ml/min BUN/Creatinine Ratio 16.0 (10-20) Glucose 98 (70-99(Fasting)) mg/dl Calcium 9.8 (8.6-10.3) mg/dl Total Bilirubin 1.1 H (0.2-1.0) mg/dl AST 63 H (13-39) U/L ALT 57 H (7-52) U/L Alkaline Phosphatase 84 (34-104) U/L Troponin I High Sens 15.5 (0-20) pg/ml Total Protein 8.1 (6.0-8.3) gm/dl Albumin 4.2 (3.4-5.0) gm/dl Globulin 3.9 (2.5-4.0) gm/dl Albumin/Globulin Ratio 1.1 (0.9-2) Urine Color Dark Yellow Urine Appearance Cloudy A (Clear) Urine pH >= 9.0 H (4.5-7.5) Ur Specific Merom 1.026 (1.000-1.030) Urine Protein 3+ H (Negative) Urine Glucose (UA) Negative (Negative) Urine Ketones 2+ H (Negative) Urine Blood Trace H (Negative) Urine Nitrite Positive A (Negative) Urine Bilirubin 1+ H (Negative) Urine Urobilinogen Negative (Negative) Ur Leukocyte Esterase 3+ H (Negative) Urine WBC (Auto) 10-30 H (0-5) /hpf Urine RBC (Auto) 5-10 H (0-4) /hpf U Hyaline Cast (Auto) 5-10 H (0-5) /lpf U Epithel Cells (Auto) >30 H (0-5) /lpf Urine Bacteria (Auto) 2+ H (Negative) Ur Renal Epithelial Cell Not Reportable Triple Phos Crystals Present A (None Prsent) SARS-CoV-2 (PCR) NEGATIVE (Negative) Influenza Type A (PCR) Negative (Neg) Influenza Type B (PCR) Negative (Neg) RSV (RT-PCR) Negative (Neg) Administered Medications Discontinued Medications Cefepime HCl (Maxipime) 2,000 mg in 20 mls @ 5 mls/min IV NOW STA; Protocol Stop: 07/04/23 19:23 Last Admin: 07/04/23 19:28 Dose: 5 mls/min Documented By: STEPHEN Acetaminophen (Ofirmev) 1,000 mg in 100 mls @ 400 mls/hr IV NOW STA Stop: 07/04/23 20:44 Last Infusion: 07/04/23 21:04 Dose: Infused Documented By: Admin: 07/04/23 20:45 Dose: 400 mls/hr Documented By: STEPHEN Lorazepam (Lorazepam 1 Mg Tab) 1 mg SL NOW STA Stop: 07/04/23 19:34 Last Admin: 07/04/23 19:36 Dose: 1 mg Documented By: STEPHEN Imaging Data Radiologist's Impression: Chest X-Ray 07/04/23 15:51 XR chest 1V not portable HISTORY: 72 years-old Male asthma acute shortness of breath COMPARISON: 08/02/2022 TECHNIQUE: AP view of the chest FINDINGS: Cardiac silhouette is enlarged. Eventration of the right hemidiaphragm. No pneumothorax, large pleural effusion or overt pulmonary edema. Mild left basilar densities suggest atelectasis. Bones appear grossly intact. IMPRESSION: Cardiomegaly without acute process. ACT 112: Negative or not required by law. The above report was generated using voice recognition software. It may contain grammatical, syntax or spelling errors. Electronically signed by: Mike Carter M.D. 07/04/2023 5:46 PM Discharge Plan Visit Data Chief Complaint: Referred by Doctor Stated Complaint: REF BY ED Provider: Fazal Mcgregor Discharge Problem: Abdominal discomfort, Hyperkalemia, Weakness, UTI (urinary tract infection) Discharge Instructions Interventions: ED Discharge Assessment Last Done: 07/04/23 21:15 Discharge Problem: UTI (urinary tract infection) Qualifiers: Urinary tract infection type: site unspecified Hematuria presence: with hematuria Qualified Code(s): N39.0 - Urinary tract infection, site not specified ; R31.9 - Hematuria, unspecified
[2023-07-04 16:57] LABS: Basophils % (auto) 1.3 %; Eosinophils # (auto) 0.17 K/uL (0.00-0.50); Eosinophils % (auto) 2.3 %; Hemoglobin 16.4 g/dl (14.0-18.0); Immature Granulocytes # (auto) 0.09 K/uL (0.01-0.20); Immature Granulocytes % (auto) 1.2 %; Lymphocytes # (auto) 0.96 K/uL (1.20-3.40); Lymphocytes % (auto) 12.7 %; Mean Corpuscular Hemoglobin 33.7 pg (25.0-34.0); Mean Corpuscular Hgb Conc 35.7 g/dL (32.0-36.0); Mean Corpuscular Volume 94.5 fL (80.0-100.0); Mean Platelet Volume 8.9 fL (9.4-12.4); Monocytes # (auto) 1.25 K/uL (0.11-0.59); Monocytes % (auto) 16.6 %; Neutrophils # (auto) 4.97 K/uL (1.40-6.50); Neutrophils % (auto) 65.9 %; Platelet Count 287 K/uL (130-400); RDW Coefficient of Variation 13.1 % (11.5-14.5); RDW Standard Deviation 45.2 fL (36.4-46.3); Red Blood Count 4.87 M/uL (4.70-6.10); White Blood Count 7.54 K/ul (4.8-10.8)
[2023-07-04 17:16] LABS: Albumin Globulin Ratio 1.1 (0.9-2); Albumin Level 4.2 gm/dl (3.4-5.0); Bilirubin,Total 1.1 mg/dl (0.2-1.0); Calcium 9.8 mg/dl (8.6-10.3); Creatinine Clr Calc Pharmacy 83.6 ml/min; Est GFR (African American) 86.8 ml/min; Est GFR (Non-African American) 74.9 ml/min; Globulin 3.9 gm/dl (2.5-4.0); Potassium 5.3 mmol/L (3.5-5.1); Total Protein 8.1 gm/dl (6.0-8.3)
[2023-07-04 17:22] LABS: Influenza A virus by PCR Negative (Neg); Influenza B virus by PCR Negative (Neg); RSV by PCR Negative (Neg); SARS CoV2 RNA(COVID-19) Ceph NEGATIVE (Negative)
[2023-07-04 17:23] LABS: Troponin I High Sensitivity 15.5 pg/ml (0-20)
[2023-07-04 17:26] LABS: Partial Thromboplastin Ratio 1.1; Partial Thromboplastin Time 31.5 Seconds (21.0-31.0); Prothrombin Time 10.9 Seconds (9.0-12.0)
--- NOTE | 2023-07-04 17:48 | XRay Report ---
XR chest 1V not portable HISTORY: 72 years-old Male asthma acute shortness of breath COMPARISON: 08/02/2022 TECHNIQUE: AP view of the chest FINDINGS: Cardiac silhouette is enlarged. Eventration of the right hemidiaphragm. No pneumothorax, large pleura l effusion or overt pulmonary edema. Mild left basilar densities suggest atelectasis. Bones appear gr ossly intact. IMPRESSION: Cardiomegaly without acute process. ACT 112: Negative or not required by law. The above report was generated using voice recognition software. It may contain grammatical, syntax o r spelling errors. Electronically signed by: Mike Carter M.D. 07/04/2023 5:46 PM
[2023-07-04 18:25] LABS: Appearance Urine Cloudy (Clear); Bacteria Urine Automated 2+ (Negative); Blood Urine Trace (Negative); Color Urine Dark Yellow; Epithelial Cell Urine Auto >30 /lpf (0-5); Glucose Urine UA Negative (Negative); Ketones Urine 2+ (Negative); Leukocyte Esterase Urine 3+ (Negative); Nitrite Urine Positive (Negative); Specific Gravity Urine 1.026 (1.000-1.030); Urobilinogen Urine Negative (Negative); pH Urine >= 9.0 (4.5-7.5)
[2023-07-04 18:39] LABS: Bilirubin Urine 1+ (Negative); Protein Urine 3+ (Negative)
[2023-07-04 18:53] LABS: Triple Phosphate Crystal Urine Present (None Prsent)
[2023-07-04] MEDS ORDERED: CEFEPIME 2,000 MG/20 ML VIAL IV STA (19:20)
[2023-07-04] MEDS ORDERED: LORazepam 1 MG TAB SL STA (19:33)
[2023-07-04] MEDS ORDERED: ACETAMINOPHEN 1,000 MG/100 ML VIAL IV STA (20:30)
--- NOTE | 2023-07-04 20:42 | Electrocardiogram Report ---
Test Reason : Blood Pressure : / mmHG Vent. Rate : 087 BPM Atrial Rate : 087 BPM P-R Int : 148 ms QRS Dur : 084 ms QT Int : 366 ms P-R-T Axes : 048 -02 007 degrees QTc Int : 440 ms Sinus rhythm with Premature atrial complexes Nonspecific ST abnormality Abnormal ECG When compared with ECG of 02-AUG-2022 12:42, Premature atrial complexes are now Present Nonspecific T wave abnormality now evident in Inferior leads Confirmed by Tyler Jerry ([id number]) on 07/04/2023 8:42:07 PM Referred By: Confirmed By:Gagan Jerry
--- NOTE | 2023-07-04 20:44 | History & Physical Report ---
Date of Service July 04, 2023 Assessment & Plan (1) Catheter-associated urinary tract infection: Plan: 72yo male with history of bladder outlet obstruction secondary to stricture disease, atonic bladder, suprapubic catheter in place with recurrent UTIs presenting with presumed UTI. Patient is afebrile, HD stable and non-toxic in appearance. Labs are largely unremarkable. UA with cloudy urine, pH >9, 3+ protein 2+ ketones, blood, nitrites, LE, casts as well as triple phosphate crystals. Crystals likely secondary to urease producing organism - Pseudomonas - can account for the sediment he was noting in his weinstein bag. He has no history of stones. Crystals + pH >9 raises some concern for presence of struvite stone. -Admit to medical -Check CT abdomen to look for stones -Follow urine cultures -Exchange suprapubic catheter -Cefepime 2gm IV q12h -Tylenol PRN -Zofran PRN -Oxycodone PRN pain -Urology consultation appreciated (2) Dysphagia: Plan: Patient reports some episodes of dysphagia - difficult time swallowing particular foods like rice. He denies GERD symptoms. Possible esophageal dysmotility. He may benefit from an outpatient workup History of Present Illness Chief Complaint: UTI Primary Care Provider: DO Lito Romero Jose is a 72yo male with history of bladder outlet obstruction due to stricture disease with suprapubic catheter in place, recurrent Pseudomonas UTIs presenting with UTI symptoms. Patient reports symptoms have been vague and ongoing for approximately two months with acute worsening over the last several days. He reports generalized weakness and fatigue with difficulty getting up and out of bed to perform his ADLs. He has lower abdominal pain as well as pain and drainage at his suprapubic catheter insertion point. He has had some difficulty emptying his urinary bag due to increased amount of sediment in the bag which occasionally blocks the tubing. He has had some nausea and non-bloody/non-bilious vomiting as well as decreased oral intake and chills. He reports losing 12# over the last week. Prior urine cultures POSITIVE for Pseudomonas aeruginosa (most recently isolated from culture on 01/23/23 - Resistant to Levaquin and Cipro). He has had yeast in the urine as well. As a separate issue, patient reports episodes of difficulty swallowing and food getting stuck. This happens frequently with rice. He denies pain with swallowing. Denies GERD symptoms. In the ER he is afebrile, HD stable, non-toxic in appearance ER Course: Tylenol 1gm IV Lorazepam 1mg SL Cefepime 2gm IV (19:28) Allergies Allergy/AdvReac Type Severity Reaction Status Date / Time No Known Allergies Allergy Verified 07/04/23 17:17 Home Medications Medication Instructions Recorded Confirmed Type ascorbate calcium (vitamin C) 500 500 mg PO QAM 03/22/19 07/04/23 History mg tablet vitamin B complex 1 cap PO QAM 03/22/19 07/04/23 History Lactobacillus acidophilus 10 1 cell PO QAM 11/09/19 07/04/23 History billion cell capsule (Probiotic) multivitamin 1 tab PO QAM 10/15/20 07/04/23 History aspirin 81 mg tablet,delayed 81 mg PO QAM 07/11/21 07/04/23 History release (Adult Low Dose Aspirin) cholecalciferol (vitamin D3) 25 1,000 unit PO QAM 10/16/21 07/04/23 History mcg (1,000 unit) capsule omega 7-dpd-mzw-fish oil 1,000 mg 1 cap PO QAM 06/19/22 07/04/23 History (120 mg-180 mg) capsule (Fish Oil) vitamin E (dl, acetate) 90 mg (200 90 mg PO QAM 07/21/22 07/04/23 History unit) capsule tramadol 50 mg tablet 50 mg PO DAILY #30 tabs 06/23/23 07/04/23 Rx amitriptyline 50 mg tablet 50 mg PO HS 07/04/23 07/04/23 History duloxetine 60 mg capsule,delayed 60 mg PO QAM 07/04/23 07/04/23 History release Past Med/Surg History Medical History History of UTI Recurrent hx, pseudomonas on recent urine culture > rx fosfomycin by urology BCC (basal cell carcinoma) Situational depression r/t intermittent severe UTI Dupuytren's contracture of both hands Obesity Suprapubic catheter Current Basal cell carcinoma of back History of COVID-19 09/2020- fatigue, loss of taste and smell > resolved Asthma Hepatic steatosis Bladder outlet obstruction Atonic bladder with suprapubic catheter placement Chronic back pain BPH (benign prostatic hyperplasia) Surgical History History of urologic surgery Medtronic Interstim placed 06/18/22 at [place]- later removed secondary to infection H/O ventral hernia repair Robotic Laparoscopic Ventral Hernia Repair with Mesh, Transabdominal pre peritoneal History of surgery suprapubic cath placed @ [facility] [place] Hx of biopsy Back Mass Wide Local Excision (11/20/21): Grade view 2, MAC#3, ETT 7.5 at [facility] [place] History of cystoscopy Direct Visual Internal Urethrotomy Hx of biopsy 10/29/2021: lesion on his back punch biopsy Dr. Perez in office History of ureter repair stricture History of basal cell carcinoma (BCC) excision back H/O dilation of urethra x3 S/P tonsillectomy Family History Mother Alcohol abuse Bone cancer Dementia Breast cancer She age 85 Uterine cancer Ovarian cancer Brother Alcohol abuse Brother Depression - suicide. Father Dementia Began after open heart surgery age 89. Still living as of 10/2019. born 1923 Heart disease valvular Other No family history of adverse response to anesthesia Denies family history of Prostate cancer Myocardial infarction Lung cancer Colorectal cancer Stroke Social History Smoking Status: Former smoker Age Started Using Tobacco: 21; Age Quit Using Tobacco: 26; Second Hand Exposure: No; Do You Dip or Chew Tobacco: No; Hx Alcohol Use: Yes Alcohol type: wine Alcohol Intake Frequency: 4 or More x per/Week Hx Substance Use: No Preferred Language: Kyrgyz Communication Ability: Effective Visual Impairment: Diminished Hearing Ability: Normal Pharmacy Care Coordinator Required: No Beliefs That Will Affect Care: None marital status: Current Living Situation: Spouse Current Living Situation Comment: current occupational status: retired How many Children do You have: 1 Feels Safe at Home: Yes Childhood Exposure to Second-Hand Smoke: Yes Diet: regular caffeine: Yes Dental Care, Regularly: Yes Physical Activity Frequency: 3-4 Times per Week Physical Activity Frequency Comment: walk Seatbelt Use: always Sunscreen Use: Yes Do you think of yourself as: straight/heterosexual Assistive Devices: Glasses Review of Systems Review of Systems: All systems reviewed & are unremarkable except as noted in HPI & below Physical Exam Physical Exam: General: patient resting comfortably, NAD, non-toxic in appearance, AA&O x 4 Skin: warm, dry, intact, no rashes or lesions HEENT: NC/AT, PERRL, EOMI, anicteric sclera, conjunctiva without injection, external ear normal to inspection and nontender, nares patent, dry mucus membranes, dentition intact, no oropharyngeal lesions, neck supple, trachea midline, no LAD, no thyromegaly, no JVD Heart: +S1/S2, regular, no m/r/g Lungs: equal air entry bilaterally, no rales/rhonchi/wheezes Abd: +BS, soft, tender in the suprapubic region without rebound/guarding/peritonitis, suprapubic catheter in place with small amount of purulent drainage at insertion site. Right leg bag in place with dark, cloudy lele colored urine with considerable amount of sediment in the bag Ext: warm, 2+ pulses in UE/LE bilaterally, no clubbing/cyanosis or edema Neuro: nonfocal, patient AA&O x 4, speech intact, no facial droop, moving all extremities on command with equal strength 5/5 Results & Data Results & Data Vital Signs (Past 12 Hours) Vital Signs Temp Pulse Pulse Resp BP BP Pulse Ox 07/04/23 20:22 77 12 122/79 98 07/04/23 19:40 84 17 122/79 91 07/04/23 19:30 82 14 129/80 97 07/04/23 19:10 79 17 96 07/04/23 19:00 117/82 07/04/23 19:00 78 21 94 07/04/23 18:50 83 17 94 07/04/23 18:41 86 24 122/78 95 07/04/23 18:40 89 18 131/82 94 07/04/23 18:40 86 18 122/78 96 07/04/23 18:00 85 20 117/83 94 07/04/23 17:32 86 07/04/23 17:29 87 12 123/95 98 07/04/23 15:46 36.5 C 113 H 18 118/77 94 O2 Del Method 07/04/23 20:22 Room Air 07/04/23 19:40 07/04/23 19:30 Room Air 07/04/23 19:10 07/04/23 19:00 07/04/23 19:00 07/04/23 18:50 07/04/23 18:41 Room Air 07/04/23 18:40 Room Air 07/04/23 18:40 Room Air 07/04/23 18:00 Room Air 07/04/23 17:32 07/04/23 17:29 Room Air 07/04/23 15:46 Room Air Laboratory Results Laboratory Results WBC 7.54 K/ul (4.8-10.8) 07/04/23 16:30 RBC 4.87 M/uL (4.70-6.10) 07/04/23 16:30 Hgb 16.4 g/dl (14.0-18.0) 07/04/23 16:30 Hct 46.0 % (42.0-52.0) 07/04/23 16:30 MCV 94.5 fL (80.0-100.0) 07/04/23 16:30 MCH 33.7 pg (25.0-34.0) 07/04/23 16:30 MCHC 35.7 g/dL (32.0-36.0) 07/04/23 16:30 RDW Std Deviation 45.2 fL (36.4-46.3) 07/04/23 16:30 RDW Coeff of Mandie 13.1 % (11.5-14.5) 07/04/23 16:30 Plt Count 287 K/uL (130-400) 07/04/23 16:30 MPV 8.9 fL (9.4-12.4) L 07/04/23 16:30 Immature Gran % (Auto) 1.2 % 07/04/23 16:30 Neut % (Auto) 65.9 % 07/04/23 16:30 Lymph % (Auto) 12.7 % 07/04/23 16:30 [place] % (Auto) 16.6 % 07/04/23 16:30 Eos % (Auto) 2.3 % 07/04/23 16:30 Baso % (Auto) 1.3 % 07/04/23 16:30 Neut # (Auto) 4.97 K/uL (1.40-6.50) 07/04/23 16:30 Lymph # (Auto) 0.96 K/uL (1.20-3.40) L 07/04/23 16:30 [place] # (Auto) 1.25 K/uL (0.11-0.59) H 07/04/23 16:30 Eos # (Auto) 0.17 K/uL (0.00-0.50) 07/04/23 16:30 Baso # (Auto) 0.10 K/uL (0.00-0.20) 07/04/23 16:30 Immature Gran # (Auto) 0.09 K/uL (0.01-0.20) 07/04/23 16:30 PT 10.9 Seconds (9.0-12.0) 07/04/23 16:30 INR 1.0 (0.9-1.1) 07/04/23 16:30 APTT 31.5 Seconds (21.0-31.0) H 07/04/23 16:30 PTT Ratio 1.1 07/04/23 16:30 Sodium 131 mmol/L (136-145) L 07/04/23 16:30 Potassium 5.3 mmol/L (3.5-5.1) H 07/04/23 16:30 Chloride 96 mmol/L (98-107) L 07/04/23 16:30 Carbon Dioxide 23 mmol/L (21-32) 07/04/23 16:30 Anion Gap 12 (3-11) H 07/04/23 16:30 BUN 16 mg/dl (6-23) 07/04/23 16:30 Creatinine 1.00 mg/dl (0.6-1.4) 07/04/23 16:30 Est Cr Clr Drug Dosing 83.6 ml/min 07/04/23 16:30 Est GFR ( Amer) 86.8 ml/min 07/04/23 16:30 Est GFR (Non-Af Amer) 74.9 ml/min 07/04/23 16:30 BUN/Creatinine Ratio 16.0 (10-20) 07/04/23 16:30 Glucose 98 mg/dl (70-99(Fasting)) 07/04/23 16:30 Calcium 9.8 mg/dl (8.6-10.3) 07/04/23 16:30 Total Bilirubin 1.1 mg/dl (0.2-1.0) H 07/04/23 16:30 AST 63 U/L (13-39) H 07/04/23 16:30 ALT 57 U/L (7-52) H 07/04/23 16:30 Alkaline Phosphatase 84 U/L (34-104) 07/04/23 16:30 Troponin I High Sens 15.5 pg/ml (0-20) 07/04/23 16:30 Total Protein 8.1 gm/dl (6.0-8.3) 07/04/23 16:30 Albumin 4.2 gm/dl (3.4-5.0) 07/04/23 16:30 Globulin 3.9 gm/dl (2.5-4.0) 07/04/23 16:30 Albumin/Globulin Ratio 1.1 (0.9-2) 07/04/23 16:30 Urine Color Dark Yellow 07/04/23 17:47 Urine Appearance Cloudy (Clear) A 07/04/23 17:47 Urine pH >= 9.0 (4.5-7.5) H 07/04/23 17:47 Ur Specific [place] 1.026 (1.000-1.030) 07/04/23 17:47 Urine Protein 3+ (Negative) H 07/04/23 17:47 Urine Glucose (UA) Negative (Negative) 07/04/23 17:47 Urine Ketones 2+ (Negative) H 07/04/23 17:47 Urine Blood Trace (Negative) H 07/04/23 17:47 Urine Nitrite Positive (Negative) A 07/04/23 17:47 Urine Bilirubin 1+ (Negative) H 07/04/23 17:47 Urine Urobilinogen Negative (Negative) 07/04/23 17:47 Ur Leukocyte Esterase 3+ (Negative) H 07/04/23 17:47 Urine WBC (Auto) 10-30 /hpf (0-5) H 07/04/23 17:47 Urine RBC (Auto) 5-10 /hpf (0-4) H 07/04/23 17:47 U Hyaline Cast (Auto) 5-10 /lpf (0-5) H 07/04/23 17:47 U Epithel Cells (Auto) >30 /lpf (0-5) H 07/04/23 17:47 Urine Bacteria (Auto) 2+ (Negative) H 07/04/23 17:47 Ur Renal Epithelial Cell Not Reportable 07/04/23 17:47 Triple Phos Crystals Present (None Prsent) A 07/04/23 17:47 SARS-CoV-2 (PCR) NEGATIVE (Negative) 07/04/23 16:28 Influenza Type A (PCR) Negative (Neg) 07/04/23 16:28 Influenza Type B (PCR) Negative (Neg) 07/04/23 16:28 RSV (RT-PCR) Negative (Neg) 07/04/23 16:28 Impressions Chest X-Ray 07/04/23 15:51 XR chest 1V not portable HISTORY: 72 years-old Male asthma acute shortness of breath COMPARISON: 08/02/2022 TECHNIQUE: AP view of the chest FINDINGS: Cardiac silhouette is enlarged. Eventration of the right hemidiaphragm. No pneumothorax, large pleural effusion or overt pulmonary edema. Mild left basilar densities suggest atelectasis. Bones appear grossly intact. IMPRESSION: Cardiomegaly without acute process. ACT 112: Negative or not required by law. The above report was generated using voice recognition software. It may contain grammatical, syntax or spelling errors. Electronically signed by: Mike Carter M.D. 07/04/2023 5:46 PM ECG Additional Comments: EKG with SR at 87bpm, PACs present, QP=587, QRS=84, UQr=008, no acute ischemic changes PG Care Time/CCT Total # of Minutes Spent Total Time Spent with Patient: Total time spent is greater than 50% in coordination of care (as documented) at patient's floor/unit and/or counseling patient: Coding Level of Care Code 18330 INT INP/OBS CARE 2/55MIN Diagnoses Catheter-associated urinary tract infection T83.511A; N39.0 Encounter type: initial encounter Indwelling urinary catheter type: unspecified Dysphagia R13.10 (1) Catheter-associated urinary tract infection Encounter type: initial encounter Indwelling urinary catheter type: u nspecified Qualified Code(s): T83.511A - Infection and inflammatory reaction due to indwelling urethral catheter, initial encounter; N39.0 - Urinary tract infection, site not specified
[2023-07-04] MEDS ORDERED: ONDANSETRON INJ 2 MG/ML 2 ML VIAL IV PRN (21:16)
[2023-07-04 21:37] LABS: Phosphorus 3.1 mg/dl (2.5-4.9)
[2023-07-04 21:53] LABS: Thyroid Stimulating Hormone 1.378 uIu/ml (0.300-4.500)
[2023-07-04] MEDS ORDERED: Nursing to Pharmacy Communication SCH (22:00)
[2023-07-04] MEDS: LACTATED RINGER'S 1,000 ML IV SCH (22:22)
[2023-07-04] MEDS: AMITRIPTYLINE HCL 50 MG TAB PO SCH (22:22)
--- NOTE | 2023-07-04 23:08 | CT Scan Report ---
Exam(s): CT ABDOMEN + PELVIS Without Contrast EXAM: CT Abdomen and Pelvis Without Intravenous Contrast CLINICAL HISTORY: Reason for exam: assess for stones. TECHNIQUE: Axial computed tomography images of the abdomen and pelvis without intravenous contrast. CTDI is 28.1 mGy and DLP is 1280.24 mGy-cm. Automated exposure control was utilized for the study. A dose lowering technique was utilized adhering to the principles of ALARA. COMPARISON: No relevant prior studies available. FINDINGS: Lung bases: Unremarkable. No mass. No consolidation. Mediastinum: Small hiatal hernia. ABDOMEN: Liver: Hepatic steatosis. Gallbladder and bile ducts: Unremarkable. No calcified stones. No ductal dilation. Pancreas: Unremarkable. No ductal dilation. Spleen: Unremarkable. No splenomegaly. Adrenals: Unremarkable. No mass. Kidneys and ureters: Unremarkable. No obstructing stones. No hydronephrosis. Stomach and bowel: Diverticulosis, without acute diverticulitis. No small bowel obstruction. No free intraperitoneal air. PELVIS: Appendix: Normal appendix. Bladder: Suprapubic catheter terminates in the urinary bladder which is decompressed. No stones. Reproductive: Unremarkable as visualized. ABDOMEN and PELVIS: Intraperitoneal space: Unremarkable. No free air. No significant fluid collection. Bones/joints: Degenerative changes of the spine. No acute fracture. No dislocation. Soft tissues: Unremarkable. Vasculature: Atherosclerotic changes of the aorta. No abdominal aortic aneurysm. Lymph nodes: Unremarkable. No enlarged lymph nodes. IMPRESSION: 1. Hepatic steatosis. 2. Suprapubic catheter terminates in the urinary bladder which is decompressed. 3. Diverticulosis, without acute diverticulitis. No small bowel obstruction. No free intraperitoneal air. Electronically signed by: Luca Wolf MD 07/04/23 23:06 PM
[2023-07-05 05:33] LABS: Hematocrit (blood only) 42.9 % (42.0-52.0); Hemoglobin 15.2 g/dl (14.0-18.0); Mean Corpuscular Hemoglobin 33.4 pg (25.0-34.0); Mean Corpuscular Hgb Conc 35.4 g/dL (32.0-36.0); Mean Corpuscular Volume 94.3 fL (80.0-100.0); Mean Platelet Volume 9.5 fL (9.4-12.4); Platelet Count 283 K/uL (130-400); RDW Coefficient of Variation 13.2 % (11.5-14.5); RDW Standard Deviation 45.6 fL (36.4-46.3); Red Blood Count 4.55 M/uL (4.70-6.10); White Blood Count 5.81 K/ul (4.8-10.8)
[2023-07-05 05:52] LABS: Albumin Level 3.7 gm/dl (3.4-5.0); BUN Creatinine Ratio 17.4 (10-20); Bilirubin Direct 0.3 mg/dl (0-0.2); Bilirubin,Total 1.3 mg/dl (0.2-1.0); Calcium 9.3 mg/dl (8.6-10.3); Creatinine Clr Calc Pharmacy 97.2 ml/min; Est GFR (African American) 100.4 ml/min; Est GFR (Non-African American) 86.6 ml/min; Potassium 4.4 mmol/L (3.5-5.1)
[2023-07-05] MEDS: LACTATED RINGER'S 1,000 ML IV SCH (05:53)
[2023-07-05] MEDS: oxyCODONE HCL IR 5 MG TAB (IMMEDIATE RELEASE) PO PRN ×4 (05:58→18:15)
[2023-07-05] MEDS: ASPIRIN 81 MG ECTAB PO SCH (08:27)
[2023-07-05] MEDS: DULoxetine HCL 60 MG CAP PO SCH (08:28)
[2023-07-05] MEDS: HEPARIN SOD 5,000 UNIT/0.5 ML VIAL SQ SCH ×2 (08:28→20:41)
[2023-07-05] MEDS: PANTOprazole 40 MG TAB PO SCH (08:28)
[2023-07-05] MEDS: CEFEPIME 2,000 MG in SYRINGE 0 ML IV SCH ×2 (08:28→19:59)
--- NOTE | 2023-07-05 09:05 | Urology Consultation ---
Date of Consultation July 05, 2023 Assessment & Plan (1) UTI (urinary tract infection): (2) Urethral stricture: Plan 72-year-old male with a history of bulbar urethral stricture managed with a chronic SP tube who was admitted to the hospital 07/04/2023 for a suspected UTI. Next No acute urologic intervention warranted Continue broad-spectrum antibiotics. Follow-up cultures. Recommend total antibiotic duration of 10 to 14 days Ensure proper work-up of other etiologies as patient will always grow out bacteria in urine as he is chronically colonized Urology to sign off. Patient has follow-up for SP change with urology on 07/08/2023. This can be adjusted if patient is still hospitalized. History of Present Illness Attending Physician: Riki Grajeda MD History of Present Illness 72-year-old male who follows with Dr. Silva for history of a bulbar urethral stricture which is currently managed with an SP tube. He last saw Dr. Silva on 06/03/2023 where he performed a cystoscopy which showed a bulbar urethral stricture. He was admitted to the hospital on 07/04/2023 for a UTI. Patient reported generalized weakness and fatigue. He has been afebrile with stable vitals. Independently reviewed labs which showed today a white blood cell count of 5.8, hemoglobin of 15.2, creatinine of 0.86 and a urinalysis from yesterday was grossly positive but this is expected with a chronic catheter in place. Urine culture is pending. Patient was begun on cefepime by the ED. CT scan of the abdomen and pelvis was performed and I independently reviewed this does not show any hydronephrosis or nephrolithiasis. SP tube is in appropriate position in the bladder and the bladder is largely decompressed. Allergies Allergy/AdvReac Type Severity Reaction Status Date / Time No Known Allergies Allergy Verified 07/04/23 17:17 Home Medications Medication Instructions Recorded Confirmed Type ascorbate calcium (vitamin C) 500 500 mg PO QAM 03/22/19 07/04/23 History mg tablet vitamin B complex 1 cap PO QAM 03/22/19 07/04/23 History Lactobacillus acidophilus 10 1 cell PO QAM 11/09/19 07/04/23 History billion cell capsule (Probiotic) multivitamin 1 tab PO QAM 10/15/20 07/04/23 History aspirin 81 mg tablet,delayed 81 mg PO QAM 07/11/21 07/04/23 History release (Adult Low Dose Aspirin) cholecalciferol (vitamin D3) 25 1,000 unit PO QAM 10/16/21 07/04/23 History mcg (1,000 unit) capsule omega 2-blu-ytu-fish oil 1,000 mg 1 cap PO QAM 06/19/22 07/04/23 History (120 mg-180 mg) capsule (Fish Oil) vitamin E (dl, acetate) 90 mg (200 90 mg PO QAM 07/21/22 07/04/23 History unit) capsule tramadol 50 mg tablet 50 mg PO DAILY #30 tabs 06/23/23 07/04/23 Rx amitriptyline 50 mg tablet 50 mg PO HS 07/04/23 07/04/23 History duloxetine 60 mg capsule,delayed 60 mg PO QAM 07/04/23 07/04/23 History release Patient History Medical History History of UTI Recurrent hx, pseudomonas on recent urine culture > rx fosfomycin by urology BCC (basal cell carcinoma) Situational depression r/t intermittent severe UTI Dupuytren's contracture of both hands Obesity Suprapubic catheter Current Basal cell carcinoma of back History of COVID-19 09/2020- fatigue, loss of taste and smell > resolved Asthma Hepatic steatosis Bladder outlet obstruction Atonic bladder with suprapubic catheter placement Chronic back pain BPH (benign prostatic hyperplasia) Surgical History History of urologic surgery Medtronic Interstim placed 06/18/22 at [place]- later removed secondary to infection H/O ventral hernia repair Robotic Laparoscopic Ventral Hernia Repair with Mesh, Transabdominal pre peritoneal History of surgery suprapubic cath placed @ [facility] [place] Hx of biopsy Back Mass Wide Local Excision (11/20/21): Grade view 2, MAC#3, ETT 7.5 at [facility] [place] History of cystoscopy Direct Visual Internal Urethrotomy Hx of biopsy 10/29/2021: lesion on his back punch biopsy Dr. Perez in office History of ureter repair stricture History of basal cell carcinoma (BCC) excision back H/O dilation of urethra x3 S/P tonsillectomy Family History Mother Alcohol abuse Bone cancer Dementia Breast cancer She age 85 Uterine cancer Ovarian cancer Brother Alcohol abuse Brother Depression - suicide. Father Dementia Began after open heart surgery age 89. Still living as of 10/2019. born 1923 Heart disease valvular Other No family history of adverse response to anesthesia Denies family history of Prostate cancer Myocardial infarction Lung cancer Colorectal cancer Stroke Social History Smoking Status: Never smoker Age Started Using Tobacco: 21; Age Quit Using Tobacco: 26; Second Hand Exposure: No; Do You Dip or Chew Tobacco: No; Hx Alcohol Use: Yes Alcohol type: wine Alcohol Intake Frequency: 4 or More x per/Week Hx Substance Use: No Preferred Language: Arabic Communication Ability: Effective Visual Impairment: Diminished Hearing Ability: Normal Shoulder Pad Molder Required: No Beliefs That Will Affect Care: None marital status: Current Living Situation: Spouse Current Living Situation Comment: current occupational status: retired How many Children do You have: 1 Feels Safe at Home: Yes Childhood Exposure to Second-Hand Smoke: Yes Diet: regular caffeine: Yes Dental Care, Regularly: Yes Physical Activity Frequency: 3-4 Times per Week Physical Activity Frequency Comment: walk Seatbelt Use: always Sunscreen Use: Yes Do you think of yourself as: straight/heterosexual Assistive Devices: Glasses Review of Systems Review of Systems: 14 point review of systems negative outs lynne of what is listed above in HPI Physical Exam Physical Exam: General: Alert and oriented, no acute distress HEENT: Normocephalic, mucous membranes moist Pulmonary: Nonlabored respirations Abdomen: Nondistended : SP tube draining clear urine, site c/d/i Extremities: Moves all 4 spontaneously Neuro: No gross deficits Skin: Warm, dry, no rashes noted Results & Data Vital Signs (Past 12 Hours) Vital Signs Temp Pulse Pulse Resp BP BP Pulse Ox 07/05/23 05:54 36.6 C 77 16 152/96 H 95 07/05/23 01:09 07/05/23 01:08 36.5 C 60 18 120/81 93 07/04/23 23:03 71 07/04/23 21:40 78 20 115/88 98 O2 Del Method 07/05/23 05:54 Room Air 07/05/23 01:09 Room Air 07/05/23 01:08 Room Air 07/04/23 23:03 07/04/23 21:40 Room Air PG Care Time/CCT Total # of Minutes Spent Total Time Spent with Patient: Total time spent is greater than 50% in coordination of care (as documented) at patient's floor/unit and/or counseling patient: Coding Level of Care Code 04172 INT INP/OBS CARE 255MIN Diagnoses UTI (urinary tract infection) N39.0; R31.9 Hematuria presence: with hematuria Urinary tract infection type: site unspecified Urethral stricture N35.919 Urethral stricture sex-location: male urethra-bulbous (1) UTI (urinary tract infection) Hematuria presence: with hematuria Urinary tract infection type: site unspecified Qualified Code(s): N39.0 - Urinary tract infection, site not specified; R31.9 - Hematuria, unspecified (2) Urethral stricture Urethral stricture sex-location: male urethra-bulbous
--- NOTE | 2023-07-05 11:40 | Hospitalist Progress Note ---
Date of Service July 05, 2023 Assessment & Plan (1) Catheter-associated urinary tract infection: Plan: Chronic suprapubic catheter. Urology consultation appreciated. Previous cultures grew Pseudomonas. Current urine culture and blood cultures are pending. Currently on cefepime, day 2. (2) Dysphagia: Plan: Patient reports some episodes of dysphagia - difficult time swallowing particular foods like rice. He denies GERD symptoms. Possible esophageal dysmotility. He may benefit from an outpatient workup (3) Weakness: Plan: Due to UTI. OT and PT assessments requested. Plan Anticipate eventual discharge back to home within the next several days Admission and Anticipated Discharge Date Admission Date: July 04, 2023 Subjective Alert and oriented. Previous urine cultures grew Pseudomonas. He is now on cefepime, day 2. Urology consultation and recommendations recommended. Blood cultures ordered and pending Review of Systems 2 Review of Systems: Constitutional-no fever or chills ENT-no blurred vision, no double vision, no epistaxis, no sore throat Respiratory-no cough, no wheezing, no shortness of breath Cardiac-no palpitations, no chest pain, no syncope GI-no nausea, vomiting, diarrhea, melena, hematochezia -chronic suprapubic catheter which is more cloudy than usual. No hematuria Musculoskeletal-no joint pain, no muscle tenderness Skin-no bruising, no rashes, no pruritus Neuro-no isolated weakness, no paresthesia, no weakness Psych-no depression, no anxiety Physical Exam 2 Physical Exam: General-alert and oriented x3, no fevers, no chills HEENT-head atraumatic and normocephalic,pupils equal and reactive to light, extraocular muscles intact Neck-no lymphadenopathy or thyromegaly, trachea midline Chest-clear to auscultation percussion. No rales wheezing or rhonchi Cardiac-regular rate and rhythm, normal S1 and S2 Abdomen-normal bowel sounds, nontender, no hepatosplenomegaly GUsuprapubic catheter in place Extremities-no cyanosis, clubbing, or edema Neuro-cranial nerves II through XII intact, motor and sensory function within normal limits, strength symmetrical with generalized weakness, no focal deficits Psych-normal affect, normal mood Results & Data Results & Data Vital Signs (Past 12 Hours) Vital Signs Temp Pulse Resp BP Pulse Ox O2 Del Method 07/05/23 09:18 94 H 20 124/84 94 Room Air 07/05/23 05:54 36.6 C 77 16 152/96 H 95 Room Air 07/05/23 01:09 Room Air 07/05/23 01:08 36.5 C 60 18 120/81 93 Room Air Laboratory Results 07/05/23 04:33 07/05/23 04:33 PG Care Time/CCT Total # of Minutes Spent Total Time Spent with Patient: Total time spent is greater than 50% in coordination of care (as documented) at patient's floor/unit and/or counseling patient: Coding Level of Care Code 52186 SUB INP/OBS CARE 350MIN Diagnoses Catheter-associated urinary tract infection T83.511A; N39.0 Encounter type: initial encounter Indwelling urinary catheter type: unspecified Dysphagia R13.10 Weakness R53.1 (1) Catheter-associated urinary tract infection Encounter type: initial encounter Indwelling urinary catheter type: u nspecified Qualified Code(s): T83.511A - Infection and inflammatory reaction due to indwelling urethral catheter, initial encounter; N39.0 - Urinary tract infection, site not specified
[2023-07-05] MEDS: AMITRIPTYLINE HCL 50 MG TAB PO SCH (20:41)
[2023-07-06 06:27] LABS: Basophils # (auto) 0.05 K/uL (0.00-0.20); Basophils % (auto) 0.8 %; Eosinophils # (auto) 0.34 K/uL (0.00-0.50); Eosinophils % (auto) 5.7 %; Hematocrit (blood only) 42.8 % (42.0-52.0); Hemoglobin 14.7 g/dl (14.0-18.0); Immature Granulocytes # (auto) 0.05 K/uL (0.01-0.20); Immature Granulocytes % (auto) 0.8 %; Lymphocytes # (auto) 0.84 K/uL (1.20-3.40); Mean Corpuscular Hgb Conc 34.3 g/dL (32.0-36.0); Mean Platelet Volume 8.9 fL (9.4-12.4); Monocytes # (auto) 1.08 K/uL (0.11-0.59); Neutrophils # (auto) 3.63 K/uL (1.40-6.50); Neutrophils % (auto) 60.7 %; Platelet Count 251 K/uL (130-400); RDW Coefficient of Variation 13.2 % (11.5-14.5); RDW Standard Deviation 46.6 fL (36.4-46.3); Red Blood Count 4.46 M/uL (4.70-6.10); White Blood Count 5.99 K/ul (4.8-10.8)
[2023-07-06] MEDS: oxyCODONE HCL IR 5 MG TAB (IMMEDIATE RELEASE) PO PRN ×4 (06:35→20:27)
[2023-07-06 06:43] LABS: BUN Creatinine Ratio 12.9 (10-20); Calcium 8.7 mg/dl (8.6-10.3); Creatinine Clr Calc Pharmacy 89.9 ml/min; Est GFR (African American) 94.7 ml/min; Est GFR (Non-African American) 81.7 ml/min; Potassium 4.2 mmol/L (3.5-5.1)
[2023-07-06] MEDS: ASPIRIN 81 MG ECTAB PO SCH (09:07)
[2023-07-06] MEDS: CEFEPIME 2,000 MG in SYRINGE 0 ML IV SCH ×2 (09:07→20:17)
[2023-07-06] MEDS: DULoxetine HCL 60 MG CAP PO SCH (09:07)
[2023-07-06] MEDS: PANTOprazole 40 MG TAB PO SCH (09:08)
[2023-07-06] MEDS: HEPARIN SOD 5,000 UNIT/0.5 ML VIAL SQ SCH ×2 (09:08→20:17)
--- NOTE | 2023-07-06 10:42 | Urology Progress Note ---
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 No acute urologic intervention warranted Continue broad-spectrum antibiotics. Follow-up cultures. Urine culture is not growing anything preliminarily so if this is negative need to work-up other causes of fatigue Urology to sign off. Patient has follow-up for SP change with urology on 07/08/2023. This can be adjusted if patient is still hospitalized. Admission and Anticipated Discharge Date Admission Date: July 04, 2023 Subjective No acute issues overnight. Afebrile with stable vitals. Labs show a white blood cell count of 5.99 and a creatinine of 0.93. Urine culture is prelim pinpoint growth and blood cultures are pending. Patient does not report feeling better as of this morning. Review of Systems Review of Systems: 14 point review of systems negative outs lynne of what is listed above in HPI Physical Exam Physical Exam: General: Alert and oriented, no acute distress HEENT: Normocephalic, mucous membranes moist Pulmonary: Nonlabored respirations Abdomen: Nondistended : SP tube draining lele urine. Extremities: Moves all 4 spontaneously Neuro: No gross deficits Skin: Warm, dry, no rashes noted Results & Data Vital Signs (Past 12 Hours) Vital Signs Temp Pulse Resp BP Pulse Ox O2 Del Method 07/06/23 07:03 36.8 C 87 16 153/95 H 95 Room Air PG Care Time/CCT Total # of Minutes Spent Total Time Spent with Patient: Total time spent is greater than 50% in coordination of care (as documented) at patient's floor/unit and/or counseling patient: Coding Level of Care Code 70362 SUB INP/OBS CARE 2/35MIN Diagnoses Weakness R53.1 Urethral stricture N35.919 Urethral stricture sex-location: male urethra-bulbous (2) Urethral stricture Urethral stricture sex-location: male urethra-bulbous
--- NOTE | 2023-07-06 12:14 | Hospitalist Progress Note ---
Date of Service July 06, 2023 Assessment & Plan (1) Catheter-associated urinary tract infection: Plan: Chronic suprapubic catheter. Urology consultation appreciated. Previous cultures grew Pseudomonas. Urine culture revealed pinpoint growth and is reintubating. Blood cultures negative to date. Currently on cefepime, day 2. (2) Dysphagia: Plan: Patient reports some episodes of dysphagia - difficult time swallowing particular foods like rice. He denies GERD symptoms. Possible esophageal dysmotility. He may benefit from an outpatient workup. Not a significant clinical problem at this time (3) Weakness: Plan: Due to UTI. OT and PT assessments requested. Plan Anticipate eventual discharge back to home within the next several days Admission and Anticipated Discharge Date Admission Date: July 04, 2023 Subjective Alert and oriented. No distress. Blood cultures negative to date. Urine culture reveals pinpoint growth and is really incubating. He remains on cefepime, day 2. Appreciate urology consultation. OT and PT assessments pending. Review of Systems 2 Review of Systems: Constitutional-no fever or chills ENT-no blurred vision, no double vision, no epistaxis, no sore throat Respiratory-no cough, no wheezing, no shortness of breath Cardiac-no palpitations, no chest pain, no syncope GI-no nausea, vomiting, diarrhea, melena, hematochezia -chronic suprapubic catheter which is more cloudy than usual. No hematuria Musculoskeletal-no joint pain, no muscle tenderness Skin-no bruising, no rashes, no pruritus Neuro-no isolated weakness, no paresthesia, no weakness Psych-no depression, no anxiety Physical Exam 2 Physical Exam: General-alert and oriented x3, no fevers, no chills HEENT-head atraumatic and normocephalic,pupils equal and reactive to light, extraocular muscles intact Neck-no lymphadenopathy or thyromegaly, trachea midline Chest-clear to auscultation percussion. No rales wheezing or rhonchi Cardiac-regular rate and rhythm, normal S1 and S2 Abdomen-normal bowel sounds, nontender, no hepatosplenomegaly GUsuprapubic catheter in place Extremities-no cyanosis, clubbing, or edema Neuro-cranial nerves II through XII intact, motor and sensory function within normal limits, strength symmetrical with generalized weakness, no focal deficits Psych-normal affect, normal mood Results & Data Results & Data Vital Signs (Past 12 Hours) Vital Signs Temp Pulse Resp BP Pulse Ox O2 Del Method 07/06/23 07:03 36.8 C 87 16 153/95 H 95 Room Air Laboratory Results 07/06/23 05:42 07/06/23 05:42 PG Care Time/CCT Total # of Minutes Spent Total Time Spent with Patient: Total time spent is greater than 50% in coordination of care (as documented) at patient's floor/unit and/or counseling patient: Coding Level of Care Code 73521 SUB INP/OBS CARE 2/35MIN Diagnoses Catheter-associated urinary tract infection T83.511A; N39.0 Encounter type: initial encounter Indwelling urinary catheter type: unspecified Dysphagia R13.10 Weakness R53.1 (1) Catheter-associated urinary tract infection Encounter type: initial encounter Indwelling urinary catheter type: u nspecified Qualified Code(s): T83.511A - Infection and inflammatory reaction due to indwelling urethral catheter, initial encounter; N39.0 - Urinary tract infection, site not specified
[2023-07-06] MEDS: AMITRIPTYLINE HCL 50 MG TAB PO SCH (20:17)
[2023-07-07] MEDS ORDERED: OPTIRAY 320 500ml IV ONE (00:06)
--- NOTE | 2023-07-07 01:41 | CT Scan Report ---
Exam(s): CTA NECK With Contrast IV Amt: 113 ML OPTIRAY 320 EXAM: CT Angiography Neck With Intravenous Contrast CLINICAL HISTORY: Reason for exam: fall. TECHNIQUE: Routine carotid CT angiography protocol was performed with intravenous contrast. NASCET criteria using the distal ICAs for comparison were used for evaluation of stenoses. CTDI is 37.87 mGy and DLP is 702.46 mGy-cm. Automated exposure control was utilized for the study. A dose lowering technique was utilized adhering to the principles of ALARA. MIP reconstructed images were created and reviewed. CONTRAST: Patient received 113 ML OPTIRAY 320 of IV contrast COMPARISON: None. FINDINGS: VASCULATURE: Right common carotid artery: Unremarkable. No occlusion or significant stenosis. No dissection. Right internal carotid artery: Unremarkable. Extracranial segment is patent with no occlusion or significant stenosis. No dissection. Right external carotid artery: Unremarkable. No occlusion. Right vertebral artery: Unremarkable. No occlusion or significant stenosis. No dissection. Left common carotid artery: Unremarkable. No occlusion or significant stenosis. No dissection. Left internal carotid artery: Unremarkable. Extracranial segment is patent with no occlusion or significant stenosis. No dissection. Left external carotid artery: Unremarkable. No occlusion. Left vertebral artery: Unremarkable. No occlusion or significant stenosis. No dissection. NECK: Bones/joints: Moderate to advanced disc degeneration at C3-4, C5-6 and C6-7 with ankylosis of C4 on C5. Soft tissues: Prominent mediastinal lymph nodes. Prominent cervical lymph nodes. Lung apices: Bronchitis with pneumonitis, which may be of infectious or inflammatory etiologies. CAROTID STENOSIS REFERENCE USING NASCET CRITERIA: % ICA stenosis = (1 - narrowest ICA diameter/diameter of distal cervical ICA) x 100. Mild - <50% stenosis. Moderate - 50-69% stenosis. Severe - 70-94% stenosis. Near occlusion - 95-99% stenosis. Occluded - 100% stenosis. IMPRESSION: Negative CTA neck. Electronically signed by: Annie Coy MD 07/07/23 01:40 AM
--- NOTE | 2023-07-07 01:43 | CT Scan Report ---
Exam(s): CT HEAD Without Contrast EXAM: CT Head Without Intravenous Contrast CLINICAL HISTORY: Reason for exam: fall. TECHNIQUE: Axial computed tomography images of the head/brain without intravenous contrast. CTDI is 15.23 mGy and DLP is 495.6 mGy-cm. Automated exposure control was utilized for the study. A dose lowering technique was utilized adhering to the principles of ALARA. COMPARISON: Comparison made to prior head CT from October 15, 2020. FINDINGS: Brain: Unremarkable. No hemorrhage. Mild nonspecific white matter changes. No edema. Ventricles: Mild ventriculomegaly. Bones/joints: Unremarkable. No acute fracture. Soft tissues: There is mild soft tissue swelling over the left posterior occiput. Sinuses: Chronic ethmoid sinusitis. No acute sinusitis. Mastoid air cells: Unremarkable as visualized. No mastoid effusion. IMPRESSION: No evidence of acute intracranial pathology. Electronically signed by: Annie Coy MD 07/07/23 01:42 AM
[2023-07-07] MEDS: oxyCODONE HCL IR 5 MG TAB (IMMEDIATE RELEASE) PO PRN ×5 (03:19→21:34)
[2023-07-07 06:13] LABS: Basophils # (auto) 0.05 K/uL (0.00-0.20); Basophils % (auto) 0.8 %; Eosinophils # (auto) 0.51 K/uL (0.00-0.50); Hematocrit (blood only) 42.5 % (42.0-52.0); Hemoglobin 14.4 g/dl (14.0-18.0); Immature Granulocytes # (auto) 0.06 K/uL (0.01-0.20); Immature Granulocytes % (auto) 0.9 %; Lymphocytes # (auto) 0.87 K/uL (1.20-3.40); Lymphocytes % (auto) 13.6 %; Mean Corpuscular Hemoglobin 32.5 pg (25.0-34.0); Mean Corpuscular Hgb Conc 33.9 g/dL (32.0-36.0); Mean Corpuscular Volume 95.9 fL (80.0-100.0); Monocytes # (auto) 0.98 K/uL (0.11-0.59); Monocytes % (auto) 15.3 %; Neutrophils # (auto) 3.92 K/uL (1.40-6.50); Neutrophils % (auto) 61.4 %; Platelet Count 250 K/uL (130-400); RDW Coefficient of Variation 13.1 % (11.5-14.5); RDW Standard Deviation 46.4 fL (36.4-46.3); Red Blood Count 4.43 M/uL (4.70-6.10); White Blood Count 6.39 K/ul (4.8-10.8)
--- NOTE | 2023-07-07 06:27 | Communication Note ---
Date of Service: July 07, 2023 Notified by nursing at approximately 11 PM on 06/05/2023 regarding patient who had fallen and subsequently oriented to location or time. Went to evaluate patient, who was oriented to self and location only but not time (responded with "" and "June" when asked for day of the week and month). He denied headache, vision changes, dizziness, or loss of consciousness. Ordered noncontrast CT head and CTA neck. CT head appears negative per my read. Also ordered neurochecks every hour until after CT head results. Resident Activity Tracking Resident Involvement: Resident Care Provided Care Provided: [facility]
[2023-07-07 06:30] LABS: BUN Creatinine Ratio 15.1 (10-20); Calcium 8.7 mg/dl (8.6-10.3); Creatinine Clr Calc Pharmacy 89.9 ml/min; Est GFR (African American) 94.7 ml/min; Est GFR (Non-African American) 81.7 ml/min; Potassium 4.1 mmol/L (3.5-5.1)
[2023-07-07] MEDS: PANTOprazole 40 MG TAB PO SCH (08:40)
[2023-07-07] MEDS: HEPARIN SOD 5,000 UNIT/0.5 ML VIAL SQ SCH ×2 (08:40→21:35)
[2023-07-07] MEDS: CEFEPIME 2,000 MG in SYRINGE 0 ML IV SCH ×2 (08:40→21:40)
[2023-07-07] MEDS: ASPIRIN 81 MG ECTAB PO SCH (08:41)
[2023-07-07] MEDS: DULoxetine HCL 60 MG CAP PO SCH (08:41)
--- NOTE | 2023-07-07 12:04 | Hospitalist Progress Note ---
Date of Service July 07, 2023 Assessment & Plan (1) Catheter-associated urinary tract infection: Plan: Chronic suprapubic catheter. Urology consultation appreciated. Previous cultures grew Pseudomonas. Urine culture revealed pinpoint growth and is reintubating. Blood cultures negative to date. Currently on cefepime, day 3. Consult ID for assistance on discharge Recommend exchanging suprapubic catheter. (2) Dysphagia: Plan: Patient reports some episodes of dysphagia - difficult time swallowing particular foods like rice. He denies GERD symptoms. Possible esophageal dysmotility. He may benefit from an outpatient workup. Not a significant clinical problem at this time (3) Weakness: Plan: Due to UTI. OT and PT assessments requested. Plan Anticipate eventual discharge back to home within the next several days Admission and Anticipated Discharge Date Admission Date: July 04, 2023 Subjective Patient reports no new symptoms. Review of Systems Review of Systems: All systems reviewed & are unremarkable except as noted in HPI & below Physical Exam Physical Exam: General-alert and oriented x3, no fevers, no chills HEENT-head atraumatic and normocephalic Neck-no lymphadenopathy or thyromegaly, trachea midline Chest-clear to auscultation percussion. No rales wheezing or rhonchi Cardiac-regular rate and rhythm, normal S1 and S2 Abdomen-normal bowel sounds, nontender, no hepatosplenomegaly GUsuprapubic catheter in place, purulent drainage, foul smell Extremities-no cyanosis, clubbing, or edema Neuro-cranial nerves II through XII intact Psych-normal affect, normal mood Results & Data Results & Data Vital Signs (Past 12 Hours) Vital Signs Temp Pulse Resp BP Pulse Ox O2 Del Method 07/07/23 07:23 36.6 C 78 18 125/84 94 Room Air 07/07/23 01:59 121/82 PG Care Time/CCT Total # of Minutes Spent Total Time Spent with Patient: Total time spent is greater than 50% in coordination of care (as documented) at patient's floor/unit and/or counseling patient: Coding Level of Care Code 24026 SUB INP/OBS CARE 2/35MIN Diagnoses Catheter-associated urinary tract infection T83.511A; N39.0 Encounter type: initial encounter Indwelling urinary catheter type: unspecified Dysphagia R13.10 Weakness R53.1 (1) Catheter-associated urinary tract infection Encounter type: initial encounter Indwelling urinary catheter type: unspecified Qualified Code(s): T83.511A - Infection and inflammatory reaction due to indwelling urethral catheter, initial encounter; N39.0 - Urinary tract infection, site not specified
[2023-07-07] MEDS: AMITRIPTYLINE HCL 50 MG TAB PO SCH (21:34)
[2023-07-08] MEDS: oxyCODONE HCL IR 5 MG TAB (IMMEDIATE RELEASE) PO PRN ×4 (02:14→20:46)
[2023-07-08 06:36] LABS: Basophils # (auto) 0.05 K/uL (0.00-0.20); Basophils % (auto) 0.8 %; Eosinophils # (auto) 0.97 K/uL (0.00-0.50); Hematocrit (blood only) 44.4 % (42.0-52.0); Hemoglobin 15.2 g/dl (14.0-18.0); Immature Granulocytes # (auto) 0.09 K/uL (0.01-0.20); Immature Granulocytes % (auto) 1.5 %; Lymphocytes # (auto) 0.86 K/uL (1.20-3.40); Lymphocytes % (auto) 14.2 %; Mean Corpuscular Hemoglobin 33.3 pg (25.0-34.0); Mean Corpuscular Hgb Conc 34.2 g/dL (32.0-36.0); Mean Corpuscular Volume 97.2 fL (80.0-100.0); Monocytes % (auto) 14.8 %; Neutrophils % (auto) 52.7 %; Platelet Count 271 K/uL (130-400); RDW Standard Deviation 46.5 fL (36.4-46.3); Red Blood Count 4.57 M/uL (4.70-6.10); White Blood Count 6.07 K/ul (4.8-10.8)
--- NOTE | 2023-07-08 06:42 | Infectious Disease Consult ---
Date of Consultation July 08, 2023 Assessment & Plan (1) Weakness: (2) Abdominal discomfort: (3) Catheter-associated urinary tract infection: (4) Chronic suprapubic catheter: Plan Micro: 07/05 BCx x2: NGTD 07/04 UCx: PsA #1, PsA #2 (R levo, cipro) 01/23 UCx: PsA (R levo, cipro) Abx: Cefepime 07/04 - present Problems: #Pseudomonas catheter-associated UTI #Bladder outlet obstruction s/p suprapubic catheter Pt has history of bladder colonization with Pseudomonas given his chronic suprapubic catheter. A true catheter-associated UTI therefore is difficult to diagnose. However, given his clinical symptoms of increased generalized weakness, fatigue, inability to get out of bed, lower abd pain, will treat as a UTI. Recommendations: -Discontinued cefepime. Ordered one time dose of tobramycin 445 mg IV (5 mg/kg dosed by ABW 89 kg given BMI > 30) for this AM. This will remain in his system for several days, completing a ~7 day total course of antibiotics -Recommend suprapubic catheter exchange Will sign off. Please page [facility] with further questions. Consultation Information Consultation was provided via telemedicine using two-way real-time interactive telecommunication between the patient and the telemedicine provider. For the duration of the visit, the provider was performing the assessment from a different facility than the patient. This includesuse of bluetooth stethoscope forauscultationperformed by the telepresenter that the telemedicine provider can hear if described in the physical exam. Bulk Delivery Driver contact information: Please call [facility] . (Phone Number For Physician Use Only) After establishing a telemedicine visit, patient was: Patient was verified with two unique identifiers, Patient/authorized rep acknowledged consent and understanding and Gave permission to continue telehealth session Time Spent with Patient: Initial => 40 min History of Present Illness Reason for Consultation: UTI Requesting Physician: Dr. Holden Attending Physician: Donnell Holden History of Present Illness 72 yo M with history of bladder outlet obstruction s/p suprapubic catheter placement with recurrent UTIs who presented on 07/04 due to worsening generalized weakness, fatigue, such that he has been unable to get out of bed to perform ADLs for the last 2 weeks. Also reported lower abdominal pain, as well as pain and drainage at the suprapubic catheter insertion site. He has had some difficulty emptying his urinary bag due to increased amount of sediment in the bag which occasionally blocks the tubing. Also reports some nausea and vomiting, as well as decreased p.o. intake and chills. Pt is a limited historia n. On presentation, patient was afebrile, HR 113. Labs showed no leukocytosis, Cr 1, UA with 10-30 WBCs. COVID-19/flu/RSV negative. CXR negative. CT A/P without contrast showed suprapubic catheter terminating in the urinary bladder which is decompressed. He was started on cefepime for possible UTI. Urology was consulted and recommended no acute urologic intervention. Urine culture grew 2 types of Pseudomonas aeruginosa. Allergies Allergy/AdvReac Type Severity Reaction Status Date / Time No Known Allergies Allergy Verified 07/04/23 17:17 Home Medications Medication Instructions Recorded Confirmed Type ascorbate calcium (vitamin C) 500 500 mg PO QAM 03/22/19 07/04/23 History mg tablet vitamin B complex 1 cap PO QAM 03/22/19 07/04/23 History Lactobacillus acidophilus 10 1 cell PO QAM 11/09/19 07/04/23 History billion cell capsule (Probiotic) multivitamin 1 tab PO QAM 10/15/20 07/04/23 History aspirin 81 mg tablet,delayed 81 mg PO QAM 07/11/21 07/04/23 History release (Adult Low Dose Aspirin) cholecalciferol (vitamin D3) 25 1,000 unit PO QAM 10/16/21 07/04/23 History mcg (1,000 unit) capsule omega 4-xhy-wwk-fish oil 1,000 mg 1 cap PO QAM 06/19/22 07/04/23 History (120 mg-180 mg) capsule (Fish Oil) vitamin E (dl, acetate) 90 mg (200 90 mg PO QAM 07/21/22 07/04/23 History unit) capsule tramadol 50 mg tablet 50 mg PO DAILY #30 tabs 06/23/23 07/04/23 Rx amitriptyline 50 mg tablet 50 mg PO HS 07/04/23 07/04/23 History duloxetine 60 mg capsule,delayed 60 mg PO QAM 07/04/23 07/04/23 History release Patient History Medical History History of UTI Recurrent hx, pseudomonas on recent urine culture > rx fosfomycin by urology BCC (basal cell carcinoma) Situational depression r/t intermittent severe UTI Dupuytren's contracture of both hands Obesity Suprapubic catheter Current Basal cell carcinoma of back History of COVID-19 09/2020- fatigue, loss of taste and smell > resolved Asthma Hepatic steatosis Bladder outlet obstruction Atonic bladder with suprapubic catheter placement Chronic back pain BPH (benign prostatic hyperplasia) Surgical History History of urologic surgery Medtronic Interstim placed 06/18/22 at [place]- later removed secondary to infection H/O ventral hernia repair Robotic Laparoscopic Ventral Hernia Repair with Mesh, Transabdominal pre peritoneal History of surgery suprapubic cath placed [place] [facility] [place] Hx of biopsy Back Mass Wide Local Excision (11/20/21): Grade view 2, MAC#3, ETT 7.5 at [facility] [place] History of cystoscopy Direct Visual Internal Urethrotomy Hx of biopsy 10/29/2021: lesion on his back punch biopsy Dr. Perez in office History of ureter repair stricture History of basal cell carcinoma (BCC) excision back H/O dilation of urethra x3 S/P tonsillectomy Family History Mother Alcohol abuse Bone cancer Dementia Breast cancer She age 85 Uterine cancer Ovarian cancer Brother Alcohol abuse Brother Depression - suicide. Father Dementia Began after open heart surgery age 89. Still living as of 10/2019. born 1923 Heart disease valvular Other No family history of adverse response to anesthesia Denies family history of Prostate cancer Myocardial infarction Lung cancer Colorectal cancer Stroke Social History Smoking Status: Never smoker Age Started Using Tobacco: 21; Age Quit Using Tobacco: 26; Second Hand Exposure: No; Do You Dip or Chew Tobacco: No; Hx Alcohol Use: Yes Alcohol type: wine Alcohol Intake Frequency: 4 or More x per/Week Hx Substance Use: No Preferred Language: Upper Sorbian Communication Ability: Effective Visual Impairment: Diminished Hearing Ability: Normal Rotary Helper Required: No Beliefs That Will Affect Care: None marital status: Current Living Situation: Spouse Current Living Situation Comment: current occupational status: retired How many Children do You have: 1 Feels Safe at Home: Yes Childhood Exposure to Second-Hand Smoke: Yes Diet: regular caffeine: Yes Dental Care, Regularly: Yes Physical Activity Frequency: 3-4 Times per Week Physical Activity Frequency Comment: walk Seatbelt Use: always Sunscreen Use: Yes Do you think of yourself as: straight/heterosexual Assistive Devices: None Review of System A complete ROS was performed and is negative except as mentioned in the HPI. Physical Exam Physical Exam: GEN: NAD RESP: No increased work of breathing ABD: Soft, non-distended. Non-tender to palpation. Suprapubic catheter in place with surrounding well-demarcated erythema, slight discharge around tube insertion site. NEURO: alert, does not seem oriented to time Results & Data Vital Signs (Past 12 Hours) Vital Signs Temp Pulse Resp BP Pulse Ox O2 Del Method 07/07/23 20:37 36.6 C 73 18 135/89 96 Room Air 07/07/23 20:00 Room Air Laboratory Results Short CBC 07/08/23 Range/Units 05:40 WBC 6.07 (4.8-10.8) K/ul Hgb 15.2 (14.0-18.0) g/dl Hct 44.4 (42.0-52.0) % Plt Count 271 (130-400) K/uL Diagnostic Findings Head CT 07/06/23 23:21 Exam(s): CT HEAD Without Contrast EXAM: CT Head Without Intravenous Contrast CLINICAL HISTORY: Reason for exam: fall. TECHNIQUE: Axial computed tomography images of the head/brain without intravenous contrast. CTDI is 15.23 mGy and DLP is 495.6 mGy-cm. Automated exposure control was utilized for the study. A dose lowering technique was utilized adhering to the principles of ALARA. COMPARISON: Comparison made to prior head CT from October 15, 2020. FINDINGS: Brain: Unremarkable. No hemorrhage. Mild nonspecific white matter changes. No edema. Ventricles: Mild ventriculomegaly. Bones/joints: Unremarkable. No acute fracture. Soft tissues: There is mild soft tissue swelling over the left posterior occiput. Sinuses: Chronic ethmoid sinusitis. No acute sinusitis. Mastoid air cells: Unremarkable as visualized. No mastoid effusion. IMPRESSION: No evidence of acute intracranial pathology. Electronically signed by: Annie Coy MD 07/07/23 01:42 AM Neck CTA 07/06/23 23:21 Exam(s): CTA NECK With Contrast IV Amt: 113 ML OPTIRAY 320 EXAM: CT Angiography Neck With Intravenous Contrast CLINICAL HISTORY: Reason for exam: fall. TECHNIQUE: Routine carotid CT angiography protocol was performed with intravenous contrast. NASCET criteria using the distal ICAs for comparison were used for evaluation of stenoses. CTDI is 37.87 mGy and DLP is 702.46 mGy-cm. Automated exposure control was utilized for the study. A dose lowering technique was utilized adhering to the principles of ALARA. MIP reconstructed images were created and reviewed. CONTRAST: Patient received 113 ML OPTIRAY 320 of IV contrast COMPARISON: None. FINDINGS: VASCULATURE: Right common carotid artery: Unremarkable. No occlusion or significant stenosis. No dissection. Right internal carotid artery: Unremarkable. Extracranial segment is patent with no occlusion or significant stenosis. No dissection. Right external carotid artery: Unremarkable. No occlusion. Right vertebral artery: Unremarkable. No occlusion or significant stenosis. No dissection. Left common carotid artery: Unremarkable. No occlusion or significant stenosis. No dissection. Left internal carotid artery: Unremarkable. Extracranial segment is patent with no occlusion or significant stenosis. No dissection. Left external carotid artery: Unremarkable. No occlusion. Left vertebral artery: Unremarkable. No occlusion or significant stenosis. No dissection. NECK: Bones/joints: Moderate to advanced disc degeneration at C3-4, C5-6 and C6-7 with ankylosis of C4 on C5. Soft tissues: Prominent mediastinal lymph nodes. Prominent cervical lymph nodes. Lung apices: Bronchitis with pneumonitis, which may be of infectious or inflammatory etiologies. CAROTID STENOSIS REFERENCE USING NASCET CRITERIA: % ICA stenosis = (1 - narrowest ICA diameter/diameter of distal cervical ICA) x 100. Mild - <50% stenosis. Moderate - 50-69% stenosis. Severe - 70-94% stenosis. Near occlusion - 95-99% stenosis. Occluded - 100% stenosis. IMPRESSION: Negative CTA neck. Electronically signed by: Annie Coy MD 07/07/23 01:40 AM Medications Administered Current Inpatient Medications Acetaminophen (Acetaminophen 325 Mg Tab) 650 mg PO Q4H PRN PRN Reason: pain/fever Stop: 08/03/23 21:15 Amitriptyline HCl (Amitriptyline Hcl 50 Mg Tab) 50 mg PO [facility] Stop: 08/03/23 21:44 Last Admin: 07/07/23 21:34 Dose: 50 mg Aspirin (Aspirin 81 Mg Ectab) 81 mg PO QAM [facility] Stop: 08/04/23 08:59 Last Admin: 07/07/23 08:41 Dose: 81 mg Duloxetine HCl (Duloxetine Hcl 60 Mg Cap) [facility] Stop: 08/04/23 08:59 Last Admin: 07/07/23 08:41 Dose: 60 mg Heparin Sodium (Porcine) (Heparin Sod 5,000 Unit/0.5 Ml Vial) 5,000 units SQ Q12 [facility] Stop: 08/04/23 08:59 Last Admin: 07/07/23 21:35 Dose: 5,000 units Cefepime HCl 2,000 mg/ Syringe 20 mls @ 5 mls/min IV Q12H [facility]; Protocol Stop: 07/15/23 07:59 Last Admin: 07/07/23 21:40 Dose: 5 mls/min Ondansetron HCl (Ondansetron Inj 2 Mg/Ml 2 Ml Vial) 4 mg IV Q6H PRN PRN Reason: Nausea And Vomiting Stop: 08/03/23 21:15 Oxycodone HCl (Oxycodone Hcl Ir 5 Mg Tab (Immediate Release)) 5 mg PO Q4H PRN PRN Reason: Pain Stop: 07/18/23 21:15 Last Admin: 07/08/23 05:43 Dose: 5 mg Pantoprazole Sodium (Pantoprazole 40 Mg Tab) [address] [facility] Stop: 08/04/23 08:59 Last Admin: 07/07/23 08:40 Dose: 40 mg (3) Catheter-associated urinary tract infection Encounter type: initial encounter Indwelling urinary catheter type: unspecified Qualified Code(s): T83.511A - Infection and inflammatory reaction due to indwelling urethral catheter, initial encounter; N39.0 - Urinary tract infection, site not specified
[2023-07-08] MEDS ORDERED: TOBRAMYCIN CONSULT ACTIVE PRN (06:59)
[2023-07-08 07:01] LABS: BUN Creatinine Ratio 16.7 (10-20); Calcium 8.8 mg/dl (8.6-10.3); Creatinine Clr Calc Pharmacy 92.9 ml/min; Est GFR (African American) 98.5 ml/min; Potassium 3.8 mmol/L (3.5-5.1)
[2023-07-08] MEDS ORDERED: TOBRAMYCIN SULFATE IV ONE (08:00)
[2023-07-08] MEDS ORDERED: DEXTROSE 5% IV ONE (08:00)
[2023-07-08] MEDS: DULoxetine HCL 60 MG CAP PO SCH (08:31)
[2023-07-08] MEDS: ASPIRIN 81 MG ECTAB PO SCH (08:31)
[2023-07-08] MEDS: HEPARIN SOD 5,000 UNIT/0.5 ML VIAL SQ SCH ×2 (08:31→20:47)
[2023-07-08] MEDS: PANTOprazole 40 MG TAB PO SCH (08:31)
--- NOTE | 2023-07-08 10:08 | Pharmacy Report ---
Pharmacy PK ABX Note - Date of Service July 08, 2023 - Assessment and Plan Assessment 72 year old M received Tobramycin 445 mg IV (5 mg/kg Adjusted body wt) x 1 today per ID for pseudomonas UTI. No further doses need. Plan Since no further doses of Tobramycin is required, we will not obtain a Tobramycin level. Pharmacy will sign off on this consult.
--- NOTE | 2023-07-08 15:26 | Urology Progress Note ---
Date of Service July 08, 2023 Assessment & Plan (1) Weakness: (2) Urethral stricture: (3) UTI (urinary tract infection): (4) Chronic suprapubic catheter: Plan 72-year-old male with a history of bulbar urethral stricture managed with a chronic SP tube who was admitted to the hospital 07/04/2023 for a suspected UTI. 18 F silicone SP catheter was exchanged at bedside Patient tolerated procedure with minimal discomfort Catheter was patent and draining light pink urine upon completion suspect likely due to local irritation from exchange Urine culture grew out Pseudomonas ID consulted and cefepime was discontinued, transitioned to tobramycin Continue antibiotics and supportive care per hospital medicine service/ID Continue with monthly catheter exchanges with our service We will arrange outpatient follow-up with our service will sign off Admission and Anticipated Discharge Date Admission Date: July 04, 2023 Subjective Urology asked to exchange patient's SP catheter. Patient resting in bed, arouses easily to his name. Continues to feel weak and fatigued, but improved since arrival. Reports confusion at times. Denies pain at present. Denies nausea, vomiting, fever or chills. Review of Systems Constitutional: as per Subjective / HPI Gastrointestinal: as per Subjective / HPI Genitourinary: + as per Subjective / HPI Physical Exam Constitutional: no acute distress Respiratory: normal respiratory effort; no respiratory distress Gastrointestinal (Abdomen): Inspection/Auscultation: abdomen normal to inspection; abdomen not distended Percussion/Palpation: abdomen soft; abdomen nontender Skin: Scattered rash over extremities and abdomen, RN aware Psychiatric: Orientation: alert and oriented to person Genitourinary: Using sterile technique a well lubricated 18 Bengali silicone SP catheter was exchanged, catheter irrigated with approx 60 mL of sterile water. Patient tolerated with minimal discomfort, catheter was draining appropriately at completion with light pink urine Results & Data Vital Signs (Past 12 Hours) Vital Signs Temp Pulse Resp BP Pulse Ox O2 Del Method 07/08/23 15:22 36.7 C 73 16 129/82 94 Room Air 07/08/23 07:02 36.4 C L 73 16 131/84 93 Room Air PG Care Time/CCT Total # of Minutes Spent Total Time Spent with Patient: Total time spent is greater than 50% in coordination of care (as documented) at patient's floor/unit and/or counseling patient: Coding Level of Care Code 09124 SUB INP/OBS CARE MIN Diagnoses Weakness R53.1 Urethral stricture N35.919 Urethral stricture sex-location: male urethra-bulbous UTI (urinary tract infection) N39.0; R31.9 Hematuria presence: with hematuria Urinary tract infection type: site unspecified Chronic suprapubic catheter Z93.59 (2) Urethral stricture Urethral stricture sex-location: male urethra-bulbous (3) UTI (urinary tract infection) Hematuria presence: with hematuria Urinary tract infection type: site u nspecified Qualified Code(s): N39.0 - Urinary tract infection, site not specified; R31.9 - Hematuria, unspecified
[2023-07-08] MEDS: AMITRIPTYLINE HCL 50 MG TAB PO SCH (20:47)
--- NOTE | 2023-07-08 21:43 | Hospitalist Progress Note ---
Date of Service July 08, 2023 Assessment & Plan (1) Catheter-associated urinary tract infection: Plan: Chronic suprapubic catheter. Urology consultation appreciated. Previous cultures grew Pseudomonas. Urine culture revealed pinpoint growth and is reintubating. Blood cultures negative to date. Currently on cefepime, day 3. Consult ID for assistance on discharge: appreciate input Recommend exchanging suprapubic catheter, this was completed on 07/08 continue antibiotics, switched cefepime (this may also cause delirium. (2) Dysphagia: Plan: Patient reports some episodes of dysphagia - difficult time swallowing particular foods like rice. He denies GERD symptoms. Possible esophageal dysmotility. He may benefit from an outpatient workup. Not a significant clinical problem at this time (3) Weakness: Plan: Due to UTI. OT and PT assessments requested. Plan Anticipate eventual discharge back to home within the next several days Admission and Anticipated Discharge Date Admission Date: July 04, 2023 Subjective Patient reports no new symptoms. He reports he feels more clearer mentally. Review of Systems Review of Systems: All systems reviewed & are unremarkable except as noted in HPI & below Physical Exam 2 Physical Exam: General-alert and oriented x3, no fevers, no chills HEENT-head atraumatic and normocephalic Neck-no lymphadenopathy or thyromegaly, trachea midline Chest-clear to auscultation percussion. No rales wheezing or rhonchi Cardiac-regular rate and rhythm, normal S1 and S2 Abdomen-normal bowel sounds, nontender, no hepatosplenomegaly GUsuprapubic catheter in place Extremities-no cyanosis, clubbing, or edema Neuro-cranial nerves II through XII intact Psych-normal affect, normal mood Results & Data Results & Data Vital Signs (Past 12 Hours) Vital Signs Temp Pulse Resp BP Pulse Ox O2 Del Method 07/08/23 20:16 36.7 C 71 18 128/82 96 Room Air 07/08/23 15:22 36.7 C 73 16 129/82 94 Room Air PG Care Time/CCT Total # of Minutes Spent Total Time Spent with Patient: Total time spent is greater than 50% in coordination of care (as documented) at patient's floor/unit and/or counseling patient: Coding Level of Care Code 26523 SUB INP/OBS CARE 2/35MIN Diagnoses Catheter-associated urinary tract infection T83.511A; N39.0 Encounter type: initial encounter Indwelling urinary catheter type: unspecified Dysphagia R13.10 Weakness R53.1 (1) Catheter-associated urinary tract infection Encounter type: initial encounter Indwelling urinary catheter type: unspecified Qualified Code(s): T83.511A - Infection and inflammatory reaction due to indwelling urethral catheter, initial encounter; N39.0 - Urinary tract infection, site not specified
[2023-07-09] MEDS: oxyCODONE HCL IR 5 MG TAB (IMMEDIATE RELEASE) PO PRN ×3 (00:27→23:27)
[2023-07-09] MEDS: ACETAMINOPHEN 325 MG TAB PO PRN ×2 (08:48→19:35)
[2023-07-09] MEDS: HEPARIN SOD 5,000 UNIT/0.5 ML VIAL SQ SCH ×2 (08:49→19:35)
[2023-07-09] MEDS: PANTOprazole 40 MG TAB PO SCH (08:49)
[2023-07-09] MEDS: POLYETHYLENE (MIRALAX) 17 GM PACK PO SCH (08:49)
[2023-07-09] MEDS: ASPIRIN 81 MG ECTAB PO SCH (08:49)
[2023-07-09] MEDS: DULoxetine HCL 60 MG CAP PO SCH (08:49)
--- NOTE | 2023-07-09 09:40 | XRay Report ---
KUB CLINICAL HISTORY: Constipation. FINDINGS: 2 AP supine abdominal radiographs are correlated with abdominal CT dated 07/04/2023. There i s a nonobstructed abdominal bowel gas pattern. [id number] fecal retention is seen throughout th e colon. No evidence of intraperitoneal free air is seen on these supine images. There are no abnorma l abdominal calcifications. The skeletal structures are osteopenic and appear intact. There is modera te lumbosacral spondylosis. A catheter projects over the pelvis. IMPRESSION: No acute abnormality is identified. See above. Electronically signed by: Agustin Ross M.D. 07/09/2023 9:38 AM
--- NOTE | 2023-07-09 19:31 | Hospitalist Progress Note ---
Date of Service July 09, 2023 Assessment & Plan (1) Catheter-associated urinary tract infection: Plan: Chronic suprapubic catheter. Urology consultation appreciated. Previous cultures grew Pseudomonas. Urine culture revealed pinpoint growth and is reintubating. Blood cultures negative to date. received 3 days of cefepime Consult ID recommended one dose of tobramycin, treat pseudomonas culture as uti poa with his clinical picture Recommend exchanging suprapubic catheter, this was completed on 07/08 (2) Dysphagia: Plan: Patient reports some episodes of dysphagia - difficult time swallowing particular foods like rice. He denies GERD symptoms. Possible esophageal dysmotility. He may benefit from an outpatient workup. Not a significant clinical problem at this time (3) Weakness: Plan: Due to UTI. OT and PT assessments recommend rehab Plan PT recommends SNF Admission and Anticipated Discharge Date Admission Date: July 04, 2023 Results & Data Results & Data Vital Signs (Past 12 Hours) Vital Signs Temp Pulse Resp BP Pulse Ox O2 Del Method 07/09/23 15:07 97.5 F L 92 H 18 124/75 95 Room Air 07/09/23 10:05 Room Air 07/09/23 07:41 97.9 F 83 18 107/74 93 Room Air PG Care Time/CCT Total # of Minutes Spent Total Time Spent with Patient: Total time spent is greater than 50% in coordination of care (as documented) at patient's floor/unit and/or counseling patient: Coding Diagnoses Catheter-associated urinary tract infection T83.511A; N39.0 Encounter type: initial encounter Indwelling urinary catheter type: unspecified Dysphagia R13.10 Weakness R53.1 (1) Catheter-associated urinary tract infection Encounter type: initial encounter Indwelling urinary catheter type: unspecified Qualified Code(s): T83.511A - Infection and inflammatory reaction due to indwelling urethral catheter, initial encounter; N39.0 - Urinary tract infection, site not specified
[2023-07-09] MEDS: AMITRIPTYLINE HCL 50 MG TAB PO SCH (19:36)
--- NOTE | 2023-07-09 22:31 | Hospitalist Progress Note ---
Date of Service July 09, 2023 Assessment & Plan (1) Catheter-associated urinary tract infection: Plan: Chronic suprapubic catheter. Urology consultation appreciated. Previous cultures grew Pseudomonas. Urine culture revealed pinpoint growth and is reintubating. Blood cultures negative to date. received 3 days of cefepime Consult ID recommended one dose of tobramycin, treat pseudomonas culture as uti poa with his clinical picture Recommend exchanging suprapubic catheter, this was completed on 07/08 (2) Dysphagia: Plan: Patient reports some episodes of dysphagia - difficult time swallowing particular foods like rice. He denies GERD symptoms. Possible esophageal dysmotility. He may benefit from an outpatient workup. Not a significant clinical problem at this time (3) Weakness: Plan: Due to UTI. OT and PT assessments recommend rehab Plan PT recommends SNF Admission and Anticipated Discharge Date Admission Date: July 04, 2023 Subjective Patient reports no new symptoms. He states feeling more clear and is asking me to test him with orientation questions. Review of Systems Review of Systems: All systems reviewed & are unremarkable except as noted in HPI & below Physical Exam Physical Exam: General-alert and oriented x3, no fevers, no chills HEENT-head atraumatic and normocephalic Chest-clear to auscultation percussion. No rales wheezing or rhonchi Cardiac-regular rate and rhythm, normal S1 and S2 Abdomen-normal bowel sounds, nontender, no hepatosplenomegaly GUsuprapubic catheter in place Extremities-no cyanosis, clubbing, or edema Results & Data Results & Data Vital Signs (Past 12 Hours) Vital Signs Temp Pulse Resp BP Pulse Ox O2 Del Method 07/09/23 20:09 36.6 C 72 18 144/89 H 96 Room Air 07/09/23 15:07 36.4 C L 92 H 18 124/75 95 Room Air PG Care Time/CCT Total # of Minutes Spent Total Time Spent with Patient: Total time spent is greater than 50% in coordination of care (as documented) at patient's floor/unit and/or counseling patient: Coding Level of Care Code 64880 SUB INP/OBS CARE 2/35MIN Diagnoses Catheter-associated urinary tract infection T83.511A; N39.0 Encounter type: initial encounter Indwelling urinary catheter type: unspecified Dysphagia R13.10 Weakness R53.1 (1) Catheter-associated urinary tract infection Encounter type: initial encounter Indwelling urinary catheter type: unspecified Qualified Code(s): T83.511A - Infection and inflammatory reaction due to indwelling urethral catheter, initial encounter; N39.0 - Urinary tract infection, site not specified
[2023-07-10] MEDS ORDERED: MELATONIN 3 MG TAB PO PRN (02:09)
[2023-07-10] MEDS: oxyCODONE HCL IR 5 MG TAB (IMMEDIATE RELEASE) PO PRN (03:24)
[2023-07-10] MEDS: ACETAMINOPHEN 325 MG TAB PO PRN ×3 (06:23→20:00)
--- NOTE | 2023-07-10 07:31 | Hospitalist Progress Note ---
Date of Service July 10, 2023 Assessment & Plan (1) Hallucinations: Plan: PT recalls police in his room this am, otherwise is oriented no evidence of injury or neurologic deficit CT head is negative for intracranial injury nursing requests to hold heparin discloses pt drink approx a box of wine a day, concern that these episodes are alcohol withdrawal, given 500 mg iv thiamine trying low doses of librium, definately has some disordered thinking, has iv ativan for back up (2) Catheter-associated urinary tract infection: Plan: Chronic suprapubic catheter. Urology consultation appreciated. Previous cultures grew Pseudomonas. Urine culture revealed pinpoint growth and is reintubating. Blood cultures negative to date. received 3 days of cefepime Consult ID recommended one dose of tobramycin, treat pseudomonas culture as uti poa with his clinical picture Recommend exchanging suprapubic catheter, this was completed on 07/08 (3) Dysphagia: Plan: Patient reports some episodes of dysphagia - difficult time swallowing particular foods like rice. He denies GERD symptoms. Possible esophageal dysmotility. He may benefit from an outpatient workup. Not a significant clinical problem at this time (4) Weakness: Plan: Due to UTI. OT and PT assessments recommend rehab Plan PT recommends SNF Admission and Anticipated Discharge Date Admission Date: July 04, 2023 Subjective pt is confused with hallucinations by description of an event where he believes that police were in his room this am. He did have falls this hospital stay including last night. Pt himself stated he fell on a wet floor. He did not describe headache and there was no evidence of contusion or abrasion other than a small scap on the occiput of his head. He had no facial droop, fluent speech, equal bilateral strength and sensation, and was oriented to person place and time. Nursing felt uncomfortable giving subcutaneous heparin with his falls and allegedly striking head, they requested a head CT, this was ordered Physical Exam Physical Exam: The patient appeared well nourished and normally developed. Vital signs as documented. Head exam is normocephalic atraumatic with exception of small abrasion to scalp 2 mm or less Neck is without JVD, thyromegaly, or carotid bruits. Lungs are clear to auscultation, no focal loss of breath sounds Cardiac exam, Rhythm is regular.. No murmurs, rubs or gallops. Abdominal exam reveals normal bowel sounds, soft non tender, no masses Extremities are nonedematous and both pedal pulses are present Neurologic exam is alert and oriented, no focal loss of strength or sensation Skin is with tinea versicolor on torso and arms Psychologically is without concerns for anxiety or depression.. Results & Data Results & Data Vital Signs (Past 12 Hours) Vital Signs Temp Pulse Resp BP Pulse Ox O2 Del Method 07/10/23 01:40 98.1 F 100 H 18 150/99 H 92 Room Air 07/09/23 23:00 Room Air 07/09/23 20:09 97.9 F 72 18 144/89 H 96 Room Air PG Care Time/CCT Total # of Minutes Spent Total Time Spent with Patient: Total time spent is greater than 50% in coordination of care (as documented) at patient's floor/unit and/or counseling patient: Coding Level of Care Code 85058 SUB INP/OBS CARE 2/35MIN Diagnoses Hallucinations R44.3 Catheter-associated urinary tract infection T83.511A; N39.0 Encounter type: initial encounter Indwelling urinary catheter type: unspecified Dysphagia R13.10 Weakness R53.1 (2) Catheter-associated urinary tract infection Encounter type: initial encounter Indwelling urinary catheter type: unspecified Qualified Code(s): T83.511A - Infection and inflammatory reaction due to indwelling urethral catheter, initial encounter; N39.0 - Urinary tract infection, site not specified
[2023-07-10] MEDS: HEPARIN SOD 5,000 UNIT/0.5 ML VIAL SQ SCH (09:29)
[2023-07-10] MEDS: DULoxetine HCL 60 MG CAP PO SCH (09:29)
[2023-07-10] MEDS: PANTOprazole 40 MG TAB PO SCH (09:29)
[2023-07-10] MEDS: POLYETHYLENE (MIRALAX) 17 GM PACK PO SCH (09:29)
[2023-07-10] MEDS: ASPIRIN 81 MG ECTAB PO SCH (09:29)
--- NOTE | 2023-07-10 13:29 | CT Scan Report ---
CT head/brain wo con CLINICAL HISTORY: fall Technique: Contiguous axial CT images of the head were acquired from the base of the skull to the luz maria kelley without intravenous contrast administration. Images were viewed in brain, subdural and bone [facility]. Automated dose lowering techniques and/or adjustment according to patient size were utilized for this exam. Comparison: Comparison is made to CT head 07/16/2023 Findings: Areas of decreased attenuation are present in the periventricular and subcortical white matter bilate rally consistent with small vessel ischemic disease. Generalized cerebral atrophy with commensurate e nlargement of the ventricles, sulci, and cisterns is also present. There is no acute intracranial hem orrhage or evidence of acute territorial infarction. No shift of the midline structures, mass effect, or extra-axial abnormalities are shown. Atherosclerotic calcifications are present in the intracran ial segments of the internal carotid arteries. Imaged portions of the paranasal sinuses and mastoid air cells are clear. The orbits appear normal. There are no acute fractures of the calvaria or scalp swelling. Impression: No acute intracranial hemorrhage, no evidence of acute territorial infarction or other acute intracra nial disease process. ACT 112: Negative or not required by law. Electronically signed by: Quinn Sharpe M.D. 07/10/2023 1:27 PM
[2023-07-10] MEDS ORDERED: THIAMINE HCL 500 MG in SODIUM CHLORIDE 0.9% 50 ML IV STA (14:04)
[2023-07-10] MEDS: LORazepam 0.5 MG TAB PO PRN (20:00)
[2023-07-11 06:17] LABS: Albumin Globulin Ratio 1.1 (0.9-2); Albumin Level 3.6 gm/dl (3.4-5.0); BUN Creatinine Ratio 22.8 (10-20); Calcium 9.7 mg/dl (8.6-10.3); Creatinine Clr Calc Pharmacy 90.9 ml/min; Est GFR (Non-African American) 82.8 ml/min; Globulin 3.4 gm/dl (2.5-4.0); Potassium 3.9 mmol/L (3.5-5.1)
--- OUTSIDE RECORDS SUMMARY | 2023-07-11 06:39 | External Medical Summary | Continuity of Care Document ---
Author Name Unknown Organization [facility] [address] [facility] [address] [id number] Care Team Providers Care Office Rn Name Role Phone AntwanSravanthi Nicolette Primary Care Physician [phone] Encounter [facility] [id number] Date(s): 03/11/23 - 03/11/23 [facility] [address] [facility] [address] [place] [id number] Encounter Diagnosis Basal cell carcinoma (BCC) of right lateral cheek(Discharge Diagnosis) - 03/11/23 Discharge Disposition: Home or Self Care Attending Physician: MD Gill Cassandra Referring Physician: MD Vance Matthew A Allergies, Adverse Reactions, Alerts No Known Allergies Immunizations Given and Recorded Vaccine Date Status Refusal Reason SARS-CoV-2 (COVID-19) mRNA-1273 vaccine 1 12/13/20 Recorded SARS-CoV-2 (COVID-19) mRNA-1273 vaccine 2 11/15/20 Recorded 1Result Comment: 2022-06-11: Historical information-source unspecified 2Result Comment: 2022-06-11: Historical information-source unspecified Medications aspirin 81 mg oral delayed release tablet Start: 05/19/19 9:25:00 EDT, 1 tab, PO, Daily Start Date: 05/19/19 Status: Ordered B-Complex 50 Start: 05/19/19 9:25:00 EDT, 1 tab, PO, Daily Start Date: 05/19/19 Status: Ordered Bactrim DS 800 mg-160 mg oral tablet Start: 07/02/22 17:41:00 EDT, 1 tab, PO, bid, Disp# 14 tab, [facility] Start Date: 07/02/22 Stop Date: 07/09/22 Status: Ordered lecithin compounding granule Start: 05/19/19 9:25:00 EDT, See Instructions Start Date: 05/19/19 Status: Ordered Multi Vitamin+ Start: 05/19/19 9:25:00 EDT, Daily Start Date: 05/19/19 Status: Ordered Probiotic Formula Start: 05/19/19 9:26:00 EDT, 1 cap, PO, Daily Start Date: 05/19/19 Status: Ordered tamsulosin 0.4 mg oral capsule Start: 11/15/21 10:12:00 EDT, 1 cap, PO, Daily Start Date: 11/15/21 Status: Ordered Toradol 10 mg oral tablet Start: 03/20/22 15:02:00 EDT, 1 tab, PO, q4h, Disp# 18 tab, PRN: as needed for pain, Pharmacy: [facility] Start Date: 03/20/22 Status: Ordered traMADol Start: 05/27/22 11:47:00 EDT Start Date: 05/27/22 Status: Ordered Vitamin C Start: 05/19/19 9:24:00 EDT, 1,000 mg =, PO, Daily Start Date: 05/19/19 Status: Ordered Vitamin D3 Start: 10/11/21 13:39:00 EST, Note to Pharmacy: 200iu po daily Start Date: 10/11/21 Status: Ordered vitamin E Start: 05/19/19 9:24:00 EDT, 400 Int_Unit =, PO, Daily Start Date: 05/19/19 Status: Ordered Mental Status 03/11/23 Barriers to Learning one year None evide nt Mandatory Health Literacy Documentation Yes Health Literacy Communication Barriers N ever Primary Language Vietnamese Problem List Condition Confirmation Course Effective Dates Status Health St atus Informant Basal cell carcinoma of chest Confirmed Active Urinary retention Confirmed Active Diagnosis Diagnosis Type Effective Dates Health Status Cl inical Service Informant Basal cell carcinoma (BCC) of right lateral cheek Discharge Diagnosis 03/11/23 Non-Specified Procedures Procedure Date Related Diagnosis Body Site Status Mohs' micrographic surgery 03/11/23 Completed Mohs micrographic surgery 05/19/19 Completed Surgery 1981 Completed 1urological surgery for a blockage Social History Social History Type Response Smoking Status Former Smoker, quit > 1 yr Sex Male Implantable Device List Procedure Provider Procedure Date Device Type Site Unknown Unknown 06/11/22 Unknown Unknown Device Identifier Serial Number Lot or Batch Number Manufacturing Date Expiration Date Distinct Identification Code MRI Safety Implantable Status Assigning Authority Unknown Unknown [id number] Unknown 09/20/23 Unknown Unknown Active Unk nown Dermatology Outpt Proc * MD Gill Cassandra: PERFORM, SIGN, VERIFY Event Display: Dermatology Outpt Proc Authored Date: [id number] Patient: LORAINE GALEAS Age: 72 years Sex: Male : 1950 Associated Diagnoses: None Author: MD Gill Cassandra Visit Information Nurse/MA: Visit Information [facility] number: [id number] Mohs Pathology accession number: [id number] Mohs Wood Piler: EDMOND Regan Molly Mohs Surgeon: MD Gill Cassandra [facility] Wood Piler Surgeon: MIKA Sanchez Dawn M . Referral information: Referring Physician: MD Rajiv, Anselmo Chavarria Family physician information: Primary Care Physician: MIKA Moncada Joy C . Location: [place]. Health Status Allergies: Allergic Reactions (Selected) NKA No Known Medication Allergies. Current medication: (Selected) Prescriptions Prescribed Bactrim DS 800 mg-160 mg oral tablet: 1 tab, PO, bid, for 7 day, 14 tab Toradol 10 mg oral tablet: 1 tab, PO, q4h, PRN: as needed for pain, 18 tab Documented Medications Documented B-Complex 50: 1 tab, PO, Daily Multi Vitamin+: Daily Probiotic Formula: 1 cap, PO, Daily Vitamin C: 1,000 mg, PO, Daily Vitamin D3: aspirin 81 mg oral delayed release tablet: 1 tab, PO, Daily lecithin compounding granule: See Instructions tamsulosin 0.4 mg oral capsule: 1 cap, PO, Daily traMADol: vitamin E: 400 Int_Unit, PO, Daily. Problem list: Medical Basal cell carcinoma of chest / SNOMED CT 293768873 / Confirmed Urinary retention / SNOMED CT 673177279 / Confirmed All Problems Basal cell carcinoma of chest / SNOMED CT 968282026 / Confirmed Urinary retention / SNOMED CT 865445861 / Confirmed. Mohs Surgical Information Operation: Surgical excision of cutaneous malignancy using continuous microscopic control (Mohs Micrographic Surgery). Diagnosis: Basal cell carcinoma (BCC) of right lateral cheek ([id number] C44.319, Discharge, Medical), Nodular. Nurse/MA: Surgical Information Mohs Surgical Diagnosis: Nodular, Other: BCC Mohs Surgical Location: Right, Other: Inferior preauricular cheek Mohs Previous Treatment: None Mohs Preop Size of Tumor Length: 1 cm Mohs Preop Size of Tumor Width: 0.9 cm Mohs Stage 1 Specimen: 1 Mohs Final defect size Length: 2 cm Mohs Final defect size Width: 1.6 cm Mohs Size of repair: 4 cm - Primary Mohs Type of Suture: Monocryl 5-0, Fast absorbing gut 5-0 . Indications for Mohs surgery: Large size, High risk location, Ill-defined margins. Appropriate Use Criteria (AUC): 8 . Anesthetic: 0.5% lidocaine with epinephrine and bicarbonate. Total volume of anesthetic administered: 9 ml. Clinical description: 1 cm pink atrophic papule. Procedure: Informed consent was obtained which included explanation of the Mohs surgery procedure, reasons why Mohs surgery was preferable to alternatives such as standard excision, and wound management, associated risks, scarring, and potential need for further surgery. The patient verbalized understanding and all questions were answered. The biopsy site/lesion was outlined, and the location was re-confirmed by the patient using a hand held mirror. The operative site was then prepped with antiseptic solution, draped, and anesthetized with a infiltration of local anesthetic. Following this, the clinically apparent portion of the tumor was surgically removed. A thin layer of tissue was then surgically excised around the tumor. Hemostasis was obtained with electrocautery, or aluminum chloride, and a pressure dressing was placed on the wound. Bipolar forceps were used in patients with an implanted electrical device. A reference map was drawn and the excised tissue was cut into an appropriate number of sections for examination in the Mohs micrographic laboratory. Edges of each tissue section were dyed with tissue marking ink inorder to achieve precise orientation. These tissue sections were then processed and stained to produce slides for evaluation of the entire peripheral and deep margins of the excised tissue. The prepared microscopic sections were then examined by the Mohs surgeon. Procedural Time Out: Patient identified with name and date of , Procedure verified, Correct site, if applicable. Stages: Stage 1 included multiple microscopic sections of 1 tissue specimens, At this point, no further tumor cells were identified. Tumor eradication was complete after a total of 1 stage(s) of surgery. Wound management: A discussion was held with the patient about reconstruction options and wound healing, addressing functional and cosmetic concerns along with benefits and potential risks of each approach., The resultant defect was examined and it was decided that a layered linear closure would best maintain appropriate function of the region without causing distortion of nearby anatomic structures, reduce postoperative morbidity, healing time and risk of infection. It was also required to restore function, eliminate space, relieve tension, prevent deformity, and approximate the edges of the defect, which extended to the deep subcutaneous tissues. Additionally, the defect is being reconstructed with the goal to approximate its appearance prior to Mohs micrographic surgery. The surgical defect and surrounding skin were prepped and draped with sterile towels to ensure a sterile field. Supplemental anesthesia was administered. The wound edges were undermined with a combination of sharp and blunt dissection in the deep subcutaneous plane. The long axis of the closure was oriented so as to parallel the relaxed skin tension lines as much as possible to minimize any pull or distortion on nearby anatomic structures. Linear closure of the circular excisional defect created bilateral incipient standing cones at each pole of the excision. The excision was then extended bilaterally at each end by the removal of this redundant tissue as Seminary triangles. Hemostasis was achievedwith spot electrocautery and suture ligation as needed. The defect was then closed in a layered fashion consisting of absorbable sutures in the deep subcutaneous plane followed by separate closure ofthe superficial subcutaneous tissue and skin with superficial cutaneous sutures. The wound was cleansed, a sterile pressure dressing was placed on it, and the patient was instructed in postoperative care.. Procedure Tolerated: Well, Without complications, Estimated blood loss 10 ml. Postoperative follow up: As needed for above and as scheduled Dr. Vance for skin exam. Photo: . 2023-03-11 09:18:04 2023-03-11 10:12:23 2023-03-11 10:48:03 Mohs Surgical Information Second Site Nurse/MA: Surgical Information 2nd Site . Electronic Signature on File CC: Anselmo Vance MD [facility] Dermatology [address], [facility] [address] [facility] [id number] * CC: Sravanthi Moncada, MICHAEL [address] [facility] [address] [facility] [address] * Electronically Reviewed/Signed by: Marsha Gill MD Author Signature Dt/Tm:03/11/2023 01:39 PM Department of Dermatology CS * EDMOND Regan Molly: PERFORM Event Display: Dermatology Outpt Proc Authored Date: [id number] DERMATOLOGY MOHS MAPPING IMAGES Name: LORAINE GALEAS Patient Number: [id number] : 1950 Date of Service: 03/11/2023 _ Electronic Signature on File Electronically Reviewed/Signed by: Rema Regan Author Signature Dt/Tm:03/11/2023 12:32 PM Electronically Reviewed/Signed by: Marsha Gill MD Cosigner Signature Dt/Tm: 03/11/2023 02:16 PM Department of Dermatology [facility] Patient Care team information Care Team Personnel Name: Miguel Park Keri Position: Pharmacist Member Role: Pharmacy - Lifetime Name: Miguel Reyes Blaine Position: Pharmacist Member Role: Pharmacy - Lifetime Name: MIKA Moncada, Sravanthi Will Position: Referring DIRECT Member Role: Primary Care Provider Address: Address: [address] [address] [place] [address] [place] Care Team Related Persons Name: VEGA GARCIA Address: home [address] [facility] [place] [id number]
[2023-07-11] MEDS: THIAMINE HCL 100 MG in SYRINGE 9 ML IV SCH (08:37)
[2023-07-11] MEDS: PANTOprazole 40 MG TAB PO SCH (08:37)
[2023-07-11] MEDS: ASPIRIN 81 MG ECTAB PO SCH (08:37)
[2023-07-11] MEDS: POLYETHYLENE (MIRALAX) 17 GM PACK PO SCH (08:41)
[2023-07-11] MEDS: oxyCODONE HCL IR 5 MG TAB (IMMEDIATE RELEASE) PO PRN ×3 (08:46→23:42)
[2023-07-11] MEDS: LORazepam 0.5 MG TAB PO PRN ×2 (13:46→23:41)
--- NOTE | 2023-07-11 17:19 | Hospitalist Progress Note ---
Date of Service July 11, 2023 Assessment & Plan (1) Hallucinations: Plan: Trying to decide if this is DT without tachycardia and hypertension, vs metabolic encephalopathy vs some aberrant dementia with psychosis no evidence of injury or neurologic deficit CT head is negative for intracranial injury nursing requests to hold heparin, check lyme, restart antibiotics, reculture urine, psychiatry consult discloses pt drink approx a box of wine a day, concern that these episodes are alcohol withdrawal, given 500 mg iv thiamine no change with low doses of librium, has prn ativan for back up (2) Catheter-associated urinary tract infection: Plan: Chronic suprapubic catheter. Urology consultation appreciated. Previous cultures grew Pseudomonas. Urine culture revealed pinpoint growth and is reintubating. Blood cultures negative to date. received 3 days of cefepime Consult ID recommended one dose of tobramycin, treat pseudomonas culture as uti poa with his clinical picture Recommend exchanging suprapubic catheter, this was completed on 07/08 repeat urine culture, restart cefepime (3) Dysphagia: Plan: Patient reports some episodes of dysphagia - difficult time swallowing particular foods like rice. He denies GERD symptoms. Possible esophageal dysmotility. He may benefit from an outpatient workup. Not a significant clinical problem at this time (4) Weakness: Plan: Due to UTI. OT and PT assessments recommend rehab Admission and Anticipated Discharge Date Admission Date: July 04, 2023 Subjective pt is confused with hallucinations, is in the room and discussed pt with one dose tobramycin treatment, now hallucinating, re culture, re start cefepime based on cultures, psyche consult, test for lyme ammonia negative does have history of alcohol use in significant amounts, is not with tachycardia or hypertension and little improvement with low dose librium, is calm and not agitated Physical Exam Physical Exam: The patient appeared well nourished and normally developed. Vital signs as documented. Head exam is normocephalic Neck is without JVD, thyromegaly, or carotid bruits. Lungs are clear to auscultation, no focal loss of breath sounds Cardiac exam, Rhythm is regular.. No murmurs, rubs or gallops. Abdominal exam reveals normal bowel sounds, soft non tender, no masses Extremities are nonedematous and both pedal pulses are present Neurologic exam is alert calmly describes hallucinations maybe a bit shakey Skin is with tinea versicolor on torso and arms Psychologically is without concerns for anxiety or depression.. Results & Data Results & Data Vital Signs (Past 12 Hours) Vital Signs Temp Pulse Resp BP Pulse Ox O2 Del Method 07/11/23 14:58 97.7 F 88 16 134/84 94 Room Air 07/11/23 11:44 97.9 F 104 H 18 130/91 94 Room Air 07/11/23 10:52 Room Air 07/11/23 07:18 97.9 F 87 17 146/88 H 93 Room Air Laboratory Results reviewed cbc reviewed chemistry PG Care Time/CCT Total # of Minutes Spent Total Time Spent with Patient: Total time spent is greater than 50% in coordination of care (as documented) at patient's floor/unit and/or counseling patient: Coding Level of Care Code 25218 SUB INP/OBS CARE 3/50MIN Diagnoses Hallucinations R44.3 Catheter-associated urinary tract infection T83.511A; N39.0 Encounter type: initial encounter Indwelling urinary catheter type: unspecified Dysphagia R13.10 Weakness R53.1 (2) Catheter-associated urinary tract infection Encounter type: initial encounter Indwelling urinary catheter type: unspecified Qualified Code(s): T83.511A - Infection and inflammatory reaction due to indwelling urethral catheter, initial encounter; N39.0 - Urinary tract infection, site not specified
[2023-07-11] MEDS: CEFEPIME 2,000 MG in SYRINGE 0 ML IV SCH (20:54)
[2023-07-12] MEDS ORDERED: diphenhydrAMINE 50 MG/ML VIAL IV STA ×2 (02:09→02:40)
[2023-07-12] MEDS: oxyCODONE HCL IR 5 MG TAB (IMMEDIATE RELEASE) PO PRN ×3 (03:41→20:10)
[2023-07-12] MEDS: CEFEPIME 2,000 MG in SYRINGE 0 ML IV SCH ×3 (03:45→17:57)
[2023-07-12] MEDS ORDERED: HYDROmorphone INJ 0.5 MG/0.5 ML SYR IV STA (06:03)
[2023-07-12] MEDS ORDERED: HYDROmorphone INJ 0.5 MG/0.5 ML SYR ONE (06:19)
[2023-07-12 06:42] LABS: Hematocrit (blood only) 53.2 % (42.0-52.0); Hemoglobin 17.9 g/dl (14.0-18.0); Mean Corpuscular Hemoglobin 32.1 pg (25.0-34.0); Mean Corpuscular Hgb Conc 33.6 g/dL (32.0-36.0); Mean Corpuscular Volume 95.3 fL (80.0-100.0); Mean Platelet Volume 9.3 fL (9.4-12.4); Platelet Count 354 K/uL (130-400); RDW Coefficient of Variation 13.1 % (11.5-14.5); RDW Standard Deviation 46.2 fL (36.4-46.3); Red Blood Count 5.58 M/uL (4.70-6.10); White Blood Count 8.29 K/ul (4.8-10.8)
[2023-07-12] MEDS: LORazepam 0.5 MG TAB PO PRN ×2 (06:43→20:29)
[2023-07-12 07:06] LABS: Albumin Globulin Ratio 1.1 (0.9-2); Albumin Level 3.7 gm/dl (3.4-5.0); BUN Creatinine Ratio 22.5 (10-20); Bilirubin,Total 1.2 mg/dl (0.2-1.0); Calcium 9.7 mg/dl (8.6-10.3); Creatinine Clr Calc Pharmacy 75.3 ml/min; Est GFR (African American) 76.5 ml/min; Globulin 3.4 gm/dl (2.5-4.0); Potassium 4.6 mmol/L (3.5-5.1); Total Protein 7.1 gm/dl (6.0-8.3)
[2023-07-12 07:37] LABS: Lyme Ab IgG w/WB Rflx Negative (Negative); Lyme Ab IgM w/WB Rflx Negative (Negative)
[2023-07-12] MEDS: POLYETHYLENE (MIRALAX) 17 GM PACK PO SCH (08:25)
[2023-07-12] MEDS: ASPIRIN 81 MG ECTAB PO SCH (08:25)
[2023-07-12] MEDS: PANTOprazole 40 MG TAB PO SCH (08:25)
[2023-07-12] MEDS: THIAMINE HCL 100 MG in SYRINGE 9 ML IV SCH ×2 (08:27→09:24)
[2023-07-12] MEDS ORDERED: bisacodyL 10 MG SUPP PR STA (12:44)
--- NOTE | 2023-07-12 12:50 | Hospitalist Progress Note ---
Date of Service July 12, 2023 Assessment & Plan (1) Hallucinations: Plan: now seemingly to manifest more such that this appears to be alcohol withdrawal, other metabolic causes of confusion have been ruled out no evidence of injury or neurologic deficit CT head is negative for intracranial injury we will avoid antipsychotics begin scheduled benzodiazepines with as needed presents with days of pain backup. discloses pt drink approx a box of wine a day, concern that these episodes are alcohol withdrawal, given 500 mg iv thiamine (2) Catheter-associated urinary tract infection: Plan: Chronic suprapubic catheter. Urology consultation appreciated. Previous cultures grew Pseudomonas. Urine culture revealed pinpoint growth and is reintubating. Blood cultures negative to date. received 3 days of cefepime Consult ID recommended one dose of tobramycin, treat pseudomonas culture as uti poa with his clinical picture Recommend exchanging suprapubic catheter, this was completed on 07/08 repeat urine culture, restart cefepime 07/11/2023 (3) Dysphagia: Plan: Patient reports some episodes of dysphagia - difficult time swallowing particular foods like rice. He denies GERD symptoms. Possible esophageal dysmotility. He may benefit from an outpatient workup. Not a significant clinical problem at this time (4) Weakness: Plan: Due to UTI. OT and PT assessments recommend rehab Plan patient having constipation had some vasovagal reaction to this will have a to collect suppository Admission and Anticipated Discharge Date Admission Date: July 04, 2023 Subjective patient is somewhat better today with less hallucinations is more tremulous and tachycardic consistent with likely alcohol withdrawal. Interesting also restart antibiotics for urinary tract infection. Psychiatry wishes to avoid antipsychotics. We will begin low-dose scheduled benzodiazepines for alcohol withdrawal. Physical Exam Physical Exam: Patient has a somewhat carlee complexion he was less hallucinatory in his conversation but did have tangential thinking he was tremulous and tachycardic Results & Data Results & Data Vital Signs (Past 12 Hours) Vital Signs Temp Pulse Resp BP Pulse Ox O2 Del Method 07/12/23 11:43 102 H 94 Room Air 07/12/23 11:42 103 H 93 Room Air 07/12/23 11:36 97.9 F 80 20 145/67 H 95 Room Air 07/12/23 11:35 121 H 22 92/57 L 93 Room Air 07/12/23 08:00 Room Air 07/12/23 07:59 98.1 F 113 H 16 118/83 92 Room Air 07/12/23 06:26 98.1 F 118 H 20 132/88 94 Room Air 07/12/23 02:21 98.1 F 88 22 165/89 H 95 Room Air Laboratory Results reviewed EKG showing sinus tachycardia reviewed Lyme testing which was negative reviewed CBC and comprehensive metabolic panel discussed case with behavioral health unit psych liaison PG Care Time/CCT Total # of Minutes Spent Total Time Spent with Patient: Total time spent is greater than 50% in coordination of care (as documented) at patient's floor/unit and/or counseling patient: Coding Level of Care Code 14225 SUB INP/OBS CARE 2/35MIN Diagnoses Hallucinations R44.3 Catheter-associated urinary tract infection T83.511A; N39.0 Encounter type: initial encounter Indwelling urinary catheter type: unspecified Dysphagia R13.10 Weakness R53.1 (2) Catheter-associated urinary tract infection Encounter type: initial encounter Indwelling urinary catheter type: unspecified Qualified Code(s): T83.511A - Infection and inflammatory reaction due to indwelling urethral catheter, initial encounter; N39.0 - Urinary tract infection, site not specified
[2023-07-12] MEDS: chlordiazePOXIDE HCl 5 MG CAP PO SCH ×2 (15:00→20:50)
[2023-07-13] MEDS: oxyCODONE HCL IR 5 MG TAB (IMMEDIATE RELEASE) PO PRN ×6 (00:44→23:58)
[2023-07-13] MEDS: CEFEPIME 2,000 MG in SYRINGE 0 ML IV SCH (02:09)
[2023-07-13] MEDS: LORazepam 0.5 MG TAB PO PRN ×2 (02:13→23:58)
[2023-07-13] MEDS: POLYETHYLENE (MIRALAX) 17 GM PACK PO SCH (08:46)
[2023-07-13] MEDS: ASPIRIN 81 MG ECTAB PO SCH (08:47)
[2023-07-13] MEDS: PANTOprazole 40 MG TAB PO SCH (08:47)
[2023-07-13] MEDS: chlordiazePOXIDE HCl 5 MG CAP PO SCH ×3 (08:47→20:20)
[2023-07-13] MEDS: THIAMINE HCL 100 MG in SYRINGE 9 ML IV SCH (08:49)
[2023-07-13] MEDS ORDERED: FLUCONAZOLE 100 MG TAB PO ONE (16:50)
--- NOTE | 2023-07-13 16:57 | Hospitalist Progress Note ---
Date of Service July 13, 2023 Assessment & Plan (1) Hallucinations: Plan: now seemingly to be secondary to alcohol withdrawal, other metabolic causes of confusion have been ruled out no evidence of injury or neurologic deficit CT head is negative for intracranial injury we will avoid antipsychotics Improved with scheduled Librium reduced dose on the evening of 07/13/2023 discloses pt drink approx a box of wine a day, concern that these episodes are alcohol withdrawal, given 500 mg iv thiamine (2) Catheter-associated urinary tract infection: Plan: Chronic suprapubic catheter. Urology consultation appreciated. Previous cultures grew Pseudomonas. Urine culture revealed pinpoint growth and is reintubating. Blood cultures negative to date. received 3 days of cefepime Consult ID recommended one dose of tobramycin, treat pseudomonas culture as uti poa with his clinical picture Recommend exchanging suprapubic catheter, this was completed on 07/08 repeat urine culture, restart cefepime 07/11/2023, cultures negative cefepime discontinued on the (3) Dysphagia: Plan: Resolved at this time (4) Weakness: Plan: Due to UTI./Metabolic encephalopathy. Certainly could be result of chronic alcohol use OT and PT assessments recommend rehab Plan Constipation is resolved. Instituting Diflucan therapy for tinea versicolor 10 mg once a week for 2 weeks Admission and Anticipated Discharge Date Admission Date: July 04, 2023 Subjective Patient is improved denies hallucinations however still not quite himself. A bit off. Complains of his rash which looks to be tinea versicolor to me. Tolerating Librium without much sleepiness although slightly fatigued. Will reduce dose on 07/13/2023. Physical Exam Physical Exam: Awake alert appropriate. Well demarcated slightly raised erythematous rash in his flexural folds of his arms armpits across his chest and torso. Neurologically he has no focal deficits he is not complaining of hallucinations at this time Results & Data Results & Data Vital Signs (Past 12 Hours) Vital Signs Temp Pulse Resp BP Pulse Ox O2 Del Method 07/13/23 14:41 97.7 F 100 H 18 112/66 92 Room Air 07/13/23 11:27 Room Air 07/13/23 07:47 97.5 F L 76 16 123/73 94 Room Air PG Care Time/CCT Total # of Minutes Spent Total Time Spent with Patient: Total time spent is greater than 50% in coordination of care (as documented) at patient's floor/unit and/or counseling patient: Coding Level of Care Code 76755 SUB INP/OBS CARE MIN Diagnoses Hallucinations R44.3 Catheter-associated urinary tract infection T83.511A; N39.0 Encounter type: initial encounter Indwelling urinary catheter type: unspecified Dysphagia R13.10 Weakness R53.1 (2) Catheter-associated urinary tract infection Encounter type: initial encounter Indwelling urinary catheter type: unspecified Qualified Code(s): T83.511A - Infection and inflammatory reaction due to indwelling urethral catheter, initial encounter; N39.0 - Urinary tract infection, site not specified
--- NOTE | 2023-07-13 19:59 | Electrocardiogram Report ---
Test Reason : Blood Pressure : / mmHG Vent. Rate : 102 BPM Atrial Rate : 102 BPM P-R Int : 174 ms QRS Dur : 088 ms QT Int : 358 ms P-R-T Axes : 038 007 -03 degrees QTc Int : 466 ms Sinus tachycardia with Premature atrial complexes Nonspecific ST abnormality Abnormal ECG When compared with ECG of 04-JUL-2023 16:32, No significant change was found Confirmed by Ga Carrasco ([id number]) on 07/13/2023 7:59:13 PM Referred By: REFERRED SELF Confirmed By:Ga Carrasco
[2023-07-14] MEDS: oxyCODONE HCL IR 5 MG TAB (IMMEDIATE RELEASE) PO PRN ×4 (04:48→22:02)
[2023-07-14] MEDS: THIAMINE HCL 100 MG in SYRINGE 9 ML IV SCH (08:08)
[2023-07-14] MEDS: PANTOprazole 40 MG TAB PO SCH (08:09)
[2023-07-14] MEDS: ASPIRIN 81 MG ECTAB PO SCH (08:09)
[2023-07-14] MEDS: POLYETHYLENE (MIRALAX) 17 GM PACK PO SCH (08:09)
[2023-07-14] MEDS: chlordiazePOXIDE HCl 5 MG CAP PO SCH ×3 (08:19→20:59)
[2023-07-14] MEDS ORDERED: CETIRIZINE HCL 10 MG TABLET PO ONE (11:45)
[2023-07-14] MEDS ORDERED: FAMOTIDINE 20 MG in SYRINGE 3 ML IV ONE (11:45)
[2023-07-14 12:15] LABS: Basophils # (auto) 0.08 K/uL (0.00-0.20); Basophils % (auto) 0.8 %; Eosinophils # (auto) 2.99 K/uL (0.00-0.50); Eosinophils % (auto) 28.7 %; Hematocrit (blood only) 46.1 % (42.0-52.0); Hemoglobin 15.9 g/dl (14.0-18.0); Immature Granulocytes # (auto) 0.18 K/uL (0.01-0.20); Immature Granulocytes % (auto) 1.7 %; Lymphocytes # (auto) 1.29 K/uL (1.20-3.40); Lymphocytes % (auto) 12.4 %; Mean Corpuscular Hemoglobin 32.6 pg (25.0-34.0); Mean Corpuscular Hgb Conc 34.5 g/dL (32.0-36.0); Mean Corpuscular Volume 94.7 fL (80.0-100.0); Mean Platelet Volume 9.4 fL (9.4-12.4); Monocytes # (auto) 1.14 K/uL (0.11-0.59); Monocytes % (auto) 10.9 %; Neutrophils # (auto) 4.74 K/uL (1.40-6.50); Neutrophils % (auto) 45.5 %; Platelet Count 318 K/uL (130-400); RDW Coefficient of Variation 13.1 % (11.5-14.5); Red Blood Count 4.87 M/uL (4.70-6.10); White Blood Count 10.42 K/ul (4.8-10.8)
[2023-07-14] MEDS ORDERED: predniSONE 10 MG TABLET PO ONE (13:32)
--- NOTE | 2023-07-14 19:11 | Hospitalist Progress Note ---
Date of Service July 14, 2023 Assessment & Plan (1) Hallucinations: Plan: now seemingly to be secondary to alcohol withdrawal, other metabolic causes of confusion have been ruled out no evidence of injury or neurologic deficit CT head is negative for intracranial injury we will avoid antipsychotics Improved with scheduled Librium reduced dose on the evening of 07/13/2023 discloses pt drink approx a box of wine a day, concern that these episodes are alcohol withdrawal, given 500 mg iv thiamine (2) Catheter-associated urinary tract infection: Plan: Chronic suprapubic catheter. Urology consultation appreciated. Previous cultures grew Pseudomonas. Urine culture revealed pinpoint growth and is reintubating. Blood cultures negative to date. received 3 days of cefepime Consult ID recommended one dose of tobramycin, treat pseudomonas culture as uti poa with his clinical picture Recommend exchanging suprapubic catheter, this was completed on 07/08 repeat urine culture, restart cefepime 07/11/2023, cultures negative cefepime discontinued on the (3) Dysphagia: Plan: Resolved at this time (4) Weakness: Plan: Due to UTI./Metabolic encephalopathy. Certainly could be result of chronic alcohol use OT and PT assessments recommend rehab Plan Constipation is resolved. Instituting Diflucan therapy for tinea versicolor 10 mg once a week for 2 weeks rash sliglty worsened will try pepcid, zyrtec and one dose of prednisone, may benefit from outpt Dermatology eval Admission and Anticipated Discharge Date Admission Date: July 04, 2023 Subjective Patient is improved denies hallucinations however still not quite himself. A bit off. Complains of his rash which looks to be tinea versicolor to me. pt with worsened diffuse rash, was given antifungal 07/13, will try antihistamines and one dose prednisone Physical Exam Physical Exam: Awake alert appropriate. Well demarcated slightly raised erythematous rash in his flexural folds of his arms armpits across his chest and torso. a follicular rash on his face, question if worsened by lack of hygene Neurologically he has no focal deficits he is not complaining of hallucinations at this time Results & Data Results & Data Vital Signs (Past 12 Hours) Vital Signs Temp Pulse Resp BP Pulse Ox O2 Del Method 07/14/23 15:37 98.1 F 76 18 137/88 93 Room Air 07/14/23 07:21 97.9 F 68 16 145/88 H 95 Room Air Laboratory Results reviewed cbc PG Care Time/CCT Total # of Minutes Spent Total Time Spent with Patient: Total time spent is greater than 50% in coordination of care (as documented) at patient's floor/unit and/or counseling patient: Coding Level of Care Code 56497 SUB INP/OBS CARE 2/35MIN Diagnoses Hallucinations R44.3 Catheter-associated urinary tract infection T83.511A; N39.0 Encounter type: initial encounter Indwelling urinary catheter type: unspecified Dysphagia R13.10 Weakness R53.1 (2) Catheter-associated urinary tract infection Encounter type: initial encounter Indwelling urinary catheter type: unspecified Qualified Code(s): T83.511A - Infection and inflammatory reaction due to indwelling urethral catheter, initial encounter; N39.0 - Urinary tract infection, site not specified
[2023-07-14] MEDS: LORazepam 0.5 MG TAB PO PRN (23:57)
[2023-07-15] MEDS: oxyCODONE HCL IR 5 MG TAB (IMMEDIATE RELEASE) PO PRN ×4 (01:49→23:39)
[2023-07-15] MEDS: ASPIRIN 81 MG ECTAB PO SCH (07:28)
[2023-07-15] MEDS: THIAMINE HCL 100 MG TAB PO SCH (07:28)
[2023-07-15] MEDS: PANTOprazole 40 MG TAB PO SCH (07:28)
[2023-07-15] MEDS: POLYETHYLENE (MIRALAX) 17 GM PACK PO SCH (07:28)
[2023-07-15] MEDS: chlordiazePOXIDE HCl 5 MG CAP PO SCH ×3 (07:29→19:46)
[2023-07-15 13:39] LABS: BUN Creatinine Ratio 26.1 (10-20); Calcium 9.6 mg/dl (8.6-10.3); Creatinine Clr Calc Pharmacy 60.6 ml/min; Est GFR (African American) 58.8 ml/min; Est GFR (Non-African American) 50.7 ml/min; Potassium 3.9 mmol/L (3.5-5.1)
--- NOTE | 2023-07-15 19:25 | Hospitalist Progress Note ---
Date of Service July 15, 2023 Assessment & Plan (1) Hallucinations: Plan: now seemingly to be secondary to alcohol withdrawal, other metabolic causes of confusion have been ruled out no evidence of injury or neurologic deficit CT head is negative for intracranial injury we will avoid antipsychotics Improved with scheduled Librium reduced dose on the evening of 07/13/2023ontinue to taper as an outpatient discloses pt drink approx a box of wine a day, concern that these episodes are alcohol withdrawal, given 500 mg iv thiamine continues on daily thiamine (2) Catheter-associated urinary tract infection: Plan: Chronic suprapubic catheter. Urology consultation appreciated. Previous cultures grew Pseudomonas. Urine culture revealed pinpoint growth and is reintubating. Blood cultures negative to date. received 3 days of cefepime Consult ID recommended one dose of tobramycin, treat pseudomonas culture as uti poa with his clinical picture Recommend exchanging suprapubic catheter, this was completed on 07/08 repeat urine culture, negative cefepime no additional antibiotics used (3) Dysphagia: Plan: Resolved at this time (4) Weakness: Plan: Due to UTI./Metabolic encephalopathy. Certainly could be result of chronic alcohol use OT and PT assessments recommend rehab Plan Constipation is resolved. Instituting Diflucan therapy for tinea versicolor 10 mg once a week for 2 weeks will try pepcid, zyrtec and one dose of prednisone, may benefit from outpt Dermatology eval Admission and Anticipated Discharge Date Admission Date: July 04, 2023 Subjective Patient is improved denies hallucinations however still some bradykinesia I would say. Tapering Librium dose to twice daily Complains of his rash which looks to be tinea versicolor to me. patient treated with antihistamines given 1 dose of fluconazole suprapubic catheter is still draining slightly concentrated urine 09/14, renal function stable Physical Exam Physical Exam: Awake alert appropriate. Well demarcated slightly raised erythematous rash in his flexural folds of his arms armpits across his chest and torso. a follicular rash on his face, question if worsened by lack of hygene Neurologically he has no focal deficits he is not complaining of hallucinations at this time Results & Data Results & Data Vital Signs (Past 12 Hours) Vital Signs Temp Pulse Resp BP Pulse Ox O2 Del Method 07/15/23 14:37 97.5 F L 87 18 106/82 95 Room Air Laboratory Results reviewed chemistry PG Care Time/CCT Total # of Minutes Spent Total Time Spent with Patient: Total time spent is greater than 50% in coordination of care (as documented) at patient's floor/unit and/or counseling patient: Coding Level of Care Code 04659 SUB INP/OBS CARE 2/35MIN Diagnoses Hallucinations R44.3 Catheter-associated urinary tract infection T83.511A; N39.0 Encounter type: initial encounter Indwelling urinary catheter type: unspecified Dysphagia R13.10 Weakness R53.1 (2) Catheter-associated urinary tract infection Encounter type: initial encounter Indwelling urinary catheter type: unspecified Qualified Code(s): T83.511A - Infection and inflammatory reaction due to indwelling urethral catheter, initial encounter; N39.0 - Urinary tract infection, site not specified
[2023-07-15] MEDS: LORazepam 0.5 MG TAB PO PRN (23:39)
[2023-07-16] MEDS: oxyCODONE HCL IR 5 MG TAB (IMMEDIATE RELEASE) PO PRN ×2 (04:24→09:04)
[2023-07-16] MEDS: ASPIRIN 81 MG ECTAB PO SCH (09:04)
[2023-07-16] MEDS: PANTOprazole 40 MG TAB PO SCH (09:04)
[2023-07-16] MEDS: THIAMINE HCL 100 MG TAB PO SCH (09:04)
[2023-07-16] MEDS: POLYETHYLENE (MIRALAX) 17 GM PACK PO SCH (09:04)
[2023-07-16] MEDS: chlordiazePOXIDE HCl 5 MG CAP PO SCH ×2 (09:36→13:27)
--- NOTE | 2023-07-16 17:59 | Discharge Summary ---
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 Patient reports symptoms have been vague and ongoing for approximately two months with acute worsening over the last several days. He reports generalized weakness and fatigue with difficulty getting up and out of bed to perform his ADLs. He has lower abdominal pain as well as pain and drainage at his suprapubic catheter insertion point. He has had some difficulty emptying his urinary bag due to increased amount of sediment in the bag which occasionally blocks the tubing. He has had some nausea and non-bloody/non-bilious vomiting as well as decreased oral intake and chills. He reports losing 12# over the last week. Prior urine cultures POSITIVE for Pseudomonas aeruginosa (most recently isolated from culture on 01/23/23 - Resistant to Levaquin and Cipro). He has had yeast in the urine as well. As a separate issue, patient reports episodes of difficulty swallowing and food getting stuck. This happens frequently with rice. He denies pain with swallowing. Denies GERD symptoms. In the ER he is afebrile, HD stable, non-toxic in appearance ER Course: Tylenol 1gm IV Lorazepam 1mg SL Cefepime 2gm IV (19:28) Principal Diagnosis encephalopathy secondary to alcohol withdrawal and metabolic encephalopathy from uti poa catheter associated urinary tract infection poa Discharge Exam pt with diffuse skin rash cardiac is regular lungs are clear neurology is alert and oriented but has some confusion at times, not clear if some baseline memory loss Discharge Data Allergies Allergy/AdvReac Type Severity Reaction Status Date / Time No Known Allergies Allergy Verified 07/04/23 17:17 Consultations 07/04/23 19:26 ED Decision to Admit Stat 07/04/23 20:43 Consult Urology Routine 07/07/23 11:43 Consult Infectious Diseases Routine 07/11/23 13:30 Consult Behavioral Health Liaison Routine Ordered Studies 07/04/23 21:16 CT abd pelvis wo con Routine 07/06/23 23:21 CT head/brain wo con Stat CTA neck with con [CT angio neck with con] Stat 07/10/23 11:58 CT head/brain wo con Routine Hospital Course (1) Hallucinations: now seemingly to be secondary to alcohol withdrawal, other metabolic causes of confusion could have been uti poa metabolic encephalopathy no evidence of injury or neurologic deficit CT head is negative for intracranial injury we will avoid antipsychotics Improved with scheduled Librium reduced dose on the evening of 3continue to taper as an outpatient discloses pt drink approx a box of wine a day, concern that these episodes are alcohol withdrawal, given 500 mg iv thiamine continues on daily thiamine (2) Catheter-associated urinary tract infection: Chronic suprapubic catheter. Urology consultation appreciated. Previous cultures grew Pseudomonas. Urine culture revealed pinpoint growth and is reintubating. Blood cultures negative to date. received 3 days of cefepime Consult ID recommended one dose of tobramycin, treat pseudomonas culture as uti poa with his clinical picture Recommend exchanging suprapubic catheter, this was completed on 07/08 repeat urine culture, negative cefepime no additional antibiotics used (3) Dysphagia: Resolved at this time (4) Weakness: Due to UTI./Metabolic encephalopathy. Certainly could be result of chronic alcohol use OT and PT assessments recommend rehab- [facility] 07/16/23 Plan Constipation is resolved. Instituting Diflucan therapy for tinea versicolor 10 mg once a week for 2 weeks will try pepcid, zyrtec and one dose of prednisone, may benefit from outpt Dermatology christian, currently sees Total Time Total Time Spent Total Time Spent (In Minutes): It required greater than 30 minutes to prepare this patient for discharge Discharge Plan Discharge Items Patient Disposition: Transfer Inpatient Rehab Fac Reason For Visit: PSEUDOMONAS UTI Discharge Diagnosis: pseudomonas uti poa alcohol withdrawal with encephalopathy and hallucination tinea versicolor Activity: Per Instructions section Activity Comment: per PT/OT Non-emergency contact: Primary Care Provider Call non-emergency contact if: your symptoms worsen Follow-up/Referrals: Austyn Lazaro DO [Primary Care Provider] - Diet: Regular Addtl Attending Provider Instructions: continue thiamine and tapering Librium pt had one dose of fluconazole for tinea and may have a repeat in once week Pending Studies at Discharge: No Stand-Alone Forms: My [facility] Skilled Items Patient informed of condition?: Yes DNR: No Discharge Level of Care: Acute rehab Communicable Disease: No Discharge Prognosis: Stable Lines: None Urinary Catheter: Yes Medications and DC Order Prescriptions: New polyethylene glycol 3350 [Miralax] 17 gram Powder In Packet 17 g PO DAILY Qty: 30 0RF pantoprazole 40 mg Tablet,Delayed Release (Dr/Ec) 40 mg PO QAM Qty: 30 0RF thiamine HCl (vitamin B1) 100 mg tablet 100 mg PO DAILY Qty: 30 0RF chlordiazepoxide HCl 10 mg capsule See Rx Instructions .ROUTE .COMPLEX Qty: 6 0RF Rx Instructions: 10 mg orally ;bid for 2 days then q day then stop Continued cholecalciferol (vitamin D3) 25 mcg (1,000 unit) capsule 1,000 unit PO QAM multivitamin Tablet 1 tab PO QAM aspirin [Adult Low Dose Aspirin] 81 mg tablet,delayed release (DR/EC) 81 mg PO QAM duloxetine 60 mg capsule,delayed release(DR/EC) 60 mg PO QAM Rx Instructions: TAKE 1 CAPSULE BY MOUTH ONCE DAILY IN THE MORNING Discontinued tramadol 50 mg tablet 50 mg PO DAILY Qty: 30 0RF Probiotic 10 billion cell capsule 1 cell PO QAM ascorbate calcium (vitamin C) 500 mg tablet 500 mg PO QAM vitamin B complex capsule 1 cap PO QAM omega 4-avf-mba-fish oil [Fish Oil] 1,000 mg (120 mg-180 mg) Capsule 1 cap PO QAM vitamin E (dl, acetate) 90 mg (200 unit) Capsule 90 mg PO QAM amitriptyline 50 mg tablet 50 mg PO HS Discharge Orders: Discharge Order (Routine); Ordered 07/16/23 Ordered By: Austyn Duran Admission Data Admit Date/Time: 07/04/23 20:43 Attending Provider: Austyn Duran Admit Provider: Saba Oglesby Primary Care Provider: Austyn Lazaro Other Providers: Jesus Ledesma; Saba Oglesby; Rita Ren; George Viveros; Tiara Jang; Lesli Castillo; Navya Cuellar; Zena Ordonez; Emmie Coronel; Matt Lind; Olivia Rushing; Mee Pettit Coding Level of Care Code 85519 INP/OBS DISCH >30 MIN Diagnoses Hallucinations R44.3 Catheter-associated urinary tract infection T83.511A; N39.0 Encounter type: initial encounter Indwelling urinary catheter type: unspecified Dysphagia R13.10 Weakness R53.1
== END 2023-07-16 13:32 | DRG 698 ==
LOC: ED 15:33 → SUATTDRO 20:43 → EDINP 20:43 → 3E 21:15